=== PATIENT | female | born 1940 | race Caucasian/White ===

== ENCOUNTER 2016-08-28 09:47 | Outpatient (CLI) | payer MEDICARE, OTHER | END 2016-08-28 09:48 | disposition home or self-care (01) | DX: M81.0 Age-related osteoporosis without current pathological fracture (principal) ==

== ENCOUNTER 2016-09-30 10:14 | Outpatient (CLI) | payer MEDICARE, OTHER | END 2016-09-30 10:15 | disposition home or self-care (01) | DX: Z79.899 Other long term (current) drug therapy (principal); E78.5 Hyperlipidemia, unspecified; I49.9 Cardiac arrhythmia, unspecified ==

== ENCOUNTER 2017-06-24 10:25 | Outpatient (CLI) | payer MEDICARE, OTHER ==
[2017-06-24 19:14] LABS: BASOPHILS # (AUTO) 0.1 10^3/uL (0.0-0.1); BASOPHILS % (AUTO) 0.7 %; EOSINOPHILS # (AUTO) 0.4 10^3/uL (0.0-0.7); EOSINOPHILS % (AUTO) 5.1 %; HGB - HEMOGLOBIN 13.9 g/dL (12.0-16.0); LYMPHOCYTES # (AUTO) 1.3 10^3/uL (1.5-3.5); LYMPHOCYTES % (AUTO) 17.3 %; MEAN CORPUSCULAR HEMOGLOBIN 29.4 pg (27.0-31.0); MEAN CORPUSCULAR HGB CONC 33.1 g/dL (32.0-36.0); MEAN CORPUSCULAR VOLUME 88.9 fL (81.0-99.0); MEAN PLATELET VOLUME 7.8 fL (7.9-10.8); MONOCYTES # (AUTO) 0.4 10^3/uL (0.0-1.0); MONOCYTES % (AUTO) 4.6 %; NEUTROPHILS # (AUTO) 5.5 10^3/uL (1.5-6.6); NEUTROPHILS % (AUTO) 72.3 %; PLT - PLATELET COUNT 253 10^3/uL (130-450); RED BLOOD COUNT 4.74 10^6/uL (4.20-5.40); RED CELL DISTRIBUTION WIDTH 13.2 % (12.0-15.0); WHITE BLOOD COUNT 7.7 x10^3/uL (4.8-10.8)
[2017-06-24 19:41] LABS: ALBUMIN 4.2 g/dL (3.2-5.5); ALBUMIN/GLOBULIN RATIO 1.4 (1.0-2.2); ALKALINE PHOSPHATASE 114 IU/L (42-121); ALT ALANINE AMINOTRANSFERASE 23 IU/L (10-60); AST ASPARTATE AMINOTRANSFERASE 29 IU/L (10-42); BILIRUBIN,TOTAL 1.8 mg/dL (0.2-1.0); BUN - BLOOD UREA NITROGEN 14 mg/dL (6-20); CALCIUM 9.3 mg/dL (8.5-10.3); CARBON DIOXIDE - CO2 24 mmol/L (21-32); CHLORIDE 102 mmol/L (101-111); CHOL/HDL RATIO 2.8 (<4.4); CHOLESTEROL 190 mg/dL; CREATININE 0.6 mg/dL (0.4-1.0); GFR - MDRD 97 (>89); GLUCOSE 92 mg/dL (70-100); HDL CHOLESTEROL 68 mg/dL; LDL CHOLESTEROL,CALCULATED 111 mg/dL; LDL/HDL RATIO 1.6 (<4.4); MAGNESIUM 2.2 mg/dL (1.7-2.8); SODIUM 134 mmol/L (135-145); TOTAL PROTEIN 7.2 g/dL (6.7-8.2); VLDL CHOLESTEROL 11 mg/dL
== END 2017-06-24 10:26 | disposition home or self-care (01) ==
LOC: LAB.WCP 10:25
PROVIDERS: ATTEND Internal Medicine Cardiovascular Disease
DX: E78.5 Hyperlipidemia, unspecified (principal); I47.1 Supraventricular tachycardia; R00.2 Palpitations; I49.3 Ventricular premature depolarization
CPT/HCPCS: 36415; 80053; 80061; 83735; 84443; 85025

== ENCOUNTER 2018-04-01 14:10 | Outpatient (CLI) | payer MEDICARE, OTHER ==
[2018-04-01 14:46] LABS: BASOPHILS % (AUTO) 0.2 %; EOSINOPHILS # (AUTO) 0.2 10^3/uL (0.0-0.7); EOSINOPHILS % (AUTO) 1.5 %; LYMPHOCYTES # (AUTO) 1.5 10^3/uL (1.5-3.5); LYMPHOCYTES % (AUTO) 14.4 %; MEAN CORPUSCULAR HEMOGLOBIN 30.3 pg (27.0-31.0); MEAN CORPUSCULAR HGB CONC 34.7 g/dL (32.0-36.0); MEAN CORPUSCULAR VOLUME 87.3 fL (81.0-99.0); MEAN PLATELET VOLUME 7.1 fL (7.9-10.8); MONOCYTES # (AUTO) 0.6 10^3/uL (0.0-1.0); MONOCYTES % (AUTO) 6.1 %; NEUTROPHILS % (AUTO) 77.8 %; PLT - PLATELET COUNT 263 10^3/uL (130-450); RED BLOOD COUNT 4.61 10^6/uL (4.20-5.40); RED CELL DISTRIBUTION WIDTH 12.5 % (12.0-15.0); WHITE BLOOD COUNT 10.2 x10^3/uL (4.8-10.8)
[2018-04-01 15:44] LABS: ALBUMIN 4.1 g/dL (3.2-5.5); ALBUMIN/GLOBULIN RATIO 1.3 (1.0-2.2); BILIRUBIN,TOTAL 1.8 mg/dL (0.2-1.0); CALCIUM 9.5 mg/dL (8.5-10.3); CREATININE 0.5 mg/dL (0.4-1.0); TOTAL PROTEIN 7.2 g/dL (6.7-8.2)
== END 2018-04-01 14:11 | disposition home or self-care (01) ==
LOC: LAB 14:10
PROVIDERS: ATTEND Nurse Practitioner
DX: R07.81 Pleurodynia (principal); R10.11 Right upper quadrant pain
CPT/HCPCS: 36415; 80053; 85025

== ENCOUNTER 2018-04-03 09:40 | Outpatient (CLI) | payer MEDICARE, OTHER ==
--- NOTE | 2018-04-03 11:08 | Ultrasound Report ---
Reason: ABDOMINAL PAIN, RUQ, RIB PAIN, RIGHT SIDED Procedure Date: 04/03/2018 Accession Number: [id number] / [id number] Procedure: US - Abdomen Limited CPT Code: FULL RESULT: EXAM: ABDOMEN ULTRASOUND LIMITED, RUQ EXAM DATE: 04/03/2018 10:29 AM. CLINICAL HISTORY: ABDOMINAL PAIN, RUQ, RIB PAIN, RIGHT SIDED. COMPARISON: RIBS W/PA CHEST RT 03/31/2018 11:56 AM ABD/PEL 12/19/2008 1:23 PM. TECHNIQUE: Real-time scanning was performed with static images obtained. FINDINGS: Liver: Normal in size and echotexture. 12.6 cm. No focal lesions are identified. Main portal vein flow: Hepatopetal. Gallbladder: Normal. No stones, wall thickening, or sonographic Navarrete's sign. Biliary System: CBD measures 4 mm. No intrahepatic or extrahepatic ductal dilatation. Other: Right kidney unremarkable. IMPRESSION: Normal. No cholelithiasis or cholecystitis. RADIA
== END 2018-04-03 09:41 | disposition home or self-care (01) ==
LOC: DI 09:40
PROVIDERS: ATTEND Nurse Practitioner
DX: R10.11 Right upper quadrant pain (principal); R07.81 Pleurodynia
CPT/HCPCS: 76705

== ENCOUNTER 2018-04-14 21:12 | Outpatient (CLI) | payer MEDICARE, OTHER | END 2018-04-14 21:13 | disposition critical access hospital (66) | LOC: EMS 21:12 | PROVIDERS: ATTEND Surgery | DX: R55 Syncope and collapse (principal); R11.2 Nausea with vomiting, unspecified; R06.00 Dyspnea, unspecified | CPT/HCPCS: A0425; A0429 ==

== ENCOUNTER 2018-04-14 21:33 | Emergency (ER) | payer MEDICARE, OTHER ==
--- NOTE | 2018-04-14 22:03 | ED Physician Documentation ---
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 family noted she turned very pale. she had brief nausea, emesis x 1. she was helped to ground, no loss of consciousness. after several minutes, she returned to baseline and is asymptomatic on ED arrival Review of Systems Constitutional: reports: Reviewed and negative Cardiac: reports: Reviewed and negative Respiratory: reports: Reviewed and negative GI: reports: Nausea, Vomiting. denies: Abdominal Pain : denies: Dysuria, Frequency Neurologic: reports: Generalized weakness (resolved), Syncope. 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 - Present Medications Home Medications: Ambulatory Orders Medication Instructions Recorded Confirmed Albuterol Sulfate [Proair Hfa 04/14/18 Inhaler] Aspirin [Aspirin EC] 81 mg PO 04/14/18 Cholecalciferol (Vitamin D3) 1,000 unit PO 04/14/18 [Vitamin D3] FLUoxetine [PROzac] 20 mg PO DAILY 04/14/18 Fluticasone [Flonase] 1 sprays GAEL DAILY 04/14/18 Fluticasone/Salmeterol [Advair 04/14/18 250-50 Diskus] Glucosamine HCl/Chondroitin Liz 1 each PO 04/14/18 [Endur-Flex Sr Tablet] Simvastatin [Zocor] 20 mg PO 04/14/18 Zinc 50 mg PO 04/14/18 - Allergies Allergies/Adverse Reactions: Allergies Allergy/AdvReac Type Severity Reaction Status Date / Time Sulfa (Sulfonamide Allergy Unknown Verified 04/14/18 21:42 Antibiotics) - Social History Does the pt smoke?: No Smoking Status: Never smoker Does the pt drink ETOH?: No Does the pt have substance abuse?: No - POLST Patient has POLST: No PD ED PE NORMAL - Vitals Vital signs reviewed: Yes - General General: Alert and oriented X 3, No acute distress, Well developed/nourished - HEENT HEENT: Atraumatic, PERRL, EOMI, Moist mucous membranes - Neck Neck: Supple, no meningeal sign - Cardiac Cardiac: RRR, No murmur, No gallop, No rub - Respiratory Respiratory: No respiratory distress, Clear bilaterally - Abdomen Abdomen: Normal bowel sounds, Soft, Non tender - Derm Derm: Normal color, Warm and dry - Extremities Extremities: No edema - Neuro Neuro: Alert and oriented X 3, 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, No motor deficit, No sensory deficit, Normal speech Eye Opening: Spontaneous Motor: Obeys Commands Verbal: Oriented GCS Score: 15 Results - Vitals Vitals: Vital Signs - 24 hr 04/14/18 04/14/18 04/14/18 21:36 22:49 23:26 Temperature 36.3 C L Heart Rate 95 85 94 Respiratory 20 16 19 Rate Blood Pressure 107/73 126/83 H 141/93 H O2 Saturation 97 97 97 Oxygen O2 Source Room air - EKG (time done) No standard instances Rate: Rate (enter#) (86) Rhythm: NSR [place]: Normal Intervals: Normal [place] QRS: Normal Ischemia: Normal ST segments - Labs Labs: Laboratory Tests 04/14/18 04/14/18 04/14/18 22:35 22:35 22:35 WBC 9.1 RBC 4.29 Hgb 12.8 Hct 37.6 MCV 87.6 MCH 29.9 MCHC 34.1 RDW 12.4 Plt Count 254 MPV 6.9 L Neut # (Auto) 7.0 H Lymph # (Auto) 1.3 L [place] # (Auto) 0.6 Eos # (Auto) 0.3 Baso # (Auto) 0.0 Absolute Nucleated RBC 0.00 Nucleated RBC % 0.0 Sodium 135 Potassium 4.0 Chloride 103 Carbon Dioxide 24 Anion Gap 8.0 BUN 19 Creatinine 0.6 Estimated GFR (MDRD) 97 Glucose 116 H Calcium 8.6 Troponin I < 0.04 PD MEDICAL DECISION MAKING - ED course Complexity details: reviewed results, re-evaluated patient, considered differential, d/w patient, d/w family Departure - Departure Disposition: 01 Home, Self Care Clinical Impression: Near syncope Condition: Good Instructions: ED Near Syncope Unkn Follow-Up: [facility] [Provider Group] [facility] [Provider Group] Discharge Date/Time: 04/14/18 23:32
[2018-04-14] MEDS ORDERED: SODIUM CHLORIDE 0.9% 500 ML IV STA (22:19)
[2018-04-14 22:46] LABS: BASOPHILS % (AUTO) 0.4 %; EOSINOPHILS # (AUTO) 0.3 10^3/uL (0.0-0.7); EOSINOPHILS % (AUTO) 2.8 %; HGB - HEMOGLOBIN 12.8 g/dL (12.0-16.0); LYMPHOCYTES # (AUTO) 1.3 10^3/uL (1.5-3.5); MEAN CORPUSCULAR HEMOGLOBIN 29.9 pg (27.0-31.0); MEAN CORPUSCULAR HGB CONC 34.1 g/dL (32.0-36.0); MEAN CORPUSCULAR VOLUME 87.6 fL (81.0-99.0); MEAN PLATELET VOLUME 6.9 fL (7.9-10.8); MONOCYTES # (AUTO) 0.6 10^3/uL (0.0-1.0); NEUTROPHILS % (AUTO) 76.8 %; PLT - PLATELET COUNT 254 10^3/uL (130-450); RED BLOOD COUNT 4.29 10^6/uL (4.20-5.40); RED CELL DISTRIBUTION WIDTH 12.4 % (12.0-15.0); WHITE BLOOD COUNT 9.1 x10^3/uL (4.8-10.8)
[2018-04-14 22:56] LABS: CALCIUM 8.6 mg/dL (8.5-10.3); CREATININE 0.6 mg/dL (0.4-1.0)
[2018-04-14 23:27] VITALS: BP 141/93
== END 2018-04-14 23:32 | disposition home or self-care (01) ==
LOC: EDUNIT# → ED 21:33
DX: R55 Syncope and collapse (principal); Z79.82 Long term (current) use of aspirin
CPT/HCPCS: 36415; 80048; 84484; 85025; 93005; 96360; 99283; 99284

== ENCOUNTER 2018-06-08 08:00 | Outpatient (CLI) | payer MEDICARE, OTHER ==
[2018-06-08 13:02] LABS: BASOPHILS % (AUTO) 0.3 %; EOSINOPHILS # (AUTO) 0.3 10^3/uL (0.0-0.7); EOSINOPHILS % (AUTO) 4.9 %; HGB - HEMOGLOBIN 14.1 g/dL (12.0-16.0); LYMPHOCYTES # (AUTO) 1.1 10^3/uL (1.5-3.5); MEAN CORPUSCULAR HEMOGLOBIN 29.9 pg (27.0-31.0); MEAN CORPUSCULAR HGB CONC 34.3 g/dL (32.0-36.0); MEAN CORPUSCULAR VOLUME 87.3 fL (81.0-99.0); MEAN PLATELET VOLUME 7.7 fL (7.9-10.8); MONOCYTES # (AUTO) 0.4 10^3/uL (0.0-1.0); NEUTROPHILS # (AUTO) 4.1 10^3/uL (1.5-6.6); NEUTROPHILS % (AUTO) 69.8 %; PLT - PLATELET COUNT 253 10^3/uL (130-450); RED CELL DISTRIBUTION WIDTH 13.1 % (12.0-15.0); WHITE BLOOD COUNT 5.9 x10^3/uL (4.8-10.8)
[2018-06-08 13:10] LABS: ALBUMIN/GLOBULIN RATIO 1.3 (1.0-2.2); ALKALINE PHOSPHATASE 101 IU/L (42-121); ALT ALANINE AMINOTRANSFERASE 33 IU/L (10-60); AST ASPARTATE AMINOTRANSFERASE 37 IU/L (10-42); BILIRUBIN,TOTAL 1.9 mg/dL (0.2-1.0); BUN - BLOOD UREA NITROGEN 12 mg/dL (6-20); CHOLESTEROL 184 mg/dL; CREATININE 0.6 mg/dL (0.4-1.0); GFR - MDRD 97 (>89); HDL CHOLESTEROL 62 mg/dL; LDL CHOLESTEROL,CALCULATED 103 mg/dL; LDL/HDL RATIO 1.7 (<4.4); THYROID STIMULATING HORMONE 0.87 uIU/mL (0.34-5.60); VLDL CHOLESTEROL 19 mg/dL
[2018-06-08 14:29] LABS: CALCIUM 9.3 mg/dL (8.5-10.3); CARBON DIOXIDE - CO2 27 mmol/L (21-32); CHLORIDE 98 mmol/L (101-111); GLUCOSE 90 mg/dL (70-100); SODIUM 132 mmol/L (135-145)
== END 2018-06-08 23:59 | disposition home or self-care (01) ==
LOC: LAB.WCP 08:00
PROVIDERS: ATTEND Physician Assistant Medical
DX: E78.5 Hyperlipidemia, unspecified (principal); M81.0 Age-related osteoporosis without current pathological fracture; R53.83 Other fatigue
CPT/HCPCS: 36415; 80053; 80061; 82306; 82607; 83721; 84443; 85025

== ENCOUNTER 2018-06-18 12:15 | Emergency (ER) | payer MEDICARE, OTHER ==
--- NOTE | 2018-06-18 12:33 | ED Physician Documentation ---
PD HPI CHEST PAIN - Stated complaint Stated Complaint: SOA/HR ELEVATED - History obtained from History obtained from: Patient, Family - History of Present Illness Timing - onset: Today (This is a lady with paroxysmal atrial fibrillation who at 1130 this morning developed sudden onset palpitations and shakiness with shortness of breath but no chest pain. She has had similar episodes before but they were very fleeting, only seconds at a time.) Review of Systems Constitutional: denies: Fever, Chills Cardiac: reports: Palpitations. denies: Chest pain / pressure Respiratory: reports: Dyspnea. 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 - Present Medications Home Medications: Ambulatory Orders Medication Instructions Recorded Confirmed Albuterol Sulfate [Proair Hfa 04/14/18 Inhaler] Aspirin [Aspirin EC] 81 mg PO 04/14/18 Cholecalciferol (Vitamin D3) 1,000 unit PO 04/14/18 [Vitamin D3] FLUoxetine [PROzac] 20 mg PO DAILY 04/14/18 Fluticasone [Flonase] 1 sprays GAEL DAILY 04/14/18 Fluticasone/Salmeterol [Advair 04/14/18 250-50 Diskus] Glucosamine HCl/Chondroitin Liz 1 each PO 04/14/18 [Endur-Flex Sr Tablet] Simvastatin [Zocor] 20 mg PO 04/14/18 - Allergies Allergies/Adverse Reactions: Allergies Allergy/AdvReac Type Severity Reaction Status Date / Time Sulfa (Sulfonamide Allergy Unknown Verified 06/18/18 12:30 Antibiotics) - Social History Does the pt smoke?: No Smoking Status: Never smoker Does the pt drink ETOH?: No Does the pt have substance abuse?: No - POLST Patient has POLST: No PD ED PE NORMAL - Vitals Vital signs reviewed: Yes - General General: Alert and oriented X 3, No acute distress - Cardiac Cardiac: Other (Rapid regular rate, SVT on the monitor) - Respiratory Respiratory: No respiratory distress, Clear bilaterally - Abdomen Abdomen: Non tender - Neuro Neuro: Alert and oriented X 3, Normal speech Results - Vitals Vitals: Vital Signs - 24 hr 06/18/18 06/18/18 12:38 12:47 Temperature 36.7 C Heart Rate 188 H Respiratory 22 Rate Blood Pressure 110/86 H Blood Pressure 107/78 [Right] O2 Saturation 98 Oxygen O2 Source Room air - EKG (time done) 1220 Rate: Rate (enter#) (183) Rhythm: SVT (Narrow complex) Ischemia: ST depression (Especially anterior and lateral) Computer interpretation: Agree with computer 1238 Rate: Rate (enter#) (91) Rhythm: NSR [place]: Normal QRS: Low voltage Ischemia: Normal ST segments Computer interpretation: Agree with computer - Labs Labs: Laboratory Tests 06/18/18 06/18/18 12:30 12:30 WBC 9.3 RBC 5.06 Hgb 14.9 Hct 44.2 MCV 87.4 MCH 29.5 MCHC 33.8 RDW 13.2 Plt Count 255 MPV 7.1 L Neut # (Auto) 6.1 Lymph # (Auto) 2.2 [place] # (Auto) 0.6 Eos # (Auto) 0.3 Baso # (Auto) 0.0 Absolute Nucleated RBC 0.00 Nucleated RBC % 0.0 Sodium 135 Potassium 4.1 Chloride 104 Carbon Dioxide 22 Anion Gap 9.0 BUN 20 Creatinine 0.8 Estimated GFR (MDRD) 69 L Glucose 119 H Calcium 9.4 Magnesium 2.2 Total Bilirubin 1.5 H AST 38 ALT 35 Alkaline Phosphatase 120 Total Protein 6.9 Albumin 4.1 Globulin 2.8 Albumin/Globulin Ratio 1.5 Lipase 53 H PD MEDICAL DECISION MAKING - ED course ED course: She was attended to immediately on presentation, vagal maneuvers were successful in converting her. Departure - Departure Disposition: Home, Self Care Clinical Impression: Supraventricular tachycardia Condition: Good Record reviewed to determine appropriate education?: Yes Instructions: ED Tachycardia Pat PSVT Comments: Followup with Dr Davalos, call Wednesday for next available appointment. Take the copies of today's EKGs with you to that appointment. For recurrent symptoms, try the bearing down maneuver we showed you here, return if that does not fix you.
[2018-06-18 12:39] LABS: BASOPHILS % (AUTO) 0.4 %; EOSINOPHILS # (AUTO) 0.3 10^3/uL (0.0-0.7); EOSINOPHILS % (AUTO) 3.5 %; HGB - HEMOGLOBIN 14.9 g/dL (12.0-16.0); LYMPHOCYTES # (AUTO) 2.2 10^3/uL (1.5-3.5); LYMPHOCYTES % (AUTO) 23.2 %; MEAN CORPUSCULAR HEMOGLOBIN 29.5 pg (27.0-31.0); MEAN CORPUSCULAR HGB CONC 33.8 g/dL (32.0-36.0); MEAN CORPUSCULAR VOLUME 87.4 fL (81.0-99.0); MEAN PLATELET VOLUME 7.1 fL (7.9-10.8); MONOCYTES # (AUTO) 0.6 10^3/uL (0.0-1.0); MONOCYTES % (AUTO) 6.6 %; NEUTROPHILS # (AUTO) 6.1 10^3/uL (1.5-6.6); NEUTROPHILS % (AUTO) 66.3 %; PLT - PLATELET COUNT 255 10^3/uL (130-450); RED BLOOD COUNT 5.06 10^6/uL (4.20-5.40); RED CELL DISTRIBUTION WIDTH 13.2 % (12.0-15.0); WHITE BLOOD COUNT 9.3 x10^3/uL (4.8-10.8)
[2018-06-18 12:53] LABS: ALBUMIN 4.1 g/dL (3.2-5.5); ALBUMIN/GLOBULIN RATIO 1.5 (1.0-2.2); BILIRUBIN,TOTAL 1.5 mg/dL (0.2-1.0); CALCIUM 9.4 mg/dL (8.5-10.3); CREATININE 0.8 mg/dL (0.4-1.0); MAGNESIUM 2.2 mg/dL (1.7-2.8); TOTAL PROTEIN 6.9 g/dL (6.7-8.2)
[2018-06-18 13:05] VITALS: BP 102/71
== END 2018-06-18 13:07 | disposition home or self-care (01) ==
LOC: ED 12:15
DX: I47.1 Supraventricular tachycardia (principal); I48.0 Paroxysmal atrial fibrillation; Z79.82 Long term (current) use of aspirin; J45.909 Unspecified asthma, uncomplicated
CPT/HCPCS: 36415; 80053; 83690; 83735; 85025; 93005; 99283

== ENCOUNTER 2018-09-06 08:00 | Outpatient (CLI) | payer MEDICARE, OTHER ==
[2018-09-06 19:22] LABS: BUN - BLOOD UREA NITROGEN 14 mg/dL (6-20); CALCIUM 9.4 mg/dL (8.5-10.3); CARBON DIOXIDE - CO2 25 mmol/L (21-32); CHLORIDE 103 mmol/L (101-111); CREATININE 0.6 mg/dL (0.4-1.0); DIGOXIN 0.2 ng/mL; GFR - MDRD 97 (>89); GLUCOSE 86 mg/dL (70-100); MAGNESIUM 2.4 mg/dL (1.7-2.8); SODIUM 138 mmol/L (135-145)
== END 2018-09-06 23:59 | disposition home or self-care (01) ==
LOC: LAB.WCP 08:00
PROVIDERS: ATTEND Internal Medicine Cardiovascular Disease
DX: I47.1 Supraventricular tachycardia (principal); R00.2 Palpitations; I49.3 Ventricular premature depolarization
CPT/HCPCS: 36415; 80048; 80162; 83735

== ENCOUNTER 2018-12-02 09:44 | Outpatient (CLI) | payer MEDICARE, OTHER ==
--- NOTE | 2018-12-02 10:22 | Mammography Report ---
Reason: SCREENING MAMMO Procedure Date: 12/02/2018 Accession Number: [id number] / [id number] Procedure: SELMA - Screening Mammo Dig Bilat CPT Code: FULL RESULT: EXAM: Screening Mammo Dig Bilat DATE: 12/02/2018 10:15 AM CLINICAL HISTORY: Screening TECHNIQUE: (B) - Bilateral CC and MLO views were obtained. COMPARISON: 08/01/2015, 07/14/2014 PARENCHYMAL PATTERN: (A) - The breasts demonstrate scattered fibroglandular densities bilaterally. FINDINGS: There are no suspicious masses, calcifications, or areas of distortion. IMPRESSION: Negative examination. BI-RADS category 1. RECOMMENDATION: (ANNUAL) - Recommend routine annual screening mammography. BI-RADS CATEGORY: (1) - Negative. STANDARD QUALIFYING STATEMENTS: 1. This examination was not reviewed with the aid of Computer-Aided Detection (CAD). 2. A negative or benign imaging report should not preclude biopsy if clinically suspicious findings are present. 3. Dense breasts may obscure an underlying neoplasm. 4. This examination was reviewed without the aid of 3D breast imaging (tomosynthesis).
== END 2018-12-02 09:45 | disposition home or self-care (01) ==
LOC: DI 09:44
DX: Z12.31 Encounter for screening mammogram for malignant neoplasm of breast (principal)
CPT/HCPCS: 77067

== ENCOUNTER 2019-04-05 08:00 | Outpatient (CLI) | payer MEDICARE, OTHER ==
[2019-04-05 13:22] LABS: ALBUMIN 3.9 g/dL (3.2-5.5); ALBUMIN/GLOBULIN RATIO 1.2 (1.0-2.2); ALKALINE PHOSPHATASE 112 IU/L (42-121); ALT ALANINE AMINOTRANSFERASE 28 IU/L (10-60); AST ASPARTATE AMINOTRANSFERASE 38 IU/L (10-42); BILIRUBIN,TOTAL 1.5 mg/dL (0.2-1.0); BUN - BLOOD UREA NITROGEN 17 mg/dL (6-20); CALCIUM 9.4 mg/dL (8.5-10.3); CARBON DIOXIDE - CO2 27 mmol/L (21-32); CHLORIDE 103 mmol/L (101-111); CHOL/HDL RATIO 2.9 (<4.4); CHOLESTEROL 192 mg/dL; CREATININE 0.6 mg/dL (0.4-1.0); GFR - MDRD 96 (>89); GLUCOSE 92 mg/dL (70-100); HDL CHOLESTEROL 67 mg/dL; LDL CHOLESTEROL,CALCULATED 110 mg/dL; LDL/HDL RATIO 1.6 (<4.4); SODIUM 137 mmol/L (135-145); TOTAL PROTEIN 7.1 g/dL (6.7-8.2); VLDL CHOLESTEROL 15 mg/dL
== END 2019-04-05 23:59 | disposition home or self-care (01) ==
LOC: LAB.WCP 08:00
PROVIDERS: ATTEND Physician Assistant Medical
DX: E78.5 Hyperlipidemia, unspecified (principal)
CPT/HCPCS: 36415; 80053; 80061; 83721

== ENCOUNTER 2020-03-10 11:48 | Outpatient (CLI) | payer MEDICARE, OTHER | END 2020-03-10 11:49 | disposition critical access hospital (66) | LOC: EMS 11:48 | PROVIDERS: ATTEND Emergency Medicine | DX: M54.9 Dorsalgia, unspecified (principal); R07.81 Pleurodynia | CPT/HCPCS: A0425; A0429 ==

== ENCOUNTER 2020-03-10 12:29 | Emergency (ER) | payer MEDICARE, OTHER ==
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
[2020-03-10 12:58] LABS: BASOPHILS % (AUTO) 0.4 %; EOSINOPHILS # (AUTO) 0.2 10^3/uL (0.0-0.7); EOSINOPHILS % (AUTO) 2.6 %; HGB - HEMOGLOBIN 14.3 g/dL (12.0-16.0); LYMPHOCYTES # (AUTO) 1.5 10^3/uL (1.5-3.5); LYMPHOCYTES % (AUTO) 16.7 %; MEAN CORPUSCULAR HEMOGLOBIN 29.2 pg (27.0-31.0); MEAN CORPUSCULAR HGB CONC 33.6 g/dL (32.0-36.0); MEAN CORPUSCULAR VOLUME 87.1 fL (81.0-99.0); MEAN PLATELET VOLUME 8.9 fL (7.9-10.8); MONOCYTES # (AUTO) 0.4 10^3/uL (0.0-1.0); MONOCYTES % (AUTO) 4.7 %; NEUTROPHILS # (AUTO) 6.9 10^3/uL (1.5-6.6); NEUTROPHILS % (AUTO) 74.7 %; PLT - PLATELET COUNT 259 10^3/uL (130-450); RED BLOOD COUNT 4.89 10^6/uL (4.20-5.40); RED CELL DISTRIBUTION WIDTH 12.6 % (12.0-15.0); WHITE BLOOD COUNT 9.2 x10^3/uL (4.8-10.8)
[2020-03-10 13:01] LABS: ALBUMIN 4.1 g/dL (3.2-5.5); ALBUMIN/GLOBULIN RATIO 1.6 (1.0-2.2); CALCIUM 9.8 mg/dL (8.5-10.3); CREATININE 0.6 mg/dL (0.4-1.0); TOTAL PROTEIN 6.7 g/dL (6.7-8.2)
[2020-03-10 13:02] LABS: INR 1.3 (0.8-1.2); PT - PROTHROMBIN TIME 14.4 secs (9.9-12.6)
[2020-03-10 13:09] LABS: PARTIAL THROMBOPLASTIN TIME 32.7 secs (24.9-33.3)
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
[2020-03-10] MEDS ORDERED: IOVERSOL 320 100 ML VIAL IVP ONE ×2 (13:23→14:30)
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
--- NOTE | 2020-03-10 13:29 | CT Report ---
PROCEDURE: Abdomen/Pelvis W INDICATIONS: Abdominal trauma, blunt CONTRAST: IV CONTRAST: Optiray 320 ml: 100 PO CONTRAST: *NO PO CONTRAST TECHNIQUE: After the administration of nonionic IV contrast, 5 mm thick sections acquired from the diaphragms to the symphysis. 5 mm thick coronal and sagittal reformats were acquired. For radiation dose reducti on, the following was used: automated exposure control, adjustment of mA and/or kV according to rodolfo ent size. COMPARISON: Correlation is made with the accompanying CT examinations dated 03/10/2020 FINDINGS: Image quality: Excellent. ABDOMEN: Lung bases: Lung bases demonstrate mild dependent atelectasis. Heart size is normal. A small hiatal hernia is incidentally noted. Solid organs: Liver and spleen are normal in size and enhancement. Gallbladder wall does not appear thickened. Biliary system is non dilated. Pancreas enhances normally. No adrenal nodules. Kidneys demonstrate normal size and enhancement. A water density cyst is seen within the posterior s uperior left kidney that measures 1.5 cm. Bilateral mild to moderate hydronephrosis is seen, without a cause of hydronephrosis seen. Peritoneum and bowel: Bowel loops demonstrate normal wall thickness and caliber. No free fluid or a ir. A moderate amount of stool is seen within the colon. Nodes and vessels: No retroperitoneal or mesenteric adenopathy by size criteria. Aorta and inferior vena cava are normal in size. The SMA is patent. Normal flow is seen within the portal vein. Miscellaneous: No ventral hernias. PELVIS: Genitourinary: Bladder wall thickness is normal. This patient is status post hysterectomy. No adnex al masses can be seen. Miscellaneous: No inguinal hernias or adenopathy. Bones: No suspicious bony lesions. No acute appearing vertebral body compression fractures. There i s a remote T1 anterior wedge deformity. Mild levoconvex scoliotic curvature is seen. Osteopenia and moderate to prominent degenerative changes are seen throughout. IMPRESSION: No significant posttraumatic abnormality is identified. There is a moderate amount of stool seen within the colon. Please correlate with clinical constipatio n. Incidental note is made of: Small hiatal hernia Simple appearing right renal cyst Hysterectomy Remote L1 compression deformity Levoconvex scoliotic curvature Reviewed by: Jw Diggs MD on 03/10/2020 12:28 PM DANIEL Approved by: Jw Diggs MD on 03/10/2020 12:28 PM DANIEL Station ID: [id number]
[2020-03-10] MEDS ORDERED: BACITRACIN ZINC OINT 1 PACKET TOP STA (14:16)
[2020-03-10] MEDS ORDERED: ACETAMINOPHEN 325 MG TABLET PO STA (14:24)
[2020-03-10 15:10] VITALS: BP 143/106
== END 2020-03-10 15:30 | disposition home or self-care (01) ==
LOC: EDUNIT# → ED 12:29
DX: S80.212A Abrasion, left knee, initial encounter (principal); S50.312A Abrasion of left elbow, initial encounter; S81.012A Laceration without foreign body, left knee, initial encounter; V89.2XXA Person injured in unspecified motor-vehicle accident, traffic, initial encounter; Y93.89 Activity, other specified
CPT/HCPCS: 12001; 36415; 70450; 71260; 72125; 74177; 80053; 83690; 85025; 85610; 85730; 99282; 99284; A9270; Q9967; 86850; 86900; 86901

== ENCOUNTER 2020-03-29 07:00 | Outpatient (CLI) | payer MEDICARE, OTHER ==
--- NOTE | 2020-03-29 14:56 | Ultrasound Report ---
PROCEDURE: Head or Neck Soft Tissue INDICATIONS: THYROID NODULE TECHNIQUE: Real time scanning was performed of the neck region of interest, with image documentation . COMPARISON: Prior CT scan 03/10/2020 showing thyroid nodules reviewed.. FINDINGS: The thyroid is normal in size measuring 1.8 x 1.9 x 5.3 cm on the right and 1.3 x 2.1 x 4.2 cm on the left. The isthmus is 5 mm in thickness. Multiple bilateral thyroid nodules are present. At the mid right thyroid lobe posterolaterally there is a 9 x 9 x 24 mm nodule which is spongiform, h ypoechoic, smoothly marginated, with punctate calcifications. This yields a thyroid categorization sc ore of 5, moderately suspicious, with recommended follow-up by ultrasound in one, 3 and 5 years given its relatively small average dimensions. At the mid right thyroid lobe anteriorly there is a 5 x 14 x 14 mm nodule which is predominantly zeeshan d, hypoechoic, smooth in its margination, and with punctate calcifications. This yields a thyroid cat egorization score of 7, suspicious, with recommendation for fine-needle aspiration biopsy. At the inferior right thyroid lobe there is a 1.4 x 1.1 x 1.4 cm nodule that is predominantly cystic, hypoechoic, smoothly marginated and containing several punctate calcifications. This yields a catego rization score of 6, moderately suspicious, and given the relatively small size follow-up is recommen ded by ultrasound in 1, 2, 3 and 5 years. At the left superior thyroid lobe there is a 8 x 6 x 6 mm solid nodule that is hypoechoic and smoothl y marginated and which contains several punctate calcifications. This yields a categorization score o f 7, suspicious, with recommended annual follow-up by ultrasound. At the left mid thyroid lobe posteriorly there is a 7 x 8 x 9 mm nodule, predominantly cystic, hypoec hoic, smoothly marginated without calcifications. This yields a thyroid categorization score of 2, an d which is anticipated to be followed on subsequent thyroid ultrasound studies. The lower left thyroid lobe contains a 1.3 x 1.2 x 0.9 cm solid isoechoic nodule with smooth marginat ion and several punctate calcifications. This yields a thyroid categorization score of 7, and biopsy is recommended using fine-needle aspiration.. IMPRESSION: A biopsy is recommended for the mid right thyroid nodule anteriorly positioned and the left lower thy roid lobe nodule discussed above. Reviewed by: Antonio Woodson MD on 03/29/2020 2:55 PM PDT Approved by: Antonio Woodson MD on 03/29/2020 2:55 PM PDT Station ID: [id number]
== END 2020-03-29 23:59 | disposition home or self-care (01) ==
LOC: DI 07:00
PROVIDERS: ATTEND Physician Assistant Medical
DX: E04.1 Nontoxic single thyroid nodule (principal)
CPT/HCPCS: 76536

== ENCOUNTER 2020-03-29 11:08 | Outpatient (CLI) | payer MEDICARE, OTHER ==
[2020-03-29 12:11] LABS: ALBUMIN/GLOBULIN RATIO 1.3 (1.0-2.2); ALKALINE PHOSPHATASE 136 IU/L (42-121); ALT ALANINE AMINOTRANSFERASE 35 IU/L (10-60); AST ASPARTATE AMINOTRANSFERASE 31 IU/L (10-42); BILIRUBIN,TOTAL 1.6 mg/dL (0.2-1.0); BUN - BLOOD UREA NITROGEN 12 mg/dL (6-20); CALCIUM 9.2 mg/dL (8.5-10.3); CARBON DIOXIDE - CO2 25 mmol/L (21-32); CHLORIDE 96 mmol/L (101-111); CHOL/HDL RATIO 2.3 (<4.4); CHOLESTEROL 166 mg/dL; CREATININE 0.6 mg/dL (0.4-1.0); GLUCOSE 97 mg/dL (70-100); HDL CHOLESTEROL 73 mg/dL; LDL CHOLESTEROL,CALCULATED 85 mg/dL; LDL/HDL RATIO 1.2 (<4.4); SODIUM 133 mmol/L (135-145); TOTAL PROTEIN 7.1 g/dL (6.7-8.2); VLDL CHOLESTEROL 8 mg/dL
== END 2020-03-29 11:09 | disposition home or self-care (01) ==
LOC: LAB 11:08
PROVIDERS: ATTEND Physician Assistant Medical
DX: E78.5 Hyperlipidemia, unspecified (principal)
CPT/HCPCS: 36415; 80053; 80061; 83721

== ENCOUNTER 2020-04-15 12:15 | Outpatient (CLI) | payer MEDICARE, OTHER ==
[~2020-04-15 12:15] MED LIST: BUFFERED LIDOCAINE 10 ML SYRINGE ONE
[2020-04-15] MEDS ORDERED: BUFFERED LIDOCAINE 10 ML SYRINGE IU ONE (13:55)
--- NOTE | 2020-04-15 18:17 | Ultrasound Report ---
PROCEDURE: FNA Bx w/US Gnd 1st les INDICATIONS: THYROID NODULE TECHNIQUE: The indications, alternatives, benefits, risks, and complications of the procedure were explained to the patient. Written informed consent was obtained and placed in the chart. The area of interest wa s examined sonographically and a site was chosen for ultrasound guided percutaneous sampling. The sk in was prepared and draped in the usual fashion, and anesthetized with 1% lidocaine infiltrated from the skin down to the lesion. Multiple passes were then performed, with contents emptied into an appr [facility] pathology specimen container. A bandage was applied to the area of access at completion of t he study. COMPARISON: Thyroid ultrasound, 03/29/2020. FINDINGS: Location(s) of lesion(s) sampled: Mid right thyroid nodule. Maribel: 25 gauge hypodermic needles. Number of passes: 6 Medications: 1% lidocaine for local anaesthesia. Complications: None. IMPRESSION: 1. Successful ultrasound-guided fine needle aspiration biopsy of a moderately suspicious right mid th yroid nodule, with cytology results pending. 2. The 1.3 x 1.2 x 0.9 cm lower left thyroid lobe nodule described on the comparison ultrasound is to o low in location to be biopsied safely under ultrasound. Recommend ultrasound follow-up. A follow-up ultrasound may be obtained in 12 months. Reviewed by: Collette Bob MD on 04/15/2020 6:15 PM PDT Approved by: Collette Bob MD on 04/15/2020 6:15 PM PDT Station ID: [id number]
== END 2020-04-15 12:16 | disposition home or self-care (01) ==
LOC: DI 12:15
PROVIDERS: ATTEND Physician Assistant Medical
DX: E04.2 Nontoxic multinodular goiter (principal)
CPT/HCPCS: 10005

== ENCOUNTER 2020-05-15 14:17 | Outpatient (CLI) | payer MEDICARE, OTHER ==
--- NOTE | 2020-05-15 14:58 | DEXA Report ---
PROCEDURE: Dexa Spine and/or Hip INDICATIONS: POST MENOPAUSAL TECHNIQUE: Dual energy x-ray absorptiometry (DXA) was performed on a eigital System. Regions measur ed are the AP Spine, femoral neck, and if needed forearm. COMPARISON: DEXA 08/31/2016 FINDINGS: Lumbar Spine: Bone Mineral Density 0.900 g/cm/cm,T score -2.3, severe osteopenia Left Hip: Bone Mineral Density 0.636 g/cm/cm,T score -2.9, mild osteoporosis, stable. Left Femoral Neck: Bone Mineral Density 0.565 g/cm/cm, T score -3.4, moderate osteoporosis, minimally progressive. , Stable. (T score greater or equal to -1.0: NORMAL) (T score from -1.1 to -2.4: OSTEOPENIA) (T score less than or equal to -2.5 to: OSTEOPOROSIS) Impression: Persistent osteopenia and osteoporosis minimally progressive within the left femoral neck . Patients with diagnosis of osteoporosis or osteopenia should have regular bone mineral density assess ment. For those eligible for Medicare, routine testing is allowed once every 2 years. Testing frequ ency can be increased for patients who have rapidly progressing disease or for those who are receivin g medical therapy to restore bone mass. Reviewed by: Jennifer Wetzel MD on 05/15/2020 1:57 PM KYLE Approved by: Jennifer Wetzel MD on 05/15/2020 1:57 PM CA Station ID: [id number]
== END 2020-05-15 14:18 | disposition home or self-care (01) ==
LOC: DI 14:17
PROVIDERS: ATTEND Physician Assistant Medical
DX: M81.0 Age-related osteoporosis without current pathological fracture (principal); Z78.0 Asymptomatic menopausal state
CPT/HCPCS: 77080

== ENCOUNTER 2020-05-15 14:19 | Outpatient (CLI) | payer MEDICARE, OTHER ==
--- NOTE | 2020-05-17 13:17 | Mammography Report ---
BILATERAL DIGITAL SCREENING MAMMOGRAM 3D/2D: 05/15/2020 CLINICAL: Routine screening. Comparison is made to exams dated: 12/02/2018 mammogram, 08/01/2015 mammogram, 07/14/2014 mammogram, mammogram, 06/27/2011 mammogram, and 06/16/2010 mammogram - [facility]. The re are scattered fibroglandular elements in both breasts. No significant masses, calcifications, or other findings are seen in either breast. There has been no significant interval change. IMPRESSION: NEGATIVE There is no mammographic evidence of malignancy. A 1 year screening mammogram is recommended. This exam was interpreted at Station ID: [id number]. NOTE: For mammograms, a report in lay terms will be sent to the patient. Approximately 15% of breast malignancies will not be visualized mammographically. In the management of a palpable breast mass, a negative mammogram must not discourage biopsy of a clinically suspicious lesion. Electronically Signed By: Martin Trammell M.D., jr/[email or web address]:05/15/2020 15:32:55 ACR BI-RADS Category 1: Negative 3341F PARENCHYMAL PATTERN: (A) - The breast(s) demonstrate(s) scattered fibroglandular densities. BI-RADS CATEGORY: (1) - 1 RECOMMENDATION: (ANNUAL) - Recommend routine annual screening mammography. [id number] 1 year screening LATERALITY: (B)
== END 2020-05-15 14:20 | disposition home or self-care (01) ==
LOC: DI 14:19
DX: Z12.31 Encounter for screening mammogram for malignant neoplasm of breast (principal)
CPT/HCPCS: 77063; 77067

== ENCOUNTER 2020-05-31 15:13 | Outpatient (CLI) | payer MEDICARE, OTHER ==
--- NOTE | 2020-06-01 05:14 | XRAY Report ---
PROCEDURE: Ribs w/PA Chest LT INDICATIONS: LT RIB PAIN S/P FALL TECHNIQUE: 2 views of the left ribs were acquired, along with a single view chest. COMPARISON: CT examination dated 03/10/2020 plain film examination of the ribs dated 03/31/2018 FINDINGS: Surgical changes and devices: None. Bones and chest wall: Moderately displaced left posterolateral fourth rib fracture. Mildly displaced left posterolateral fifth rib fracture. No suspicious bony lesions. Overlying soft tissues appear un remarkable. Lungs and pleura: No pleural effusions or pneumothorax. Lungs appear clear. Mediastinum: Mediastinal contours appear normal. Heart size is normal. IMPRESSION: 1. Left rib fractures Reviewed by: Arnoldo Smyth MD on 05/31/2020 4:21 PM PST Approved by: Arnoldo Smyth MD on 05/31/2020 4:21 PM PST Station ID: [id number]
== END 2020-05-31 15:14 | disposition home or self-care (01) ==
LOC: DI.N 15:13
PROVIDERS: ATTEND Physician Assistant Medical
DX: S22.42XA Multiple fractures of ribs, left side, initial encounter for closed fracture (principal)

== ENCOUNTER 2020-09-24 08:00 | Outpatient (CLI) | payer MEDICARE, OTHER ==
[2020-09-24 17:54] LABS: BASOPHILS % (AUTO) 0.6 %; EOSINOPHILS # (AUTO) 0.4 10^3/uL (0.0-0.7); EOSINOPHILS % (AUTO) 5.3 %; HCT - HEMATOCRIT 43.8 % (37.0-47.0); HGB - HEMOGLOBIN 14.4 g/dL (12.0-16.0); LYMPHOCYTES # (AUTO) 1.2 10^3/uL (1.5-3.5); LYMPHOCYTES % (AUTO) 17.3 %; MEAN CORPUSCULAR HEMOGLOBIN 29.4 pg (27.0-31.0); MEAN CORPUSCULAR HGB CONC 32.9 g/dL (32.0-36.0); MEAN CORPUSCULAR VOLUME 89.4 fL (81.0-99.0); MONOCYTES # (AUTO) 0.5 10^3/uL (0.0-1.0); MONOCYTES % (AUTO) 6.9 %; NEUTROPHILS # (AUTO) 4.9 10^3/uL (1.5-6.6); NEUTROPHILS % (AUTO) 69.6 %; PLT - PLATELET COUNT 293 10^3/uL (130-450); RED CELL DISTRIBUTION WIDTH 13.3 % (12.0-15.0)
[2020-09-24 18:32] LABS: THYROID STIMULATING HORMONE 1.61 uIU/mL (0.34-5.60)
[2020-09-24 18:46] LABS: ALBUMIN 4.1 g/dL (3.2-5.5); ALBUMIN/GLOBULIN RATIO 1.5 (1.0-2.2); ALKALINE PHOSPHATASE 118 IU/L (42-121); ALT ALANINE AMINOTRANSFERASE 30 IU/L (10-60); AST ASPARTATE AMINOTRANSFERASE 34 IU/L (10-42); BILIRUBIN,TOTAL 2.3 mg/dL (0.2-1.0); BUN - BLOOD UREA NITROGEN 14 mg/dL (6-20); CALCIUM 9.7 mg/dL (8.5-10.3); CARBON DIOXIDE - CO2 25 mmol/L (21-32); CHLORIDE 99 mmol/L (101-111); CHOL/HDL RATIO 2.4 (<4.4); CHOLESTEROL 184 mg/dL; CREATININE 0.5 mg/dL (0.4-1.0); GFR - MDRD 119 (>89); GLUCOSE 98 mg/dL (70-100); HDL CHOLESTEROL 78 mg/dL; LDL CHOLESTEROL,CALCULATED 93 mg/dL; LDL/HDL RATIO 1.2 (<4.4); POTASSIUM 4.5 mmol/L (3.5-5.0); SODIUM 133 mmol/L (135-145); TOTAL PROTEIN 6.9 g/dL (6.7-8.2); TRIGLYCERIDES 66 mg/dL; VLDL CHOLESTEROL 13 mg/dL
== END 2020-09-24 23:59 | disposition home or self-care (01) ==
LOC: LAB.WCP 08:00
PROVIDERS: ATTEND Physician Assistant Medical
DX: E78.5 Hyperlipidemia, unspecified (principal); E04.1 Nontoxic single thyroid nodule; J20.9 Acute bronchitis, unspecified
CPT/HCPCS: 36415; 80053; 80061; 83721; 84443; 85025

== ENCOUNTER 2020-11-05 09:32 | Emergency (ER) | payer MEDICARE, OTHER ==
[2020-11-05] MEDS ORDERED: KETOROLAC 30 MG/ML VIAL IM STA (09:59)
--- NOTE | 2020-11-05 11:27 | CT Report ---
PROCEDURE: CHEST WO INDICATIONS: R lateral lower rib pain s/p fall TECHNIQUE: Noncontrast 5 mm thick sections acquired from the pulmonary apices to the posterior costophrenic angl es. 7 mm thick coronal and sagittal MIP reformats were then acquired. For radiation dose reduction, the following was used: automated exposure control, adjustment of mA and/or kV according to patient size. COMPARISON: CT chest 03/10/2020 FINDINGS: Image quality: Excellent. Lungs and pleura: There is mild linear atelectasis and scarring in the lungs. Within the posterior ri ght upper lobe, there is a peripheral subpleural subsolid partially groundglass nodular opacity measu ring up to 1.2 cm on series 4 image 96 which appears similar in size compared to the prior study. Wit hin the anterior left upper lobe, there is also a subsolid subpleural groundglass nodule on series 4 image 109 measuring up to 0.8 cm. This also appears similar to the prior study. In the left upper lob e, there is a small bilobed nodule measuring up to 0.5 cm on series 4 image 138. This appears new com pared to the prior study. No pleural effusions or pneumothorax. Central and peripheral airways are p atent and normal in caliber. Mediastinum: Heart size is borderline enlarged. There is mild coronary arterial vascular calcificat ion. No pericardial effusion. No mediastinal adenopathy by size criteria. Thoracic aorta and centra l pulmonary arteries are normal in size. Esophagus is normal in caliber. No hiatal hernia. Bones and chest wall: No suspicious bony lesions. No acute displaced rib fractures. There are old he aled fractures of the left third and fourth ribs anterolaterally. No vertebral body compression fract ures. No axillary or supraclavicular adenopathy by size criteria. There is a hypoattenuating nodule within the right thyroid lobe measuring up to approximately 1.6 cm. This was partially visualized on the prior CT. Abdomen: Visualized upper abdominal solid organs and bowel loops appear normal in the absence of con trast. IMPRESSION: 1. No acute displaced rib fracture identified. 2. No definite acute traumatic abnormality within the thorax. 3. Bilateral pulmonary nodules including some solid subpleural nodules in the upper lobes as describe d. Follow-up is recommended in 6 months to demonstrate stability 4. Nonspecific right thyroid nodule redemonstrated. Further evaluation is recommended with thyroid ul trasound if clinically indicated. CLINICAL RECOMMENDATION STATEMENTS: Thyroid nodules In patients ?35 years with an incidental thyroid nodule detected on CT, MRI, or extrathyroidal ultras ound, the Committee recommends further evaluation with dedicated thyroid ultrasound if the nodule is ?1.5 cm and has no suspicious imaging features, and if the patient has normal life expectancy. (ACR, 2014) Subsolid nodules Solitary pure ground-glass nodule * nodule size <6mm * no CT follow-up required * nodule size ?6mm * follow up CT at 6-12 months, then every 2 years until 5 years Solitary part-solid nodule * nodule size <6mm * no CT follow-up required * nodule size ?6mm * follow-up CT at 3-6 months * if unchanged, and solid component remains <6mm, then annual follow-up for 5 years Multiple subsolid nodules * nodule size <6mm * follow-up CT at 3-6 months * consider further follow-up at 2 and 4 years if stable * nodule size ?6mm * follow-up CT at 3-6 months * subsequent management based on the most suspicious nodule(s) Reviewed by: Onur Santos MD on 11/05/2020 11:26 AM PDT Approved by: Onur Santos MD on 11/05/2020 11:26 AM PDT Station ID: [id number]
--- NOTE | 2020-11-05 11:52 | ED Physician Documentation ---
History of Present Illness - Stated complaint Stated Complaint: RIB PX - Chief complaint Chief Complaint: Trauma Ch/Bk - History obtained from History obtained from: Patient - Additonal information Additional information: 80yF not on AC presents s/p fall on wednesday with R lower rib pain progressively worsening over the past 2-3 days, gradual onset, radiating to the lateral aspect and back, worse with pressing on it. denies sob, cp, n/v cough. Review of Systems Cardiac: reports: Other (chest wall pain) Respiratory: denies: Dyspnea, Cough GI: denies: Abdominal Pain, Nausea PD PAST MEDICAL HISTORY - Past Medical History Past Medical History: Yes Cardiovascular: High cholesterol, Atrial fibrillation Respiratory: Asthma Neuro: None Endocrine/Autoimmune: None GI: None [employer]: None : None HEENT: None Psych: Depression Musculoskeletal: Osteoarthritis Derm: Rosacea - Past Surgical History Past Surgical History: Yes /[employer]: Hysterectomy Cardiovascular: Other - Present Medications Home Medications: Ambulatory Orders Medication Instructions Recorded Confirmed Albuterol Sulfate [Proair Hfa 1 - 2 puffs IH Q4HR PRN 04/14/18 11/05/20 Inhaler] Cholecalciferol (Vitamin D3) 1,000 unit PO DAILY 04/14/18 11/05/20 [Vitamin D3] FLUoxetine [PROzac] 50 mg PO DAILY 04/14/18 11/05/20 Fluticasone [Flonase] 1 sprays GAEL DAILY PRN 04/14/18 Fluticasone/Salmeterol [Advair 1 puffs IH BID 04/14/18 11/05/20 250-50 Diskus] Glucosamine HCl/Chondroitin Liz 1 each PO DAILY 04/14/18 11/05/20 [Endur-Flex Sr Tablet] Simvastatin [Zocor] 20 mg PO HS 04/14/18 11/05/20 - Allergies Allergies/Adverse Reactions: Allergies Allergy/AdvReac Type Severity Reaction Status Date / Time latex Allergy Unknown Verified 11/05/20 09:36 milk Allergy Unknown Verified 11/05/20 09:36 Sulfa (Sulfonamide Allergy Unknown Verified 11/05/20 09:36 Antibiotics) terfenadine [From Seldane] Allergy Unknown Verified 11/05/20 09:36 oatmeal Allergy Respiratory Uncoded 03/10/20 12:43 tannic acid Allergy Respiratory Uncoded 03/10/20 12:43 - Social History Does the pt smoke?: No Smoking Status: Never smoker Does the pt drink ETOH?: No Does the pt have substance abuse?: No - Immunizations Immunizations are current?: Yes - POLST Patient has POLST: No PD ED PE NORMAL - Vitals Vital signs reviewed: Yes - General General: Alert and oriented X 3, No acute distress, Well developed/nourished - HEENT HEENT: Atraumatic, PERRL, EOMI - Neck Neck: Supple, no meningeal sign - Cardiac Cardiac: RRR, Other (R lower lateral chest wall ttp) - Respiratory Respiratory: No respiratory distress, Clear bilaterally - Abdomen Abdomen: Non tender, Non distended Results - Vitals Vitals: Vital Signs - 24 hr 11/05/20 11/05/20 11/05/20 09:36 11:01 12:06 Temperature 36 C L 36.0 C L Heart Rate 65 70 79 Respiratory 20 18 17 Rate Blood Pressure 138/66 H 127/85 H 135/82 H O2 Saturation 98 99 96 Oxygen O2 Source Room air PD MEDICAL DECISION MAKING - ED course ED course: 80yF p/w rib pain s/p fall without apparent fracture on CT. patient feeling better s/p toradol. plan to dc home to f/u with pmd. return precautions given. Departure - Departure Disposition: 01 Home, Self Care Clinical Impression: Contusion of chest wall Condition: Good Instructions: ED Contusion Chest Wall Comments: You were seen in the emergency department for evaluation of possible rib fracture. Your CT is not showing any broken bones. You should rest and apply ice for 20 minutes every hour for pain. Take Tylenol as needed. Return to the emergency department if you develop any new or worsening symptoms or have other concerns. Follow-up with your primary doctor in regards to the incidental findings that we discussed. Discharge Date/Time: 11/05/20 12:14
[2020-11-05 12:07] VITALS: BP 135/82
== END 2020-11-05 12:14 | disposition home or self-care (01) ==
LOC: ED 09:32
DX: S20.211A Contusion of right front wall of thorax, initial encounter (principal); M54.9 Dorsalgia, unspecified; W01.0XXA Fall on same level from slipping, tripping and stumbling without subsequent striking against object, initial encounter; Y92.007 Garden or yard of unspecified non-institutional (private) residence as the place of occurrence of the external cause; R91.8 Other nonspecific abnormal finding of lung field; E04.1 Nontoxic single thyroid nodule
CPT/HCPCS: 96372; 99283; 99284

== ENCOUNTER 2020-11-16 10:59 | Outpatient (CLI) | payer MEDICARE, OTHER ==
--- NOTE | 2020-11-16 20:50 | XRAY Report ---
PROCEDURE: Ribs w/PA Chest RT INDICATIONS: RIGHT RIB PAIN TECHNIQUE: 2 views of the right ribs were acquired, along with a single view chest. COMPARISON: Correlation is made with chest CT, 10/26/2020 as well as left rib pain films 08/01/2019 FINDINGS: Clothing artifact can be seen, with buttons. Surgical changes and devices: None. Bones and chest wall: Subacute appearing, mildly displaced rib fractures can be seen involving the r ight lateral sixth through ninth ribs within the region of the soft tissue marker. No dislocations. No suspicious bony lesions. Age-appropriate degenerative changes are seen. Overlying soft tissues a ppear unremarkable. Lungs and pleura: No pleural effusions or pneumothorax. Lungs appear clear. Mediastinum: Mediastinal contours appear normal. Heart size is normal. IMPRESSION: Subacute appearing right lateral sixth through ninth rib fractures. These are better seen on the curr ent study than on the prior recent CT examination. No associated pneumothorax is seen. Reviewed by: Jw Diggs MD on 11/16/2020 7:48 PM DANIEL Approved by: Jw Diggs MD on 11/16/2020 7:48 PM DANIEL Station ID: [id number]
== END 2020-11-16 11:00 | disposition home or self-care (01) ==
LOC: DI.N 10:59
PROVIDERS: ATTEND Physician Assistant Medical
DX: S22.41XA Multiple fractures of ribs, right side, initial encounter for closed fracture (principal)

== ENCOUNTER 2021-01-31 14:30 | Outpatient (CLI) | payer MEDICARE, OTHER | END 2021-01-31 23:59 | disposition home or self-care (01) | LOC: LAB.WCP 14:30 | PROVIDERS: ATTEND Physician Assistant Medical | DX: J06.9 Acute upper respiratory infection, unspecified (principal); Z20.822 Contact with and (suspected) exposure to COVID-19 ==

== ENCOUNTER 2021-01-31 15:07 | Outpatient (CLI) | payer MEDICARE, OTHER ==
--- NOTE | 2021-01-31 17:34 | XRAY Report ---
PROCEDURE: Chest 2 View X-Ray INDICATIONS: REACTIVE AIRWAY DISEASE TECHNIQUE: 2 view(s) of the chest. COMPARISON: 11/16/2020 FINDINGS: Surgical changes and devices: None. Lungs: Scattered subsegmental scarring/atelectasis. No acute consolidation. Pleura: No pleural effusions or pneumothorax. Mediastinum: Mediastinal contours are normal. Heart size is normal. Bones and chest wall: No suspicious bony abnormalities. Soft tissues appear unremarkable. IMPRESSION: No acute disease. Scattered scarring/atelectasis. Reviewed by: Sam Jackson MD on 01/31/2021 5:33 PM PDT Approved by: Sam Jackson MD on 01/31/2021 5:33 PM PDT Station ID: [id number]
== END 2021-01-31 15:08 | disposition home or self-care (01) ==
LOC: DI 15:07
PROVIDERS: ATTEND Physician Assistant Medical
DX: J45.909 Unspecified asthma, uncomplicated (principal)

== ENCOUNTER 2021-03-11 09:23 | Outpatient (CLI) | payer MEDICARE, OTHER ==
--- NOTE | 2021-03-11 12:20 | CT Report ---
PROCEDURE: Sinuses INDICATIONS: CHRONIC PANSINUSITIS TECHNIQUE: Noncontrast 3.0 mm axial images acquired from the frontal sinuses to the mid-sella, with coronal and sagittal reformats. For radiation dose reduction, the following was used: automated exposure control , adjustment of mA and/or kV according to patient size. COMPARISON: None. FINDINGS: Maxillary Sinuses: Mild osseous wall thickening noted with surgical defects in the anterior infe rior maxillary bender, consistent with prior Rosa-Jhony procedure. Large bilateral nasal antral wind ows are present as well. There is mild mucosal thickening which obstructs left ostiomeatal unit. The right egress tract appears clear. No air-fluid levels. Sphenoid Sinuses: The sphenoethmoidal recesses are patent and unobstructed. The sphenoid sinuses are clear. Sphenoid pneumatization pattern is post-sellar, extending beyond the dorsum sella to the dors al cortex of the clivus. No [place] or sphenoethmoidal air cells present. The optic nerve is well cov ered. Frontal Sinuses: The frontal recesses are both patent. The frontal sinuses are clear. Ethmoid Sinuses: The ethmoid air cells are clear without significant mucosal thickening or air-fluid levels. The fovea ethmoidalis and cribriform plate are unremarkable. The lamina papyracea are both structurally intact. Lateral lamella are symmetric. Nasal Cavity and Septum: Nasal turbinates unremarkable without pneumatization. Cartilaginous and os seous components of the nasal septum intact and midline without perforation. Skull Base: The anterior cranial fossa and pituitary sella are unremarkable. No evidence of bony dehi scence. Both osseous orbits and contents are within normal limits. Incidental hyperostosis frontalis interna IMPRESSION: 1. 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 2. Minimal mucosal thickening obstructs the left ostiomeatal unit. No air-fluid levels. Reviewed by: Damaso Lacy MD on 03/11/2021 11:18 AM DANIEL Approved by: Damaso Lacy MD on 03/11/2021 11:18 AM DANIEL Station ID: [id number]
== END 2021-03-11 09:24 | disposition home or self-care (01) ==
LOC: DI 09:23
PROVIDERS: ATTEND Otolaryngology
DX: J32.4 Chronic pansinusitis (principal)

== ENCOUNTER 2021-05-21 08:00 | Outpatient (CLI) | payer MEDICARE, OTHER ==
[2021-05-21 18:33] LABS: BASOPHILS % (AUTO) 0.6 %; EOSINOPHILS # (AUTO) 0.2 10^3/uL (0.0-0.7); EOSINOPHILS % (AUTO) 2.7 %; HGB - HEMOGLOBIN 13.7 g/dL (12.0-16.0); LYMPHOCYTES # (AUTO) 1.1 10^3/uL (1.5-3.5); MEAN CORPUSCULAR HEMOGLOBIN 28.9 pg (27.0-31.0); MEAN CORPUSCULAR HGB CONC 32.6 g/dL (32.0-36.0); MEAN CORPUSCULAR VOLUME 88.6 fL (81.0-99.0); MEAN PLATELET VOLUME 9.2 fL (7.9-10.8); MONOCYTES # (AUTO) 0.5 10^3/uL (0.0-1.0); MONOCYTES % (AUTO) 7.4 %; NEUTROPHILS # (AUTO) 5.2 10^3/uL (1.5-6.6); PLT - PLATELET COUNT 294 10^3/uL (130-450); RED BLOOD COUNT 4.74 10^6/uL (4.20-5.40); RED CELL DISTRIBUTION WIDTH 13.3 % (12.0-15.0); WHITE BLOOD COUNT 7.1 x10^3/uL (4.8-10.8)
== END 2021-05-21 23:59 ==
LOC: LAB.WCP 08:00
PROVIDERS: ATTEND Pediatrics
DX: J45.40 Moderate persistent asthma, uncomplicated (principal)
CPT/HCPCS: 36415; 85025

== ENCOUNTER 2021-05-21 13:46 | Outpatient (CLI) | payer MEDICARE, OTHER ==
--- NOTE | 2021-05-22 13:29 | Mammography Report ---
BILATERAL DIGITAL SCREENING MAMMOGRAM 3D/2D: 05/21/2021 CLINICAL: Routine screening. Comparison is made to exams dated: 05/15/2020 mammogram, 12/02/2018 mammogram, and 08/01/2015 mammogra m - [facility]. There are scattered fibroglandular elements in both breasts. No significant masses, calcifications, or other findings are seen in either breast. There has been no significant interval change. IMPRESSION: NEGATIVE There is no mammographic evidence of malignancy. A 1 year screening mammogram is recommended. This exam was interpreted at Station ID: [id number]. NOTE: For mammograms, a report in lay terms will be sent to the patient. Approximately 15% of breast malignancies will not be visualized mammographically. In the management of a palpable breast mass, a negative mammogram must not discourage biopsy of a clinically suspicious lesion. Electronically Signed By: Timothy Chong M.D. [email or web address]:05/21/2021 14:57:31 ACR BI-RADS Category 1: Negative 3341F PARENCHYMAL PATTERN: (A) - The breast(s) demonstrate(s) scattered fibroglandular densities. BI-RADS CATEGORY: (1) - 1 RECOMMENDATION: (ANNUAL) - Recommend routine annual screening mammography. [id number] 1 year screening LATERALITY: (B)
== END 2021-05-21 13:47 | disposition home or self-care (01) ==
LOC: DI 13:46
DX: Z12.31 Encounter for screening mammogram for malignant neoplasm of breast (principal)

== ENCOUNTER 2022-03-27 17:01 | Outpatient (CLI) | payer MEDICARE, OTHER ==
--- NOTE | 2022-03-28 03:06 | XRAY Report ---
PROCEDURE: SI Joints INDICATIONS: LOW BACK PAIN TECHNIQUE: 3 views of the sacroiliac joints were acquired. COMPARISON: None. FINDINGS: Bones: No bony erosions or ankylosis. No suspicious bony lesions. No fractures. There is diffuse o steopenia. Soft tissues: Overlying bowel gas pattern is normal. No suspicious soft tissue densities. IMPRESSION: 1. No definite evidence of sacroiliitis. Reviewed by: Onur Santos MD on 03/28/2022 3:05 AM PDT Approved by: Onur Santos MD on 03/28/2022 3:05 AM PDT Station ID: [id number]
--- NOTE | 2022-03-28 03:13 | XRAY Report ---
PROCEDURE: Lumbar Spine 2 View INDICATIONS: LOW BACK PAIN TECHNIQUE: 3 views of the lumbar spine were acquired. COMPARISON: None. FINDINGS: Bones: 5 [id number] vertebrae are present. There is a mild leftward curvature of the lumbar spi ne centered at L4. Mild anterolisthesis demonstrated at L4-L5 measuring approximately 0.4 cm but eval uation is limited due to diffuse osteopenia. There is minimal multilevel retrolisthesis at T12-L1, L1 -2, L2-L3, and L3-L4. There is mild endplate scalloping within the inferior endplate of L1 of indeter minate acuity. There is mild multilevel degenerative disc disease throughout the lumbar spine. Modera te facet arthropathy demonstrated within the lower lumbar spine. Soft tissues: Overlying bowel gas pattern is normal. No suspicious soft tissue calcifications. IMPRESSION: 1. Multilevel degenerative changes throughout the lumbar spine including moderate facet arthropathy i nferiorly. 2. Mild anterolisthesis at L4-5 and multilevel minimal retrolisthesis. 3. Mild inferior plate scalloping of the L1 vertebral body of indeterminate acuity. Reviewed by: Onur Santos MD on 03/28/2022 3:12 AM PDT Approved by: Onur Santos MD on 03/28/2022 3:12 AM PDT Station ID: [id number]
== END 2022-03-27 23:59 | disposition home or self-care (01) ==
LOC: DI.N 17:01
PROVIDERS: ATTEND Physician Assistant
DX: M43.16 Spondylolisthesis, lumbar region (principal); M47.816 Spondylosis without myelopathy or radiculopathy, lumbar region

== ENCOUNTER 2022-04-14 10:32 | Outpatient (CLI) | payer MEDICARE, OTHER ==
--- NOTE | 2022-04-14 16:10 | XRAY Report ---
PROCEDURE: Chest 2 View X-Ray INDICATIONS: ASTHMA TECHNIQUE: 2 view(s) of the chest. COMPARISON: Chest radiographs 01/31/2021. CT chest 11/05/2020. FINDINGS: Surgical changes and devices: Curvilinear opacity projects over the right upper lung and upper media stinum. Lungs and pleura: Redemonstrated coarse interstitial markings bilaterally. Patchy consolidative retr ocardiac opacity is present, suspect within the left lower lobe. No pleural effusion or pneumothorax. Mediastinum: Mediastinal and hilar contours are similar to before. Cardiac silhouette is at the uppe r limit of normal in size. Bones and chest wall: No suspicious bony abnormalities. Soft tissues appear unremarkable. IMPRESSION: 1. Patchy left basilar opacity is present that could represent pneumonia and/or aspiration in the jihan ropriate clinical setting. 2. Redemonstrated coarse interstitial markings bilaterally, could be sequela of interstitial disease and/or senescent change. Pulmonary edema or viral/atypical infection can appear similarly. 3. Indeterminate curvilinear opacity projects over the right upper lung and upper mediastinum. This m ay be related to artifact from an object external to the patient however correlation for other etiolo gies such as a vascular catheter may be helpful. Clinical correlation is recommended, repeat exam cou ld be obtained as clinically indicated. Reviewed by: Timothy Rodriguez MD on 04/14/2022 4:09 PM PDT Approved by: Timothy Rodriguez MD on 04/14/2022 4:09 PM PDT Station ID: [id number]
== END 2022-04-14 10:33 | disposition home or self-care (01) ==
LOC: DI 10:32
PROVIDERS: ATTEND Physician Assistant Medical
DX: J45.40 Moderate persistent asthma, uncomplicated (principal)

== ENCOUNTER 2022-04-21 09:30 | Emergency (ER) | payer MEDICARE, OTHER ==
[2022-04-21] MEDS ORDERED: IPRATROPIUM/ALBUTEROL 3 ML NEB INH STA ×2 (09:40→11:01)
--- NOTE | 2022-04-21 09:44 | ED Physician Documentation ---
PD HPI DYSPNEA - Stated complaint Stated Complaint: SOA - Chief complaint Chief Complaint: Resp - History obtained from History obtained from: Patient - History of Present Illness Timing - onset: How many weeks ago (2) Timing - onset during: Rest, Light activity Timing - duration: Weeks (has had increased dyspnea over baseline for couple of weeks, with cough and sputum. Seen in office 5 days ago and had CXR showing pneumonia. Rx with steroids course and doxycycline. Has not noted improvement and feeling worse last night/today.) Timing - details: Gradual onset, Still present Inciting event(s): URI. No: Out of meds Improved by: Inhaler/neb (but not fully). No: Steroids Worsened by: Laying flat, Coughing Associated symptoms: Fever, Cough, Wheezing, Chest pain / discomfort. No: Palpitations, Bilateral edema Similar symptoms before: Diagnosis (COPD and prior pneumonia) Recently seen: Clinic Review of Systems Constitutional: reports: Fever, Myalgias Nose: reports: Congestion Throat: denies: Sore throat Cardiac: reports: Chest pain / pressure (with coughing). denies: Palpitations, Pedal edema, Calf pain Respiratory: reports: Dyspnea, Cough, Wheezing GI: denies: Abdominal Pain, Nausea, Vomiting, Diarrhea Skin: denies: Rash, Lesions Neurologic: denies: Altered mental status, Headache PD PAST MEDICAL HISTORY - Past Medical History Cardiovascular: High cholesterol, Atrial fibrillation Respiratory: Asthma, COPD Neuro: None Endocrine/Autoimmune: None GI: None [employer]: None : None HEENT: None Psych: Depression Musculoskeletal: Osteoarthritis Derm: Rosacea - Past Surgical History Past Surgical History: Yes /[employer]: Hysterectomy Cardiovascular: Other - Present Medications Home Medications: Ambulatory Orders Medication Instructions Recorded Confirmed Albuterol Sulfate [Proair Hfa 1 - 2 puffs IH Q4HR PRN 04/14/18 04/21/22 Inhaler] Cholecalciferol (Vitamin D3) 1,000 unit PO DAILY 04/14/18 04/21/22 [Vitamin D3] FLUoxetine [PROzac] 40 mg PO DAILY 04/14/18 04/21/22 Fluticasone [Flonase] 1 sprays GAEL DAILY PRN 04/14/18 04/21/22 Fluticasone/Salmeterol [Advair 1 puffs IH BID 04/14/18 04/21/22 250-50 Diskus] Glucosamine HCl/Chondroitin Liz 1 each PO DAILY 04/14/18 04/21/22 [Endur-Flex Sr Tablet] Amox/Clav 875/125 [Augmentin] 1 each PO Q12H #10 tablet 04/21/22 Atorvastatin [Lipitor] 10 mg PO HS 04/21/22 04/21/22 Benzonatate [Tessalon] 100 mg PO TID PRN #15 cap 04/21/22 Budesonide/Formoterol Fumarate 2 puffs INH DAILY 04/21/22 04/21/22 [Symbicort 160-4.5 Mcg Inhaler] Doxycycline Hyclate 100 mg PO BID 04/21/22 04/21/22 Ipratropium [Atrovent] 0.5 mg INH Q6H 15 Days #150 ml 04/21/22 Montelukast [Singulair] 10 mg PO DAILY 04/21/22 04/21/22 Tiotropium [place] [Spiriva 2 puffs INH DAILY 04/21/22 04/21/22 Respimat] dexAMETHasone [Decadron] 4 mg PO DAILY #7 tablet 04/21/22 - Allergies Allergies/Adverse Reactions: Allergies Allergy/AdvReac Type Severity Reaction Status Date / Time latex Allergy Unknown Verified 11/05/20 09:36 milk Allergy Unknown Verified 11/05/20 09:36 Sulfa (Sulfonamide Allergy Unknown Verified 11/05/20 09:36 Antibiotics) terfenadine [From [place]] Allergy Unknown Verified 11/05/20 09:36 oatmeal Allergy Respiratory Uncoded 03/10/20 12:43 tannic acid Allergy Respiratory Uncoded 03/10/20 12:43 - Social History Does the pt smoke?: No Smoking Status: Never smoker Does the pt drink ETOH?: No Does the pt have substance abuse?: No - Immunizations Immunizations are current?: Yes - POLST Patient has POLST: No PD ED PE NORMAL - Vitals Vital signs reviewed: Yes - General General: Alert and oriented X 3, No acute distress, Well developed/nourished - HEENT HEENT: Pharynx benign - Neck Neck: Supple, no meningeal sign, No adenopathy - Cardiac Cardiac: RRR, No murmur - Respiratory Respiratory: No: Clear bilaterally (wheezing diffusely. Some coarse sounds right base more than left. No fine crackles. ) - Abdomen Abdomen: Normal bowel sounds, Soft, Non tender - Derm Derm: Normal color, Warm and dry, No rash - Extremities Extremities: Normal ROM s pain, No edema, No calf tenderness / cord - Neuro Neuro: Alert and oriented X 3, No motor deficit, Normal speech Results - Vitals Vitals: Vital Signs - 24 hr 04/21/22 04/21/22 04/21/22 09:38 10:05 10:10 Temperature 37.5 C Heart Rate 98 88 89 Respiratory 30 H 20 16 Rate Blood Pressure 146/77 H 131/82 H O2 Saturation 92 100 If not protocol 88 : Oxygen Flow, liters/minute 04/21/22 04/21/22 04/21/22 10:40 11:00 11:11 Temperature Heart Rate 88 95 94 Respiratory 20 16 25 H Rate Blood Pressure 150/93 H 138/110 H O2 Saturation 96 97 If not protocol : Oxygen Flow, liters/minute 04/21/22 04/21/22 11:30 12:07 Temperature 36.8 C Heart Rate 94 98 Respiratory 20 20 Rate Blood Pressure 132/96 H 138/77 H O2 Saturation 93 98 If not protocol : Oxygen Flow, liters/minute Oxygen O2 Source Room air - EKG (time done) 09:41 Rate: Rate (enter#) (100) Rhythm: Sinus tachycardia [place]: Normal Intervals: Normal CA QRS: Normal Ischemia: Normal ST segments. No: ST elevation c/w ischemia, ST depression, T wave inversion - Labs Labs: Laboratory Tests 04/21/22 04/21/22 04/21/22 09:51 09:51 09:51 WBC 11.0 H RBC 4.69 Hgb 13.6 Hct 41.7 MCV 88.9 MCH 29.0 MCHC 32.6 RDW 12.7 Plt Count 312 MPV 8.7 Neut # (Auto) 8.6 H Lymph # (Auto) 0.9 L [place] # (Auto) 0.6 Eos # (Auto) 0.9 H Baso # (Auto) 0.1 Absolute Nucleated RBC 0.00 Nucleated RBC % 0.0 Sodium 132 L Potassium 3.6 Chloride 97 L Carbon Dioxide 25 Anion Gap 10.0 BUN 9 Creatinine 0.5 Estimated GFR (MDRD) 118 Glucose 100 Calcium 9.2 Magnesium 2.0 Total Bilirubin 1.7 H AST 26 ALT 23 Alkaline Phosphatase 132 H B-Natriuretic Peptide 17 Total Protein 7.2 Albumin 3.9 Globulin 3.3 Albumin/Globulin Ratio 1.2 Lipase 33 Nasal Adenovirus (PCR) Nasal B. parapertussis DNA (PCR) Nasal Coronavir 229E PCR Nasal Coronavir HKU1 PCR Nasal Coronavir NL63 PCR Nasal Coronavir OC43 PCR Nasal Enterovir/Rhinovir PCR Nasal Influenza B PCR Nasal Influenza A PCR Nasal Parainfluen 1 PCR Nasal Parainfluen 2 PCR Nasal Parainfluen 3 PCR Nasal Parainfluen 4 PCR Nasal RSV (PCR) Nasal B.pertussis DNA PCR Nasal C.pneumoniae (PCR) Gael Human Metapneumo PCR Nasal M.pneumoniae (PCR) Nasal SARS-CoV-2 (PCR) 04/21/22 10:13 WBC RBC Hgb Hct MCV MCH MCHC RDW Plt Count MPV Neut # (Auto) Lymph # (Auto) [place] # (Auto) Eos # (Auto) Baso # (Auto) Absolute Nucleated RBC Nucleated RBC % Sodium Potassium Chloride Carbon Dioxide Anion Gap BUN Creatinine Estimated GFR (MDRD) Glucose Calcium Magnesium Total Bilirubin AST ALT Alkaline Phosphatase B-Natriuretic Peptide Total Protein Albumin Globulin Albumin/Globulin Ratio Lipase Nasal Adenovirus (PCR) NOT DETECTED Nasal B. parapertussis DNA (PCR) NOT DETECTED Nasal Coronavir 229E PCR NOT DETECTED Nasal Coronavir HKU1 PCR NOT DETECTED Nasal Coronavir NL63 PCR NOT DETECTED Nasal Coronavir OC43 PCR NOT DETECTED Nasal Enterovir/Rhinovir PCR NOT DETECTED Nasal Influenza B PCR NOT DETECTED Nasal Influenza A PCR NOT DETECTED Nasal Parainfluen 1 PCR NOT DETECTED Nasal Parainfluen 2 PCR NOT DETECTED Nasal Parainfluen 3 PCR NOT DETECTED Nasal Parainfluen 4 PCR NOT DETECTED Nasal RSV (PCR) NOT DETECTED Nasal B.pertussis DNA PCR NOT DETECTED Nasal C.pneumoniae (PCR) NOT DETECTED Gael Human Metapneumo PCR NOT DETECTED Nasal M.pneumoniae (PCR) NOT DETECTED Nasal SARS-CoV-2 (PCR) NOT DETECTED - Rads (name of study) chest xray Radiology: Prelim report reviewed (improved infiltrate on left, increased one on right. ), See rad report PD MEDICAL DECISION MAKING - ED course Complexity details: reviewed old records, reviewed results (CXR is similar to recent. Has not improved with doxy/pred/MDI. can change/add Augmentin, redose steroids, add tessalon. Continue albuterol and atrovent. ), re-evaluated patient (improved with neb and tessalon. ), considered differential, d/w patient Departure - Departure Disposition: 01 Home, Self Care Clinical Impression: Pneumonia, COPD exacerbation, Dyspnea Condition: Stable Record reviewed to determine appropriate education?: Yes Instructions: ED Pneumonia Adult Prescriptions: Ipratropium [Atrovent] 0.5 mg INH Q6H 15 Days #150 ml Amox/Clav 875/125 [Augmentin] 1 each PO Q12H #10 tablet dexAMETHasone [Decadron] 4 mg PO DAILY #7 tablet Benzonatate [Tessalon] 100 mg PO TID PRN #15 cap PRN Reason: Cough Comments: Your chest x-ray looks similar or slightly better than the one from last week. Continue the doxycycline antibiotic you are prescribed. I would add Augmentin to it twice daily for 5 days. We can add ipratropium for your nebulizer to combine with your albuterol. Use them 4 times daily and then extra times if needed. I would restart a course of steroids and I prescribed dexamethasone daily for 7 more days. You can use benzonatate if needed for cough. Continue other usual medicines. Recheck if not improving well over the next few days. Return if worse. I transmitted prescriptions to the [facility] pharmacy. Discharge Date/Time: 04/21/22 12:11
[2022-04-21] MEDS ORDERED: BENZONATATE 100 MG CAPSULE PO STA (09:56)
[2022-04-21] MEDS ORDERED: DEXAMETHASONE 10 MG/ML VIAL IVP STA (09:56)
[2022-04-21 10:09] LABS: BASOPHILS # (AUTO) 0.1 10^3/uL (0.0-0.1); BASOPHILS % (AUTO) 0.5 %; EOSINOPHILS # (AUTO) 0.9 10^3/uL (0.0-0.7); EOSINOPHILS % (AUTO) 7.8 %; HCT - HEMATOCRIT 41.7 % (37.0-47.0); HGB - HEMOGLOBIN 13.6 g/dL (12.0-16.0); LYMPHOCYTES # (AUTO) 0.9 10^3/uL (1.5-3.5); LYMPHOCYTES % (AUTO) 7.8 %; MEAN CORPUSCULAR HGB CONC 32.6 g/dL (32.0-36.0); MEAN CORPUSCULAR VOLUME 88.9 fL (81.0-99.0); MEAN PLATELET VOLUME 8.7 fL (7.9-10.8); MONOCYTES # (AUTO) 0.6 10^3/uL (0.0-1.0); MONOCYTES % (AUTO) 5.1 %; NEUTROPHILS # (AUTO) 8.6 10^3/uL (1.5-6.6); NEUTROPHILS % (AUTO) 78.2 %; PLT - PLATELET COUNT 312 10^3/uL (130-450); RED BLOOD COUNT 4.69 10^6/uL (4.20-5.40); RED CELL DISTRIBUTION WIDTH 12.7 % (12.0-15.0)
[2022-04-21 10:18] LABS: ALBUMIN 3.9 g/dL (3.2-5.5); ALBUMIN/GLOBULIN RATIO 1.2 (1.0-2.2); BILIRUBIN,TOTAL 1.7 mg/dL (0.2-1.0); CALCIUM 9.2 mg/dL (8.5-10.3); CREATININE 0.5 mg/dL (0.4-1.0); POTASSIUM 3.6 mmol/L (3.5-5.0); TOTAL PROTEIN 7.2 g/dL (6.7-8.2)
--- NOTE | 2022-04-21 10:34 | XRAY Report ---
PROCEDURE: Chest 1 View X-Ray INDICATIONS: cough, dyspnea; recent pneumonia TECHNIQUE: One view of the chest was acquired. COMPARISON: Chest x-ray 04/14/2022 FINDINGS: Surgical changes and devices: None. Lungs and pleura: Previous left basilar opacity is less prominent. There is slight increased interst itial opacity within the right base as well as overall appearance of increased interstitial prominenc e. Mediastinum: Mediastinal contours appear normal. Heart size is enlarged. Bones and chest wall: No suspicious bony lesions. Overlying soft tissues appear unremarkable. IMPRESSION: Improved appearance of previous left basilar opacity. Slight increased opacity is noted within the ri ght base which could represent focal edema, developing airspace disease such as pneumonia/atelectasis . Reviewed by: Jennifer Wetzel MD on 04/21/2022 10:33 AM PDT Approved by: Jennifer Wetzel MD on 04/21/2022 10:33 AM PDT Station ID: [id number]
[2022-04-21] MEDS ORDERED: diphenhydrAMINE ELIXIR 25 MG/10 ML UDC PO STA (11:01)
[2022-04-21] MEDS ORDERED: AMOX/CLAV 875 MG/125 MG TABLET PO STA (11:03)
[2022-04-21 11:15] LABS: B. PARAPERTUSSIS- RESP PCR PAN NOT DETECTED; B. PERTUSSIS- RESP PCR PANEL NOT DETECTED; C. PNEUMONIAE- RESP PCR PANEL NOT DETECTED; CORONAVIRUS 229E-RESP PCR NOT DETECTED; CORONAVIRUS HKU1-RESP PCR NOT DETECTED; CORONAVIRUS NL63-RESP PCR NOT DETECTED; CORONAVIRUS OC43-RESP PCR NOT DETECTED; HUMAN METAPNEUMOVIRUS NOT DETECTED; INFLUENZA A- RESP PCR PANEL NOT DETECTED; INFLUENZA B - RESP PCR PANEL NOT DETECTED; PARAINFLUENZA VIRUS 1 NOT DETECTED; PARAINFLUENZA VIRUS 2 NOT DETECTED; PARAINFLUENZA VIRUS 3 NOT DETECTED; PARAINFLUENZA VIRUS 4 NOT DETECTED; RHINOVIRUS/ENTEROVIRUS NOT DETECTED; RSV- RESP PCR PANEL NOT DETECTED; SARS-CoV-2 -RESP PCR PANEL NOT DETECTED
[2022-04-21 11:16] LABS: M. PNEUMONIAE- RESP PCR PANEL NOT DETECTED
[2022-04-21 12:09] VITALS: BP 138/77
== END 2022-04-21 12:11 | disposition home or self-care (01) ==
LOC: ED 09:30
DX: J44.1 Chronic obstructive pulmonary disease with (acute) exacerbation (principal); J18.9 Pneumonia, unspecified organism; I48.91 Unspecified atrial fibrillation; Z20.822 Contact with and (suspected) exposure to COVID-19
CPT/HCPCS: 36415; 71045; 80053; 83690; 83735; 83880; 85025; 87633; 93005; 94640; 96374; 99283; 99284; A9270

== ENCOUNTER 2022-05-11 16:32 | Inpatient (IN) | payer MEDICARE, OTHER ==
--- OUTSIDE RECORDS SUMMARY | 2022-05-11 16:55 | EXTERNAL MEDICAL SUMMARY RPT | Continuity of Care Document ---
:1940 Author Organization [facility] Address [address] [place], [place] [id number] Phone Allergies No information. Encounters No information. Functional Status No information. Immunizations No information. Medications No information. Problems No information. Procedures No information. Results/Labs test date author facility value unit interpret ation Result panel 1 (unknown) (no (unknown) (unknown) (no value) (units (unk nown) date) unknown) (unknown) (no (unknown) (unknown) 1. Degenerative (units (unknown) date) changes noted unknown) throughout the patient's lumbar spine as (unknown) (no (unknown) (unknown) 04/29/22 (units (unkno wn) date) unknown) (unknown) (no (unknown) (unknown) [address] [place] [address] (units (unknown) date) unknown) (unknown) (no (unknown) (unknown) 2. Acute (units (unkno wn) date) compression unknown) fracture involving the superior endplate of L4 with marrow (unknown) (no (unknown) (unknown) [id number] (units (unkno wn) date) unknown) (unknown) (no (unknown) (unknown) 3. Old mild to (units (unknown) date) moderate wedge unknown) compression fracture L1. (unknown) (no (unknown) (unknown) Accession (units (unkn own) date) Number: unknown) [id number] (unknown) (no (unknown) (unknown) Age/Sex: 82 / F (units (unknown) date) Date of Service: unknown) (unknown) (no (unknown) (unknown) Alignment and (units ( unknown) date) Curvature: There unknown) is normal bony alignment. (unknown) (no (unknown) (unknown) An old mild to (units (unknown) date) moderate wedge unknown) compression fractures noted involving L1. (unknown) (no (unknown) (unknown) LISETTE Cole (units ( unknown) date) [id number] unknown) (unknown) (no (unknown) (unknown) Approved by: (units (u nknown) date) León Ball unknown) Corrina Zapata on 04/29/2022 at 14:39 (unknown) (no (unknown) (unknown) Bone Marrow: (units (u nknown) date) There is a mild unknown) to moderate acute compression fracture present (unknown) (no (unknown) (unknown) COMPARISON: (units (un known) date) None. unknown) (unknown) (no (unknown) (unknown) : 1940 (units (unknown) date) Acct:[id number] unknown) (unknown) (no (unknown) (unknown) Dictated by: (units (u nknown) date) León Ball unknown) Corrina Zapata on 04/29/2022 at 14:31 (unknown) (no (unknown) (unknown) FINDINGS: (units (unkn own) date) unknown) (unknown) (no (unknown) (unknown) IMPRESSION: (units (un known) date) unknown) (unknown) (no (unknown) (unknown) INDICATIONS: (units (u nknown) date) Wedge compression unknown) fracture of third lumbar vertebra, initial (unknown) (no (unknown) (unknown) Image quality: (units (unknown) date) Excellent. unknown) (unknown) (no (unknown) (unknown) [facility] (units (unknown) date) unknown) (unknown) (no (unknown) (unknown) L1-L2: There is (units (unknown) date) a small to unknown) moderate-sized broad-based disc protrusion present (unknown) (no (unknown) (unknown) L2-L3: There is (units (unknown) date) a small to unknown) moderate-sized broad-based disc protrusion present (unknown) (no (unknown) (unknown) L3-L4: There is (units (unknown) date) a mild diffuse unknown) disc bulge present causing moderate bilateral (unknown) (no (unknown) (unknown) L4-L5: There is (units (unknown) date) a mild diffuse unknown) disc bulge is present causing moderate (unknown) (no (unknown) (unknown) L5-S1: There is (units (unknown) date) a mild diffuse unknown) disc bulge is present causing mild right and (unknown) (no (unknown) (unknown) Loc: MRI (units (unkno wn) date) unknown) (unknown) (no (unknown) (unknown) Magnetic (units (unkno wn) date) Resonance Report unknown) (unknown) (no (unknown) (unknown) Marrow signal (units ( unknown) date) otherwise appears unknown) within normal limits. (unknown) (no (unknown) (unknown) Noncontrast (units (un known) date) sagittal T1 spin unknown) echo and T2 fast echo, sagittal STIR, and T2 fast (unknown) (no (unknown) (unknown) Ordering (units (unkno wn) date) Provider: unknown) Vernon Flores MD (unknown) (no (unknown) (unknown) PROCEDURE: MR (units ( unknown) date) LUMBAR SPINE WO unknown) CON (unknown) (no (unknown) (unknown) Paraspinous Soft (units (unknown) date) Tissues: No unknown) paravertebral masses. (unknown) (no (unknown) (unknown) Patient: (units (unkno wn) date) Isis Combs unknown) MR#: [id number] (unknown) (no (unknown) (unknown) Procedure: MR (units ( unknown) date) lumbar spine wo unknown) con (unknown) (no (unknown) (unknown) Signed (units (unkno wn) date) unknown) (unknown) (no (unknown) (unknown) Spinal Cord: (units (u nknown) date) Conus medullaris unknown) terminates at the L1 level. Visualized cord (unknown) (no (unknown) (unknown) T12-L1: There is (units (unknown) date) a small unknown) broad-based disc protrusion present causing moderate (unknown) (no (unknown) (unknown) TECHNIQUE: (units (unk nown) date) unknown) (unknown) (no (unknown) (unknown) a level by level (units (unknown) date) basis from T12-L1 unknown) through L5-S1. (unknown) (no (unknown) (unknown) approximately (units ( unknown) date) loss of 25% unknown) vertebral body height at the superior endplate. (unknown) (no (unknown) (unknown) bilateral neural (units (unknown) date) foraminal unknown) stenosis. No significant central canal stenosis is (unknown) (no (unknown) (unknown) bilateral neural (units (unknown) date) unknown) (unknown) (no (unknown) (unknown) canal (units (unkno wn) date) unknown) (unknown) (no (unknown) (unknown) causing (units (unkno wn) date) unknown) (unknown) (no (unknown) (unknown) demonstrates (units (u nknown) date) unknown) (unknown) (no (unknown) (unknown) described above (units (unknown) date) on unknown) (unknown) (no (unknown) (unknown) edema in (units (unkno wn) date) unknown) (unknown) (no (unknown) (unknown) foraminal (units (unkn own) date) stenosis and mild unknown) central canal stenosis. (unknown) (no (unknown) (unknown) foraminal (units (unkn own) date) stenosis and unknown) moderate central canal stenosis. (unknown) (no (unknown) (unknown) height and (units (unk nown) date) unknown) (unknown) (no (unknown) (unknown) involving (units (unkn own) date) unknown) (unknown) (no (unknown) (unknown) marrow edema (units (u nknown) date) consistent with unknown) the acute compression fracture. (unknown) (no (unknown) (unknown) may be (units (unkno wn) date) performed. unknown) (unknown) (no (unknown) (unknown) moderate to (units (un known) date) unknown) (unknown) (no (unknown) (unknown) neural (units (unkno wn) date) unknown) (unknown) (no (unknown) (unknown) normal signal (units ( unknown) date) and size. unknown) (unknown) (no (unknown) (unknown) seen. (units (unkno wn) date) unknown) (unknown) (no (unknown) (unknown) severe bilateral (units (unknown) date) neural foraminal unknown) stenosis and [id number] central canal (unknown) (no (unknown) (unknown) severe (units (unkno wn) date) left-sided neural unknown) foraminal stenosis. No central canal stenosis. (unknown) (no (unknown) (unknown) some moderate (units ( unknown) date) bilateral neural unknown) foraminal stenosis and [id number] central (unknown) (no (unknown) (unknown) spin echo (units (unkn own) date) unknown) (unknown) (no (unknown) (unknown) stenosis. (units (unkn own) date) unknown) (unknown) (no (unknown) (unknown) the superior (units (u nknown) date) endplate of L4 unknown) with loss of approximately 25% of vertebral body (unknown) (no (unknown) (unknown) through the (units (un known) date) lumbar spine. In unknown) cases with scoliosis, additional coronal T2 fast (unknown) (no (unknown) (unknown) to severe (units (unkn own) date) unknown) Social History No information. Vital Signs No information.
--- NOTE | 2022-05-11 17:30 | XRAY Report ---
PROCEDURE: Chest 2 View X-Ray INDICATIONS: cough TECHNIQUE: 2 views of the chest were acquired. COMPARISON: FINDINGS: Surgical changes and devices: None. Lungs and pleura: No pleural effusions or pneumothorax. Lungs are clear. Increased interstitial ma rkings bilaterally which appear chronic. Mediastinum: Mediastinal contours are normal. Heart size is normal. The aorta is tortuous. Bones and chest wall: No suspicious bony abnormalities. Soft tissues appear unremarkable. IMPRESSION: No significant interval change. There are prominent interstitial markings which appear ch ronic. Reviewed by: Sam Thornton on 05/11/2022 5:28 PM [facility] Approved by: Sam Thornton on 05/11/2022 5:28 PM [facility] Station ID: [id number]
[2022-05-11] MEDS ORDERED: IPRATROPIUM/ALBUTEROL 3 ML NEB INH STA ×3 (18:55→23:27)
[2022-05-11 19:08] LABS: BASOPHILS % (AUTO) 0.3 %; EOSINOPHILS % (AUTO) 3.1 %; LYMPHOCYTES % (AUTO) 2.6 %; MEAN CORPUSCULAR HEMOGLOBIN 29.3 pg (27.0-31.0); MEAN CORPUSCULAR HGB CONC 34.2 g/dL (32.0-36.0); MEAN CORPUSCULAR VOLUME 85.8 fL (81.0-99.0); MEAN PLATELET VOLUME 8.5 fL (7.9-10.8); MONOCYTES % (AUTO) 3.1 %; NEUTROPHILS % (AUTO) 90.2 %; PLT - PLATELET COUNT 316 10^3/uL (130-450); RED BLOOD COUNT 4.43 10^6/uL (4.20-5.40); RED CELL DISTRIBUTION WIDTH 12.4 % (12.0-15.0); WHITE BLOOD COUNT 20.2 x10^3/uL (4.8-10.8)
[2022-05-11 19:09] LABS: ABNORMAL LYMPHS % (MANUAL) 0 %; BAND NEUTROPHILS % (MANUAL) 0 %
[2022-05-11 19:20] LABS: ALBUMIN 3.2 g/dL (3.2-5.5); ALBUMIN/GLOBULIN RATIO 0.9 (1.0-2.2); BILIRUBIN,TOTAL 1.3 mg/dL (0.2-1.0); CALCIUM 8.8 mg/dL (8.5-10.3); CREATININE 0.5 mg/dL (0.4-1.0); POTASSIUM 3.4 mmol/L (3.5-5.0); TOTAL PROTEIN 6.9 g/dL (6.7-8.2)
[2022-05-11 19:32] LABS: DIFFERENTIAL COMMENT MANUAL DIFFERENTIAL; EOSINOPHILS # (MANUAL) 0.8 10^3/uL (0-0.7); LYMPHOCYTES # (MANUAL) 0.8 10^3/uL (1.5-3.5); LYMPHOCYTES % (MANUAL) 4 %; MONOCYTES # (MANUAL) 0.6 10^3/uL (0.0-1.0); PLATELET ESTIMATE, MANUAL NORMAL (130-450,000) (NORMAL); PLATELET MORPHOLOGY NORMAL APPEARANCE (NORMAL); RBC MORPHOLOGY (MULTIPLE) NORMAL APPEARANCE (NORMAL); WBC MORPHOLOGY (MULTIPLE) 1+ TOXIC GRANULATION (NORMAL)
[2022-05-11] MEDS ORDERED: predniSONE 20 MG TABLET PO STA (20:19)
[2022-05-11] MEDS ORDERED: ALBUTEROL NEB 2.5 MG/3 ML INH STA (20:47)
[2022-05-11] MEDS ORDERED: SODIUM CHLORIDE 0.9% 1,000 ML IV STA (20:49)
[2022-05-11] MEDS ORDERED: BENZONATATE 100 MG CAPSULE PO STA (20:49)
[2022-05-11 21:57] LABS: B. PARAPERTUSSIS- RESP PCR PAN NOT DETECTED; B. PERTUSSIS- RESP PCR PANEL NOT DETECTED; C. PNEUMONIAE- RESP PCR PANEL NOT DETECTED; CORONAVIRUS 229E-RESP PCR NOT DETECTED; CORONAVIRUS HKU1-RESP PCR NOT DETECTED; CORONAVIRUS NL63-RESP PCR NOT DETECTED; CORONAVIRUS OC43-RESP PCR NOT DETECTED; HUMAN METAPNEUMOVIRUS NOT DETECTED; INFLUENZA A- RESP PCR PANEL NOT DETECTED; INFLUENZA B - RESP PCR PANEL NOT DETECTED; M. PNEUMONIAE- RESP PCR PANEL NOT DETECTED; PARAINFLUENZA VIRUS 1 NOT DETECTED; PARAINFLUENZA VIRUS 2 NOT DETECTED; PARAINFLUENZA VIRUS 3 NOT DETECTED; PARAINFLUENZA VIRUS 4 NOT DETECTED; RHINOVIRUS/ENTEROVIRUS NOT DETECTED; RSV- RESP PCR PANEL NOT DETECTED; SARS-CoV-2 -RESP PCR PANEL NOT DETECTED
[2022-05-11] MEDS ORDERED: cefTRIAXone 1 GM VIAL IVP STA (22:20)
--- NOTE | 2022-05-11 22:34 | ED Physician Documentation ---
History of Present Illness - Stated complaint Stated Complaint: SOA,SPITTING UP - Chief complaint Chief Complaint: Resp - History obtained from History obtained from: Patient, Family - History of Present Illness Timing: How many days ago (3-4) Pain level max: 0 Pain level now: 0 - Additonal information Additional information: Patient is an 82-year-old female who is brought in by a friend gio for continued difficulty breathing. She has a history of COPD and has been having increasing difficulty breathing over the past 3 to 4 days. She has had cough, congestion. Recent diagnosis of pneumonia. She is not currently on antibiotics or steroids. She does not use home oxygen. She has been using her inhaler and nebulizer without relief. Review of Systems Ten Systems: 10 systems reviewed and negative Constitutional: denies: Fever, Chills Nose: reports: Rhinorrhea / runny nose, Congestion Cardiac: denies: Chest pain / pressure Respiratory: reports: Dyspnea, Cough, Wheezing GI: denies: Abdominal Pain, Nausea, Vomiting, Diarrhea Musculoskeletal: denies: Neck pain, Back pain Neurologic: denies: Headache PD PAST MEDICAL HISTORY - Past Medical History Past Medical History: Yes Cardiovascular: High cholesterol, Atrial fibrillation Respiratory: Asthma, COPD Neuro: None Endocrine/Autoimmune: None GI: None GEOPHYSICS SCIENTIST: None : None HEENT: None Psych: Depression Musculoskeletal: Osteoarthritis Derm: Rosacea - Past Surgical History Past Surgical History: Yes /GEOPHYSICS SCIENTIST: Hysterectomy Cardiovascular: Other - Present Medications Home Medications: Ambulatory Orders Medication Instructions Recorded Confirmed Albuterol Sulfate [Proair Hfa 1 - 2 puffs IH Q4HR PRN 04/14/18 04/21/22 Inhaler] Cholecalciferol (Vitamin D3) 1,000 unit PO DAILY 04/14/18 04/21/22 [Vitamin D3] FLUoxetine [PROzac] 40 mg PO DAILY 04/14/18 04/21/22 Fluticasone [Flonase] 1 sprays GAEL DAILY PRN 04/14/18 04/21/22 Fluticasone/Salmeterol [Advair 1 puffs IH BID 04/14/18 04/21/22 250-50 Diskus] Glucosamine HCl/Chondroitin Liz 1 each PO DAILY 04/14/18 04/21/22 [Endur-Flex Sr Tablet] Amox/Clav 875/125 [Augmentin] 1 each PO Q12H #10 tablet 04/21/22 Atorvastatin [Lipitor] 10 mg PO HS 04/21/22 04/21/22 Benzonatate [Tessalon] 100 mg PO TID PRN #15 cap 04/21/22 Budesonide/Formoterol Fumarate 2 puffs INH DAILY 04/21/22 04/21/22 [Symbicort 160-4.5 Mcg Inhaler] Doxycycline Hyclate 100 mg PO BID 04/21/22 04/21/22 Ipratropium [Atrovent] 0.5 mg INH Q6H 15 Days #150 ml 04/21/22 Montelukast [Singulair] 10 mg PO DAILY 04/21/22 04/21/22 Tiotropium [place] [Spiriva 2 puffs INH DAILY 04/21/22 04/21/22 Respimat] dexAMETHasone [Decadron] 4 mg PO DAILY #7 tablet 04/21/22 - Allergies Allergies/Adverse Reactions: Allergies Allergy/AdvReac Type Severity Reaction Status Date / Time latex Allergy Unknown Verified 11/05/20 09:36 milk Allergy Unknown Verified 11/05/20 09:36 Sulfa (Sulfonamide Allergy Unknown Verified 11/05/20 09:36 Antibiotics) terfenadine [From Seldane] Allergy Unknown Verified 11/05/20 09:36 oatmeal Allergy Respiratory Uncoded 03/10/20 12:43 tannic acid Allergy Respiratory Uncoded 03/10/20 12:43 - Social History Does the pt smoke?: No Smoking Status: Never smoker Does the pt drink ETOH?: No Does the pt have substance abuse?: No - Immunizations Immunizations are current?: Yes - POLST Patient has POLST: No PD ED PE NORMAL - Vitals Vital signs reviewed: Yes - General General: Alert and oriented X 3, Well developed/nourished, Other (Mild respiratory distress) - HEENT HEENT: PERRL, Moist mucous membranes - Neck Neck: Supple, no meningeal sign - Cardiac Cardiac: Other (Tachycardic) - Respiratory Respiratory: Other (Diffuse wheezing bilaterally, Mild respiratory distress) - Abdomen Abdomen: Soft, Non tender, Non distended - Derm Derm: Warm and dry - Extremities Extremities: No edema, No calf tenderness / cord - Neuro Neuro: Alert and oriented X 3 - Psych Psych: Normal mood, Normal affect Results - Vitals Vitals: Vital Signs - 24 hr 05/11/22 05/11/22 05/11/22 16:43 18:40 18:45 Temperature 36.8 C Heart Rate 108 H 107 H Respiratory 18 28 H Rate Blood Pressure 126/70 144/97 H O2 Saturation 99 88 L 93 If not protocol 2 : Oxygen Flow, liters/minute 05/11/22 05/11/22 05/11/22 19:30 19:40 20:00 Temperature Heart Rate 94 94 100 Respiratory 20 20 20 Rate Blood Pressure 145/89 H O2 Saturation 94 If not protocol 2 : Oxygen Flow, liters/minute 05/11/22 05/11/22 05/11/22 20:55 21:38 22:05 Temperature Heart Rate 107 H 117 H Respiratory 24 22 Rate Blood Pressure 105/76 O2 Saturation 89 L If not protocol 2 : Oxygen Flow, liters/minute 05/11/22 05/11/22 05/11/22 22:06 22:15 22:29 Temperature Heart Rate 115 H 108 H 121 H Respiratory 18 19 24 Rate Blood Pressure O2 Saturation 92 93 86 L If not protocol 2 : Oxygen Flow, liters/minute 05/11/22 05/11/22 05/11/22 22:31 22:32 23:03 Temperature Heart Rate 116 H Respiratory Rate Blood Pressure O2 Saturation 93 92 If not protocol 2 2 2 : Oxygen Flow, liters/minute Oxygen O2 Source Nasal cannula Oxygen Flow Rate 2 - Labs Labs: Laboratory Tests 05/11/22 05/11/22 05/11/22 19:01 19:01 20:56 WBC 20.2 H RBC 4.43 Hgb 13.0 Hct 38.0 MCV 85.8 MCH 29.3 MCHC 34.2 RDW 12.4 Plt Count 316 MPV 8.5 Neut # (Auto) Not Reportable Lymph # (Auto) Not Reportable [place] # (Auto) Not Reportable Eos # (Auto) Not Reportable Baso # (Auto) Not Reportable Absolute Nucleated RBC Not Reportable Total Counted 100 Band Neuts % (Manual) 0 Abnorm Lymph % (Manual) 0 Nucleated RBC % Not Reportable Neutrophils # (Manual) 18.0 H Lymphocytes # (Manual) 0.8 L Monocytes # (Manual) 0.6 Eosinophils # (Manual) 0.8 H Basophils # (Manual) 0.0 Differential Comment MANUAL DIFFERENTIAL WBC Morphology 1+ TOXIC GRANULATION Platelet Estimate NORMAL (130-450,000) Platelet Morphology NORMAL APPEARANCE RBC Morph Micro Appear NORMAL APPEARANCE Sodium 129 L Potassium 3.4 L Chloride 95 L Carbon Dioxide 22 Anion Gap 12.0 BUN 11 Creatinine 0.5 Estimated GFR (MDRD) 118 Glucose 139 H Lactic Acid Calcium 8.8 Total Bilirubin 1.3 H AST 35 ALT 25 Alkaline Phosphatase 139 H Total Protein 6.9 Albumin 3.2 Globulin 3.7 Albumin/Globulin Ratio 0.9 L Nasal Adenovirus (PCR) NOT DETECTED Nasal B. parapertussis DNA (PCR) NOT DETECTED Nasal Coronavir 229E PCR NOT DETECTED Nasal Coronavir HKU1 PCR NOT DETECTED Nasal Coronavir NL63 PCR NOT DETECTED Nasal Coronavir OC43 PCR NOT DETECTED Nasal Enterovir/Rhinovir PCR NOT DETECTED Nasal Influenza B PCR NOT DETECTED Nasal Influenza A PCR NOT DETECTED Nasal Parainfluen 1 PCR NOT DETECTED Nasal Parainfluen 2 PCR NOT DETECTED Nasal Parainfluen 3 PCR NOT DETECTED Nasal Parainfluen 4 PCR NOT DETECTED Nasal RSV (PCR) NOT DETECTED Nasal B.pertussis DNA PCR NOT DETECTED Nasal C.pneumoniae (PCR) NOT DETECTED Gael Human Metapneumo PCR NOT DETECTED Nasal M.pneumoniae (PCR) NOT DETECTED Nasal SARS-CoV-2 (PCR) NOT DETECTED 05/11/22 21:33 WBC RBC Hgb Hct MCV MCH MCHC RDW Plt Count MPV Neut # (Auto) Lymph # (Auto) [place] # (Auto) Eos # (Auto) Baso # (Auto) Absolute Nucleated RBC Total Counted Band Neuts % (Manual) Abnorm Lymph % (Manual) Nucleated RBC % Neutrophils # (Manual) Lymphocytes # (Manual) Monocytes # (Manual) Eosinophils # (Manual) Basophils # (Manual) Differential Comment WBC Morphology Platelet Estimate Platelet Morphology RBC Morph Micro Appear Sodium Potassium Chloride Carbon Dioxide Anion Gap BUN Creatinine Estimated GFR (MDRD) Glucose Lactic Acid 1.0 Calcium Total Bilirubin AST ALT Alkaline Phosphatase Total Protein Albumin Globulin Albumin/Globulin Ratio Nasal Adenovirus (PCR) Nasal B. parapertussis DNA (PCR) Nasal Coronavir 229E PCR Nasal Coronavir HKU1 PCR Nasal Coronavir NL63 PCR Nasal Coronavir OC43 PCR Nasal Enterovir/Rhinovir PCR Nasal Influenza B PCR Nasal Influenza A PCR Nasal Parainfluen 1 PCR Nasal Parainfluen 2 PCR Nasal Parainfluen 3 PCR Nasal Parainfluen 4 PCR Nasal RSV (PCR) Nasal B.pertussis DNA PCR Nasal C.pneumoniae (PCR) Gael Human Metapneumo PCR Nasal M.pneumoniae (PCR) Nasal SARS-CoV-2 (PCR) - Rads (name of study) Chest x-ray Radiology: Final report received, EMP read contemporaneously, See rad report PD MEDICAL DECISION MAKING - ED course Complexity details: reviewed results, re-evaluated patient, considered differential, d/w patient, d/w family, d/w network pricing consultant ED course: Patient is an 82-year-old female who presents to the emergency department with a COPD exacerbation. She was given steroids, multiple breathing treatments. She still remains hypoxic and wheezing. On room air the patient drops quickly to 85 to 86%. We will admit the patient for further care for COPD exacerbation. No pneumonia on chest x-ray. Respiratory viral panel is negative. We will continue steroids. She was given Rocephin for the COPD exacerbation as well. She does have a leukocytosis of 20. Discussed the case with the hospitalist who accepts. This document was made in part using voice recognition software. While efforts are made to proofread this document, sound alike and grammatical errors may occur. Departure - Departure Disposition: [facility] DC/Xfer Clinical Impression: Hypoxia, Tachycardia, COPD exacerbation Leukocytosis Qualifiers: Leukocytosis type: unspecified Qualified Code(s): D72.829 - Elevated white blood cell count, unspecified Condition: Stable
[2022-05-11] MEDS ORDERED: HYDROcod/ACETAM 5/325 MG TABLET PO PRN (23:24)
[2022-05-11] MEDS ORDERED: HYDROmorphone 0.5 MG/0.5 ML SYRINGE IVP PRN (23:24)
[2022-05-11] MEDS ORDERED: ONDANSETRON 4 MG/2 ML VIAL IVP PRN (23:24)
[2022-05-11] MEDS ORDERED: ZOLPIDEM 5 MG TABLET PO PRN (23:24)
[2022-05-11] MEDS ORDERED: SODIUM CHLORIDE FLUSH 0.9% 10 ML SYRINGE IVP PRN (23:24)
[2022-05-11] MEDS ORDERED: AZITHROMYCIN INJ 500 MG in SODIUM CHLORIDE 0.9% 250 ML IV STA (23:28)
--- NOTE | 2022-05-11 23:32 | HISTORY & PHYSICAL EXAMINATION ---
Chief Complaint - Chief Complaint Chief Complaint: SOB an cough History of Present Illness - Admitted From Admitted From:: Home - History Obtained From Records Reviewed: Yes History obtained from: Patient and ER team Exam Limitations: Telemedicine - History of Present Illness HPI Comment/Other: 82 yr elderly woman comes to er with SOB and difficulty breathing, she has hx of second hand exposure leading to [employer]OME[employer] HOUSEK[employer], has not seen a lung doctore, currently on appropriate meds, being admitted with acute on chronic COPD exacerbation Patient denies any fevers, no chills, no other active complaints Patieint is otherwise healthy, lives along, drives a car and has quite a few friends SHe was given multiple nebs in ER but still reuqires O2 and still is requiring supplemenatl Ox and due to this reason will admit for observation History - Past Medical History Cardiovascular: reports: High cholesterol, Atrial fibrillation Respiratory: reports: Asthma, COPD Neuro: reports: None Endocrine/Autoimmune: reports: None GI: reports: None BUSINESS SOLUTIONS CONSULTANT: reports: None : reports: None HEENT: reports: None Psych: reports: Depression Musculoskeletal: reports: Osteoarthritis Derm: reports: Rosacea MRSA Hx?: No - Past Surgical History /BUSINESS SOLUTIONS CONSULTANT: reports: Hysterectomy Cardiovascular: reports: Other - POLST Patient has POLST: No Meds/Allgy - Home Medications Home Medications: Ambulatory Orders Medication Instructions Recorded Confirmed Albuterol Sulfate [Proair Hfa 1 - 2 puffs IH Q4HR PRN 04/14/18 04/21/22 Inhaler] Cholecalciferol (Vitamin D3) 1,000 unit PO DAILY 04/14/18 04/21/22 [Vitamin D3] FLUoxetine [PROzac] 40 mg PO DAILY 04/14/18 04/21/22 Fluticasone [Flonase] 1 sprays GAEL DAILY PRN 04/14/18 04/21/22 Fluticasone/Salmeterol [Advair 1 puffs IH BID 04/14/18 04/21/22 250-50 Diskus] Glucosamine HCl/Chondroitin Liz 1 each PO DAILY 04/14/18 04/21/22 [Endur-Flex Sr Tablet] Amox/Clav 875/125 [Augmentin] 1 each PO Q12H #10 tablet 04/21/22 Atorvastatin [Lipitor] 10 mg PO HS 04/21/22 04/21/22 Benzonatate [Tessalon] 100 mg PO TID PRN #15 cap 04/21/22 Budesonide/Formoterol Fumarate 2 puffs INH DAILY 04/21/22 04/21/22 [Symbicort 160-4.5 Mcg Inhaler] Doxycycline Hyclate 100 mg PO BID 04/21/22 04/21/22 Ipratropium [Atrovent] 0.5 mg INH Q6H 15 Days #150 ml 04/21/22 Montelukast [Singulair] 10 mg PO DAILY 04/21/22 04/21/22 Tiotropium [place] [Spiriva 2 puffs INH DAILY 04/21/22 04/21/22 Respimat] dexAMETHasone [Decadron] 4 mg PO DAILY #7 tablet 04/21/22 - Allergies Allergies/Adverse Reactions: Allergies Allergy/AdvReac Type Severity Reaction Status Date / Time latex Allergy Unknown Verified 11/05/20 09:36 milk Allergy Unknown Verified 11/05/20 09:36 Sulfa (Sulfonamide Allergy Unknown Verified 11/05/20 09:36 Antibiotics) terfenadine [From Seldane] Allergy Unknown Verified 11/05/20 09:36 oatmeal Allergy Respiratory Uncoded 03/10/20 12:43 tannic acid Allergy Respiratory Uncoded 03/10/20 12:43 Review of Systems - Respiratory Respiratory: reports: Cough, Wheezing, SOB at rest Prior Level of Functionality: Independent Exam - Vital Signs Vital Signs: Vital Signs x48h Temp Pulse Resp BP Pulse Ox O2 Flow Rate 05/11/22 23:03 2 05/11/22 22:32 92 2 05/11/22 22:31 116 H 93 2 05/11/22 22:29 121 H 24 86 L 05/11/22 22:15 108 H 19 93 2 05/11/22 22:06 115 H 18 92 05/11/22 22:05 89 L 05/11/22 21:38 117 H 22 105/76 2 05/11/22 20:55 107 H 24 05/11/22 20:00 100 20 145/89 H 94 05/11/22 19:40 94 20 2 05/11/22 19:30 94 20 05/11/22 18:45 107 H 28 H 144/97 H 93 2 05/11/22 18:40 88 L 05/11/22 16:43 36.8 C 108 H 18 126/70 99 Sepsis Event Note (H) - Evaluation Current Stage of Sepsis: Ruled out Conclusion/Plan - Problem List (1) COPD exacerbation Conclusion/Plan: Gomez, pULMONARY CONSULT, CONTINUE CURRENT BLOOD THINNERS, WILL NEED PULMONARY FUNCTION TEST OUTPATIENT pULMONARY CONSUT (2) Hypoxia Conclusion/Plan: Supplemental Oxygen to maintian sat > 91 % (3) Leukocytosis Conclusion/Plan: lIKELY REACTIVE FROM STEROIDS CONTINUE TO MONITOR EMPRIC ABX STARTED Qualifiers: Leukocytosis type: unspecified Qualified Code(s): D72.829 - Elevated white blood cell count, unspecified (4) Hyponatremia Conclusion/Plan: lIKELY FROM HYPVOLUMEIA CONTINUEIl TO BE HYDRATED AND CONTINUE TO MONITOR CLOSELY REPEAT LABS IN AM I FOCNTINUES TO BE HIGH MAY CONSIDER ASSISTANCE FROM RENAL TEAM - Lab Results Fish Bones: 05/11/22 19:01 05/11/22 19:01 - Diagnostic Imaging Results Diagnostic Imaging Results: positive: Prelim report reviewed, Final report reviewed, Discussed with radiologist - EKG Results EKG Interpreted Independently: No
[2022-05-12] MEDS: guaiFENesin 600 MG TABLET PO SCH ×3 (00:59→21:18)
[2022-05-12] MEDS: SODIUM CHLORIDE 0.9% 1,000 ML IV SCH ×3 (00:59→22:32)
[2022-05-12] MEDS: SODIUM CHLORIDE FLUSH 0.9% 10 ML SYRINGE IVP SCH ×3 (00:59→16:25)
[2022-05-12] MEDS: ATORVASTATIN 10 MG TABLET PO SCH ×2 (00:59→21:20)
[2022-05-12] MEDS: ACETAMINOPHEN 325 MG TABLET PO PRN ×2 (01:07→16:49)
[2022-05-12 07:58] LABS: BASOPHILS % (AUTO) 0.2 %; HCT - HEMATOCRIT 36.2 % (37.0-47.0); HGB - HEMOGLOBIN 12.3 g/dL (12.0-16.0); LYMPHOCYTES # (AUTO) 0.7 10^3/uL (1.5-3.5); LYMPHOCYTES % (AUTO) 5.4 %; MEAN CORPUSCULAR HEMOGLOBIN 29.2 pg (27.0-31.0); MEAN PLATELET VOLUME 8.6 fL (7.9-10.8); MONOCYTES # (AUTO) 0.2 10^3/uL (0.0-1.0); MONOCYTES % (AUTO) 1.9 %; NEUTROPHILS # (AUTO) 11.6 10^3/uL (1.5-6.6); NEUTROPHILS % (AUTO) 91.7 %; PLT - PLATELET COUNT 294 10^3/uL (130-450); RED BLOOD COUNT 4.21 10^6/uL (4.20-5.40); RED CELL DISTRIBUTION WIDTH 12.4 % (12.0-15.0); WHITE BLOOD COUNT 12.6 x10^3/uL (4.8-10.8)
[2022-05-12 07:59] LABS: CALCIUM 8.7 mg/dL (8.5-10.3); CREATININE 0.5 mg/dL (0.4-1.0); POTASSIUM 3.8 mmol/L (3.5-5.0)
[2022-05-12] MEDS: FLUoxetine 10 MG CAPSULE PO SCH (08:47)
[2022-05-12] MEDS: MONTELUKAST 10 MG TABLET PO SCH (08:47)
[2022-05-12] MEDS: AZITHROMYCIN INJ 500 MG in SODIUM CHLORIDE 0.9% 250 ML IV SCH (11:13)
--- NOTE | 2022-05-12 11:46 | PROVIDER PROGRESS NOTE ---
Subjective - Prog Note Date Prog Note Date: 05/12/22 Prog Note Time: 11:46 - Subjective Subjective: I was able to review her outpatient medical record with [facility]. She developed a chronic cough for years that was associated with chronic sinus conge stion and postnasal drip. The cough increase in severity and frequency by late 2007. She has never smoked. Never had silica or asbestosis exposure. No TB. 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 A July 2008 spirometry showed an FEV1 of 2.01 (99%), FVC of 2.5 (94%), and an FEV1/FVC of 78%. Chest x-ray had diffuse pulmonary infiltrates. She was referred to Dr. Sandoval, pulmonology at [facility]. He assessed her as upper airways cough and sinusitis and treated her with nasal steroids, other medical issues came to the forefront with dizziness, palpitations and there is no further pulmonology note that I can find in the outpatient records. She has been told she has asthma. She was then referred to [facility] pulmonology in January 2018. FVC was 2.86. FEV1 2.45. FEV1 FVC 0.86. Flow volume loop was normal, normal spirometry. She was wheezing. She was started on Breo. Albuterol. And told to get yearly flu shots. She was seen by allergy and immunology May 2021 with a history of distal asthma and eczema. She was diagnosed as having persistent asthma and was continued on Advair, Singulair, as needed albuterol. With all these evaluations there is no comment on what interstitial pulmonary fibrosis. She was seen in clinic April 14 and a chest x-ray showed pneumonia. Treatment was steroids and doxycycline. She did not get better so she went to the ER and she was seen in the emergency room April 21 with 2 weeks of cough and shortness of breath and worsening asthma. She was given Augmentin and Atrovent and Decadron antibiotics with that ER visit. Since that time she really has not improved. Phlegm started increasing in amount as well as changing in color. And she developed a yeast infection in her mouth. She was seen again in clinic May 01. The clinic felt that she had reactive airways disease and she was referred to an hospice superintendent. Antibiotics were completed, she was feeling better but she still had a deep, productive cough. Symbicort was added, Spiriva was added, and Atrovent was continued. Spiriva in combination with Atrovent is usually contraindicated because of its anticholinergic effects. She was to follow-up in 1 week with her usual primary care provider MAVIS Hooks. She called the clinic May 06 because she was not getting any better. They were able to speak to her May 09 and she was now describing chills and yellow phlegm. They referred her to the ED. However she did not come to the emergency room until May 11. In the emergency room temperature was 36.8. Heart rate went away. Blood pressure 126/70. Respirations 18. 99% on room air. During her stay in the ED though, she dropped her room her sats to 88% on room air. Respiratory rate was 28. She received albuterol, Tessalon, DuoNeb twice, prednisone p.o. without much response. Chest x-ray does not have any significant interval change but it does not say what dates were reviewed. She has prominent interstitial markings which appear chronic. April 14 x-ray had a patchy left basilar opacity. Coarse interstitial markin gs. A curvilinear object was probably an external catheter or tube of some type. In April 21 chest x-ray had improved appearance of the previous left basilar opacity but slightly increased opacity noted within the right base. Chest x-ray in the emergency room last night had no significant interval change. In addition the patient has received azithromycin, Rocephin and Singulair. She continues to get nebs. This morning she was seen where she was still very tired, asleep. Really was mumbling when I try to speak to her son no clear history. Past medical history: 1. Osteoarthritis of the hands. Feet with bunions. 2. Early satiety and weight lost resulted in CT abdomen November 2006 and May 2007. She had lymphadenopathy and free fluid in the pelvis, uterus was absent, arthritis seen in the lumbar spine. 6 mm hemangioma in the right hepatic lobe. Indeterminate low-attenuation lesion in the left hepatic lobe. 1.6 x 1.6 lobulated low-tension lesion in the spleen. Small left renal cyst. Appetite came back. No further follow-up. 3. Conductive hearing loss 4. Abdominal pain work-up 2006 with the EGD, hepatobiliary study. Mild to moderate gastritis distal part of the stomach. Had low ejection fraction for the gallbladder at 21.3% (normal is 35%) with gallbladder dyskinesia. 5. Cellophane maculopathy 6. Followed by [facility], Dr. Iam Narayan. Chronic palpitations, history of atrial tachycardia in the past, PVCs, episode of SVT May 2018 status post AV chula modification ablation September 2018. Able to come off digoxin 2018. Stress echo August 2018 negative for inducible ischemia. Ejection fraction 60 to 65%. 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 All of this leads to a slightly ataxic gait. 7. Hyperlipidemia with total cholesterol 185, triglycerides 66, HDL 78, LDL 93. 8. Chronically elevated total bilirubin 9. Chronic hyponatremia 10. Dandy-Walker cyst 11. Cataract extractions 12. Hysterectomy This morning she is very fatigued. Sleeping. Does not awaken to my voice. Current Medications - Current Medications Current Medications: Active Medications Acetaminophen (Acetaminophen 325 Mg Tablet) 650 mg PO Q4HR PRN PRN Reason: Pain 1 to 4, or Fever Last Admin: 05/12/22 01:07 Dose: 650 mg Hydrocodone Bitart/Acetaminophen (Hydrocod/Acetam 5/325 Mg Tablet) 1 tab PO Q4HR PRN PRN Reason: Pain 5 to 7 Atorvastatin Calcium (Atorvastatin 10 Mg Tablet) 10 mg PO HS [facility] Last Admin: 05/12/22 00:59 Dose: 10 mg Fluoxetine HCl (Fluoxetine 10 Mg Capsule) 40 mg PO DAILY [facility] Last Admin: 05/12/22 08:47 Dose: 40 mg Guaifenesin (Guaifenesin 600 Mg Tablet) 1,200 mg PO BID [facility] Last Admin: 05/12/22 08:47 Dose: 1,200 mg Hydromorphone HCl (Hydromorphone 0.5 Mg/0.5 Ml Syringe) 0.5 mg IVP Q2H PRN PRN Reason: Pain 8 to 10 Sodium Chloride (Normal Saline 0.9%) 1,000 mls @ 100 mls/hr IV .Q10H [facility] Last Infusion: 05/12/22 11:12 Dose: 0 mls/hr Azithromycin 500 mg/ Sodium (Chloride) 250 mls @ 250 mls/hr IV DAILY [facility] Stop: 05/14/22 09:59 Last Admin: 05/12/22 11:13 Dose: 250 mls/hr Montelukast Sodium (Montelukast 10 Mg Tablet) 10 mg PO DAILY [facility] Last Admin: 05/12/22 08:47 Dose: 10 mg Ondansetron HCl (Ondansetron 4 Mg/2 Ml Vial) 4 mg IVP Q6HR PRN PRN Reason: Nausea / Vomiting Sodium Chloride (Sodium Chloride Flush 0.9% 10 Ml Syringe) 10 ml IVP PRN PRN PRN Reason: NEEDED PER PROVIDER ORDERS Sodium Chloride (Sodium Chloride Flush 0.9% 10 Ml Syringe) 10 ml IVP 0100,0900,1700 [facility] Last Admin: 05/12/22 08:47 Dose: Not Given Zolpidem Tartrate (Zolpidem 5 Mg Tablet) 5 mg PO QPM PRN PRN Reason: Insomnia Albuterol Sulfate [Proair Hfa Inhaler] 1 - 2 puffs IH Q4HR PRN 04/14/18 Cholecalciferol (Vitamin D3) [Vitamin D3] 1,000 unit PO DAILY 04/14/18 FLUoxetine [PROzac] 40 mg PO DAILY 04/14/18 Fluticasone [Flonase] 1 sprays GAEL DAILY PRN 04/14/18 Glucosamine HCl/Chondroitin Liz [Endur-Flex Sr Tablet] 1 each PO DAILY 04/14/18 Atorvastatin [Lipitor] 10 mg PO HS 04/21/22 Budesonide/Formoterol Fumarate [Symbicort 160-4.5 Mcg Inhaler] 2 puffs INH BID 04/21/22 Montelukast [Singulair] 10 mg PO QPM 04/21/22 Tiotropium [place] [Spiriva Respimat] 2 puffs INH DAILY 04/21/22 Ascorbic Acid [Vitamin C] 500 mg PO DAILY 05/12/22 Biotin 1 tab PO DAILY 05/12/22 Calcium Carbonate [Tums (Calcium Carbonate 500mg)] 500 mg PO DAILY 05/12/22 Cyanocobalamin [Vitamin B-12] 1 tab PO DAILY 05/12/22 Echinacea Purpurea Aerial Ext [Echinacea] 1 cap PO DAILY PRN 05/12/22 Ginkgo Biloba [place] Extract [Ginkgo Biloba] 1 cap PO DAILY 05/12/22 Ipratropium/Albuterol [Duoneb] 3 ml INH Q6H PRN 05/12/22 Loratadine [All Day Allergy Relief] 10 mg PO DAILY 05/12/22 Magnesium Oxide 1 tab PO DAILY 05/12/22 Melatonin/Pyridoxine [Melatonin 5 mg Tablet] 1 tab PO QPM PRN 05/12/22 Metronidazole 1% Gel [Metrogel] 1 applic TOP DAILY 05/12/22 Turmeric 1 cap PO DAILY 05/12/22 Ubidecarenone [Co Q-10] 1 cap PO DAILY 05/12/22 Vitamin B Complex 1 tab PO DAILY 05/12/22 Zinc Sulfate 220 mg PO DAILY 05/12/22 Objective - Vital Signs/Intake & Output Reviewed Vital Signs: Yes Vital Signs: Vital Signs x48h Temp Pulse Pulse Resp BP Pulse Ox O2 Flow Rate 05/12/22 11:34 36.6 C 91 18 130/71 91 L 2 05/12/22 09:00 94 1 05/12/22 08:00 36.6 C 96 18 132/81 H 91 L 2 05/12/22 07:34 2 05/12/22 07:32 98 20 2 05/12/22 05:36 2 Intake & Output: Intake & Output 05/09/22 05/10/22 05/11/22 05/12/22 23:59 23:59 23:59 23:59 Intake Total 2240 Balance 2240 - Objective General Appearance: positive: No acute distress, Other (Short statured frail elderly female, in her sleep she has audible wheezing even without a stethosco pe. But no use of accessory muscles.) Eyes Bilateral: positive: PERRL, EOMI ENT: positive: No signs of dehydration Neck: positive: No JVD Respiratory: positive: Wheezes, Rhonchi, Other (When I wake her up, nasal tone of voice) Cardiovascular: positive: Regular rate & rhythm, Systolic murmur Abdomen: positive: Non-tender, No organomegaly, Nml bowel sounds, No distention Skin: positive: Warm, Dry Extremities: positive: Full ROM, No pedal edema Neurologic/Psychiatric: positive: CN's nml (2-12), Motor nml, Disoriented to time - Lab Results Fish Bones: 05/12/22 07:45 05/12/22 07:45 Other Labs: Lab Results x24hrs 05/12/22 05/12/22 05/11/22 Range/Units 07:45 07:45 21:33 WBC 12.6 H (4.8-10.8) x10^3/uL RBC 4.21 (4.20-5.40) 10^6/uL Hgb 12.3 (12.0-16.0) g/dL Hct 36.2 L (37.0-47.0) % MCV 86.0 (81.0-99.0) fL MCH 29.2 (27.0-31.0) pg MCHC 34.0 (32.0-36.0) g/dL RDW 12.4 (12.0-15.0) % Plt Count 294 (130-450) 10^3/uL MPV 8.6 (7.9-10.8) fL Neut # (Auto) 11.6 H Lymph # (Auto) 0.7 L [place] # (Auto) 0.2 Eos # (Auto) 0.0 Baso # (Auto) 0.0 Absolute Nucleated RBC 0.00 Total Counted Band Neuts % (Manual) (0 - 10) % Abnorm Lymph % (Manual) % Nucleated RBC % 0.0 Neutrophils # (Manual) (1.5-6.6) 10^3/uL Lymphocytes # (Manual) (1.5-3.5) 10^3/uL Monocytes # (Manual) (0.0-1.0) 10^3/uL Eosinophils # (Manual) (0-0.7) 10^3/uL Basophils # (Manual) (0-0.1) 10^3/uL Differential Comment WBC Morphology (NORMAL) Platelet Estimate (NORMAL) Platelet Morphology (NORMAL) RBC Morph Micro Appear (NORMAL) Sodium 131 L (135-145) mmol/L Potassium 3.8 (3.5-5.0) mmol/L Chloride 100 L (101-111) mmol/L Carbon Dioxide 21 (21-32) mmol/L Anion Gap 10.0 (6-13) BUN 9 (6-20) mg/dL Creatinine 0.5 (0.4-1.0) mg/dL Estimated GFR (MDRD) 118 (>89) Glucose 138 H (70-100) mg/dL Lactic Acid 1.0 (0.5-2.2) mmol/L Calcium 8.7 (8.5-10.3) mg/dL Total Bilirubin (0.2-1.0) mg/dL AST (10-42) IU/L ALT (10-60) IU/L Alkaline Phosphatase (42-121) IU/L Total Protein (6.7-8.2) g/dL Albumin (3.2-5.5) g/dL Globulin (2.1-4.2) g/dL Albumin/Globulin Ratio (1.0-2.2) Nasal Adenovirus (PCR) Nasal B. parapertussis DNA (PCR) Nasal Coronavir 229E PCR Nasal Coronavir HKU1 PCR Nasal Coronavir NL63 PCR Nasal Coronavir OC43 PCR Nasal Enterovir/Rhinovir PCR Nasal Influenza B PCR Nasal Influenza A PCR Nasal Parainfluen 1 PCR Nasal Parainfluen 2 PCR Nasal Parainfluen 3 PCR Nasal Parainfluen 4 PCR Nasal RSV (PCR) Nasal B.pertussis DNA PCR Nasal C.pneumoniae (PCR) Gael Human Metapneumo PCR Nasal M.pneumoniae (PCR) Nasal SARS-CoV-2 (PCR) 05/11/22 05/11/22 05/11/22 Range/Units 20:56 19:01 19:01 WBC 20.2 H (4.8-10.8) x10^3/uL RBC 4.43 (4.20-5.40) 10^6/uL Hgb 13.0 (12.0-16.0) g/dL Hct 38.0 (37.0-47.0) % MCV 85.8 (81.0-99.0) fL MCH 29.3 (27.0-31.0) pg MCHC 34.2 (32.0-36.0) g/dL RDW 12.4 (12.0-15.0) % Plt Count 316 (130-450) 10^3/uL MPV 8.5 (7.9-10.8) fL Neut # (Auto) Not Reportable Lymph # (Auto) Not Reportable [place] # (Auto) Not Reportable Eos # (Auto) Not Reportable Baso # (Auto) Not Reportable Absolute Nucleated RBC Not Reportable Total Counted 100 Band Neuts % (Manual) 0 (0 - 10) % Abnorm Lymph % (Manual) 0 % Nucleated RBC % Not Reportable Neutrophils # (Manual) 18.0 H (1.5-6.6) 10^3/uL Lymphocytes # (Manual) 0.8 L (1.5-3.5) 10^3/uL Monocytes # (Manual) 0.6 (0.0-1.0) 10^3/uL Eosinophils # (Manual) 0.8 H (0-0.7) 10^3/uL Basophils # (Manual) 0.0 (0-0.1) 10^3/uL Differential Comment MANUAL DIFFERENTIAL WBC Morphology 1+ TOXIC GRANULATION (NORMAL) Platelet Estimate NORMAL (130-450,000) (NORMAL) Platelet Morphology NORMAL APPEARANCE (NORMAL) RBC Morph Micro Appear NORMAL APPEARANCE (NORMAL) Sodium 129 L (135-145) mmol/L Potassium 3.4 L (3.5-5.0) mmol/L Chloride 95 L (101-111) mmol/L Carbon Dioxide 22 (21-32) mmol/L Anion Gap 12.0 (6-13) BUN 11 (6-20) mg/dL Creatinine 0.5 (0.4-1.0) mg/dL Estimated GFR (MDRD) 118 (>89) Glucose 139 H (70-100) mg/dL Lactic Acid (0.5-2.2) mmol/L Calcium 8.8 (8.5-10.3) mg/dL Total Bilirubin 1.3 H (0.2-1.0) mg/dL AST 35 (10-42) IU/L ALT 25 (10-60) IU/L Alkaline Phosphatase 139 H (42-121) IU/L Total Protein 6.9 (6.7-8.2) g/dL Albumin 3.2 (3.2-5.5) g/dL Globulin 3.7 (2.1-4.2) g/dL Albumin/Globulin Ratio 0.9 L (1.0-2.2) Nasal Adenovirus (PCR) NOT DETECTED Nasal B. parapertussis DNA (PCR) NOT DETECTED Nasal Coronavir 229E PCR NOT DETECTED Nasal Coronavir HKU1 PCR NOT DETECTED Nasal Coronavir NL63 PCR NOT DETECTED Nasal Coronavir OC43 PCR NOT DETECTED Nasal Enterovir/Rhinovir PCR NOT DETECTED Nasal Influenza B PCR NOT DETECTED Nasal Influenza A PCR NOT DETECTED Nasal Parainfluen 1 PCR NOT DETECTED Nasal Parainfluen 2 PCR NOT DETECTED Nasal Parainfluen 3 PCR NOT DETECTED Nasal Parainfluen 4 PCR NOT DETECTED Nasal RSV (PCR) NOT DETECTED Nasal B.pertussis DNA PCR NOT DETECTED Nasal C.pneumoniae (PCR) NOT DETECTED Gael Human Metapneumo PCR NOT DETECTED Nasal M.pneumoniae (PCR) NOT DETECTED Nasal SARS-CoV-2 (PCR) NOT DETECTED ABX Reporting Has patient been on IV antibiotics over the past 48 hours?: Yes Sepsis Event Note (H) - Evaluation Current Stage of Sepsis: Ruled out Assessment/Plan - Problem List (1) COPD exacerbation Impression: Although she has been seen by pulmonology and has had spirometry in the past, her diagnosis is always been that of allergic related asthma. No one has commented on the interstitial changes on chest x-ray nor is there a DLCO noted in the chart. Today's exam shows continued wheezing in spite of interventions. She may be slow to respond. This current episode seems to have been going on since mid Mar noé to now. Plan: Continue Singulair,. The admitting provider did not order nebulizers for her t his morning and I will order DuoNeb 4 times daily with RT. Inhaled budesonide. Albuterol as needed. At home she does take formoterol, Spiriva and budesonide. During her hospitalization I will hold off on the Spiriva because of the DuoNeb. The etiology of this current exacerbation is not quite clear to me. She has been treated several times antibiotics, she does not have any RSV or rhinovirus, it is not clear if her asthma is allergy mediated or not. She is being seen by allergy immunology but they are noncommittal evaluation. I will most likely do a spiral CT to look at her interstitial changes. (2) Hypoxia Conclusion/Plan: Supplemental Oxygen to silastian sat > 91 % She has been consistently on 2 L. Occasionally goes down to 1 L but at 2 L she is 94% saturated. That will be continued until she is normal saturation on room air (3) Leukocytosis Conclusion/Plan: White cell count was elevated April 21. She was 11,000. With yesterday's ER intervention she went to 20. Today she is come down to 12.6. She is felt to have probable demargination with steroids given in the ED and at home. Not ne cessarily associated with bacterial infection. Nevertheless she is on empiric antibiotics.She did receive 1 dose of Rocephin in the emergency room. As well as azithromycin. Since she does not clearly have pneumonia on chest x-ray, I will continue azithromycin since the literature does suggest that azithromycin or doxycycline will reduce severity of COPD exacerbation even though there is no bacterial indication. She will get a total of 3 days. Qualifiers: Leukocytosis type: unspecified Qualified Code(s): D72.829 - Elevated white blood cell count, unspecified (4) Hyponatremia Conclusion/Plan: Attributed to hypovolemia. With hydration in the ED and on MedSurg overnight sodium was gone from 1 29-1 31. We will continue IV fluids. The telem hospitalist says that he would recommend discussion with the renal team. However this is a critical access hospital. We do not have specialty services here. Creatinine is steady at 0.5. This is her baseline.
--- NOTE | 2022-05-12 12:11 | PHARMACY PROGRESS NOTE ---
- Best Possible Medication History Admit Date and Time: 05/11/22 9864 Processed by: Pharmacy Medication History completed: Yes Patient Interview: Completed Secondary Source(s): Insurance records As the person ultimately responsible for medication therapy, providers are able to order a medication from an existing home medication list in [facility] via the "Reconcile Routine" prior to Confirmation of that medication by operations support specialist. Such practice is discouraged except when the physician, in their clinical judgment, deems that a medical need exists for a medication without regard to previous use.
[2022-05-12] MEDS: IPRATROPIUM/ALBUTEROL 3 ML NEB INH SCH ×2 (15:25→19:50)
--- NOTE | 2022-05-12 18:14 | CT Report ---
PROCEDURE: CHEST WO INDICATIONS: interstitial pulmonary fibrosis TECHNIQUE: Noncontrast 1mm axial images were acquired from the pulmonary apices to the posterior costophrenic an gles. Axial 5 mm soft tissue kernel reconstructions were performed as well as 8 mm axial MIP and cor onal and sagittal 5 mm reformations. For radiation dose reduction, the following was used: automate d exposure control, adjustment of mA and/or kV according to patient size. COMPARISON: 2 views of the chest dated 05/11/2022. CT of the chest dated 11/05/2020 FINDINGS: Image quality: Short artifact somewhat limits evaluation. Lungs and pleura: Multifocal patchy pulmonary opacities are present bilaterally most confluent within the upper and mid lungs. A 6 mm pulmonary nodule is present at the lateral left lung base (series 4/ image 251). Bronchiectatic airways are present in the dependent lung bases bilaterally. Mediastinum: Heart size is normal. No pericardial effusion. No mediastinal adenopathy by size crit eria. Thoracic aorta and central pulmonary arteries are normal in size. Esophagus is normal in ovidio kelle. No hiatal hernia. Bones and chest wall: No suspicious bony lesions. No vertebral body compression fractures. No axil boby or supraclavicular adenopathy by size criteria. The thyroid is normal in size and there are no incidental findings. Abdomen: Visualized upper abdominal solid organs and bowel loops appear normal in the absence of con trast. IMPRESSION: 1. Breathing motion artifact limits evaluation of the study. 2. Multifocal patchy pulmonary opacities predominantly within the upper and mid lungs suspicious for multifocal pneumonia. If clinically appropriate, Covid 19 could cause this appearance. Short interval follow-up is recommended to exclude underlying pulmonary neoplasm. Reviewed by: Casie Ludwig MD on 05/12/2022 6:12 PM PST Approved by: Casie Ludwig MD on 05/12/2022 6:12 PM PST Station ID: [id number]
[2022-05-12] MEDS ORDERED: IBUPROFEN 400 MG TABLET PO PRN (18:53)
[2022-05-12] MEDS: FORMOTEROL FUMARATE NEB 20 MCG/2 ML INH SCH (19:50)
[2022-05-12] MEDS: BUDESONIDE 0.5 MG/2 ML NEB INH SCH (19:50)
[2022-05-12] MEDS: methylPREDNISolone SUCCINATE 40 MG/ML VIAL IVP SCH (21:21)
[2022-05-13] MEDS: SODIUM CHLORIDE FLUSH 0.9% 10 ML SYRINGE IVP SCH ×4 (00:37→23:34)
[2022-05-13] MEDS: methylPREDNISolone SUCCINATE 40 MG/ML VIAL IVP SCH (05:39)
[2022-05-13 05:51] LABS: BASOPHILS % (AUTO) 0.2 %; EOSINOPHILS % (AUTO) 0.1 %; HCT - HEMATOCRIT 35.7 % (37.0-47.0); HGB - HEMOGLOBIN 12.2 g/dL (12.0-16.0); LYMPHOCYTES # (AUTO) 0.4 10^3/uL (1.5-3.5); LYMPHOCYTES % (AUTO) 3.5 %; MEAN CORPUSCULAR HEMOGLOBIN 29.3 pg (27.0-31.0); MEAN CORPUSCULAR HGB CONC 34.2 g/dL (32.0-36.0); MEAN CORPUSCULAR VOLUME 85.8 fL (81.0-99.0); MEAN PLATELET VOLUME 8.8 fL (7.9-10.8); MONOCYTES # (AUTO) 0.1 10^3/uL (0.0-1.0); MONOCYTES % (AUTO) 1.1 %; NEUTROPHILS # (AUTO) 11.3 10^3/uL (1.5-6.6); NEUTROPHILS % (AUTO) 94.3 %; PLT - PLATELET COUNT 323 10^3/uL (130-450); RED BLOOD COUNT 4.16 10^6/uL (4.20-5.40); RED CELL DISTRIBUTION WIDTH 12.5 % (12.0-15.0)
[2022-05-13 06:00] LABS: CALCIUM 8.3 mg/dL (8.5-10.3); CREATININE 0.4 mg/dL (0.4-1.0); POTASSIUM 3.5 mmol/L (3.5-5.0)
[2022-05-13] MEDS: MONTELUKAST 10 MG TABLET PO SCH (08:16)
[2022-05-13] MEDS: MAGNESIUM OXIDE 400 MG TABLET PO SCH (08:16)
[2022-05-13] MEDS: FLUoxetine 10 MG CAPSULE PO SCH (08:16)
[2022-05-13] MEDS: guaiFENesin 600 MG TABLET PO SCH ×2 (08:16→20:33)
[2022-05-13] MEDS: CYANOCOBALAMIN 500 MCG TABLET PO SCH (08:16)
[2022-05-13] MEDS: ASCORBIC ACID 500 MG TABLET PO SCH (08:16)
[2022-05-13] MEDS: CALCIUM CARBONATE CHEW 500 MG TABLET PO SCH (08:16)
[2022-05-13] MEDS: LORATADINE 10 MG TABLET PO SCH (08:16)
[2022-05-13] MEDS: AZITHROMYCIN INJ 500 MG in SODIUM CHLORIDE 0.9% 250 ML IV SCH (08:17)
[2022-05-13] MEDS: SODIUM CHLORIDE 0.9% 1,000 ML IV SCH (08:19)
[2022-05-13] MEDS: BUDESONIDE 0.5 MG/2 ML NEB INH SCH ×2 (10:07→19:31)
[2022-05-13] MEDS: FORMOTEROL FUMARATE NEB 20 MCG/2 ML INH SCH ×2 (10:07→19:31)
[2022-05-13] MEDS: IPRATROPIUM/ALBUTEROL 3 ML NEB INH SCH ×4 (10:07→19:31)
[2022-05-13] MEDS ORDERED: AZITHROMYCIN 250 MG TABLET PO ONE (12:18)
--- NOTE | 2022-05-13 12:42 | PROVIDER PROGRESS NOTE ---
Subjective - Prog Note Date Prog Note Date: 05/13/22 Prog Note Time: 12:40 - Subjective Pt reports feeling: Improved Subjective: Nursing reports that this patient has become much more talkative, alert between yesterday afternoon and today. This morning she is sitting upright in bed, expressing surprise that she felt as badly as she did but she feels better today. Does not have a lot of insight. She does describe her coughing and her wheezing and how long she has had it. She said this is the worst it has ever been. She says that getting up to walk to the bathroom from this hospital bed is a job in and of itself. She cannot believe how short of breath and how much she wheezes by the time she gets back in bed. In speaking to nursing she is on 1 L nasal cannula and is saturating at 92 to 93%. By the time she gets up to the bathroom gets back in bed she is satting 86% without 1 L nasal cannula. Wheezing is severe until 2 to 3 minutes past by and then she gets back to baseline. She says that she is still producing yellow phlegm. But much less. Starting to have some appetite. She wanted to know what the CAT scan showed and I explained to her what bronchiectasis is in layman's terms. I don't know if that is her diagnosis but that her lungs seem to be changing in that direction. Current Medications - Current Medications Current Medications: Active Medications Acetaminophen (Acetaminophen 325 Mg Tablet) 650 mg PO Q4HR PRN PRN Reason: Pain 1 to 4, or Fever Last Admin: 05/12/22 16:49 Dose: 650 mg Hydrocodone Bitart/Acetaminophen (Hydrocod/Acetam 5/325 Mg Tablet) 1 tab PO Q4HR PRN PRN Reason: Pain 5 to 7 Albuterol/Ipratropium (Ipratropium/Albuterol 3 Ml Neb) 3 ml INH RTQID [facility] Last Admin: 05/13/22 10:07 Dose: 3 ml Ascorbic Acid (Ascorbic Acid 500 Mg Tablet) 500 mg PO DAILY [facility] Last Admin: 05/13/22 08:16 Dose: 500 mg Atorvastatin Calcium (Atorvastatin 10 Mg Tablet) 10 mg PO HS [facility] Last Admin: 05/12/22 21:20 Dose: 10 mg Budesonide (Budesonide 0.5 Mg/2 Ml Neb) 0.5 mg INH RTBID [facility] Last Admin: 05/13/22 10:07 Dose: 0.5 mg Calcium Carbonate/Glycine (Calcium Carbonate Chew 500 Mg Tablet) 500 mg PO DAILY [facility] Last Admin: 05/13/22 08:16 Dose: 500 mg Cyanocobalamin (Cyanocobalamin 500 Mcg Tablet) 500 mcg PO DAILY [facility] Last Admin: 05/13/22 08:16 Dose: 500 mcg Fluoxetine HCl (Fluoxetine 10 Mg Capsule) 40 mg PO DAILY [facility] Last Admin: 05/13/22 08:16 Dose: 40 mg Formoterol Fumarate (Formoterol Fumarate Neb 20 Mcg/2 Ml) 20 mcg INH RTBID [facility] Last Admin: 05/13/22 10:07 Dose: 20 mcg Guaifenesin (Guaifenesin 600 Mg Tablet) 1,200 mg PO BID [facility] Last Admin: 05/13/22 08:16 Dose: 1,200 mg Hydromorphone HCl (Hydromorphone 0.5 Mg/0.5 Ml Syringe) 0.5 mg IVP Q2H PRN PRN Reason: Pain 8 to 10 Sodium Chloride (Normal Saline 0.9%) 1,000 mls @ 100 mls/hr IV .Q10H [facility] Stop: 05/13/22 15:44 Last Admin: 05/13/22 08:19 Dose: 100 mls/hr Ibuprofen (Ibuprofen 400 Mg Tablet) 400 mg PO Q6HR PRN PRN Reason: PAIN Loratadine (Loratadine 10 Mg Tablet) 10 mg PO DAILY [facility] Last Admin: 05/13/22 08:16 Dose: 10 mg Magnesium Oxide (Magnesium Oxide 400 Mg Tablet) 400 mg PO DAILY [facility] Last Admin: 05/13/22 08:16 Dose: 400 mg Methylprednisolone (Methylprednisolone 4 Mg Tablet) 12 mg PO DAILYWM [facility] Stop: 05/13/22 13:01 Methylprednisolone (Methylprednisolone 4 Mg Tablet) 8 mg PO DAILYWM [facility] Methylprednisolone (Methylprednisolone 4 Mg Tablet) 4 mg PO DAILYWM [facility] Montelukast Sodium (Montelukast 10 Mg Tablet) 10 mg PO DAILY [facility] Last Admin: 05/13/22 08:16 Dose: 10 mg Ondansetron HCl (Ondansetron 4 Mg/2 Ml Vial) 4 mg IVP Q6HR PRN PRN Reason: Nausea / Vomiting Sodium Chloride (Sodium Chloride Flush 0.9% 10 Ml Syringe) 10 ml IVP PRN PRN PRN Reason: NEEDED PER PROVIDER ORDERS Sodium Chloride (Sodium Chloride Flush 0.9% 10 Ml Syringe) 10 ml IVP 010 0,0900,1700 [facility] Last Admin: 05/13/22 08:17 Dose: Not Given Zolpidem Tartrate (Zolpidem 5 Mg Tablet) 5 mg PO QPM PRN PRN Reason: Insomnia Albuterol Sulfate [Proair Hfa Inhaler] 1 - 2 puffs IH Q4HR PRN 04/14/18 Cholecalciferol (Vitamin D3) [Vitamin D3] 1,000 unit PO DAILY 04/14/18 FLUoxetine [PROzac] 40 mg PO DAILY 04/14/18 Fluticasone [Flonase] 1 sprays GAEL DAILY PRN 04/14/18 Glucosamine HCl/Chondroitin Liz [Endur-Flex Sr Tablet] 1 each PO DAILY 04/14/18 Atorvastatin [Lipitor] 10 mg PO HS 04/21/22 Budesonide/Formoterol Fumarate [Symbicort 160-4.5 Mcg Inhaler] 2 puffs INH BID 04/21/22 Montelukast [Singulair] 10 mg PO QPM 04/21/22 Tiotropium [place] [Spiriva Respimat] 2 puffs INH DAILY 04/21/22 Ascorbic Acid [Vitamin C] 500 mg PO DAILY 05/12/22 Biotin 1 tab PO DAILY 05/12/22 Calcium Carbonate [Tums (Calcium Carbonate 500mg)] 500 mg PO DAILY 05/12/22 Cyanocobalamin [Vitamin B-12] 1 tab PO DAILY 05/12/22 Echinacea Purpurea Aerial Ext [Echinacea] 1 cap PO DAILY PRN 05/12/22 Ginkgo Biloba [place] Extract [Ginkgo Biloba] 1 cap PO DAILY 05/12/22 Ipratropium/Albuterol [Duoneb] 3 ml INH Q6H PRN 05/12/22 Loratadine [All Day Allergy Relief] 10 mg PO DAILY 05/12/22 Magnesium Oxide 1 tab PO DAILY 05/12/22 Melatonin/Pyridoxine [Melatonin 5 mg Tablet] 1 tab PO QPM PRN 05/12/22 Metronidazole 1% Gel [Metrogel] 1 applic TOP DAILY 05/12/22 Turmeric 1 cap PO DAILY 05/12/22 Ubidecarenone [Co Q-10] 1 cap PO DAILY 05/12/22 Vitamin B Complex 1 tab PO DAILY 05/12/22 Zinc Sulfate 220 mg PO DAILY 05/12/22 Objective - Vital Signs/Intake & Output Reviewed Vital Signs: Yes Vital Signs: Vital Signs x48h Temp Pulse Pulse Resp BP Pulse Ox O2 Flow Rate 05/13/22 12:02 36.7 C 102 H 20 140/85 H 92 1 05/13/22 10:10 92 16 1 05/13/22 08:40 36.6 C 92 20 141/90 H 91 L 1 05/13/22 05:00 36.8 C 90 20 131/79 H 93 1 Intake & Output: Intake & Output 05/10/22 05/11/22 05/12/22 05/13/22 23:59 23:59 23:59 23:59 Intake Total 4330.000 1348.333 Output Total 180 1050 Balance 4150.000 298.333 - Objective General Appearance: positive: Alert, Other (5 to 2 inch elderly female, alert, appropriate conversation, no use of accessory muscles with conversation but does get tachypneic and uses accessory muscles when I get her out of bed to sit in a chair) Eyes Bilateral: positive: PERRL, EOMI ENT: positive: No signs of dehydration Neck: positive: No JVD. negative: Stiff neck Respiratory: positive: Wheezes (Faint on left chest. But when I get her up to sit in the chair, wheezing becomes more pronounced, bilateral lungs.), Rhonchi Cardiovascular: positive: Regular rate & rhythm, Systolic murmur Abdomen: positive: Non-tender, No organomegaly, Nml bowel sounds, No distention Skin: positive: Warm, Dry. negative: Pallor Extremities: positive: Full ROM, No pedal edema Neurologic/Psychiatric: positive: Oriented x3, CN's nml (2-12), Motor nml - Lab Results Fish Bones: 05/13/22 05:05 05/13/22 05:05 Other Labs: Lab Results x24hrs 05/13/22 05/13/22 Range/Units 05:05 05:05 WBC 12.0 H (4.8-10.8) x10^3/uL RBC 4.16 L (4.20-5.40) 10^6/uL Hgb 12.2 (12.0-16.0) g/dL Hct 35.7 L (37.0-47.0) % MCV 85.8 (81.0-99.0) fL MCH 29.3 (27.0-31.0) pg MCHC 34.2 (32.0-36.0) g/dL RDW 12.5 (12.0-15.0) % Plt Count 323 (130-450) 10^3/uL MPV 8.8 (7.9-10.8) fL Neut # (Auto) 11.3 H (1.5-6.6) 10^3/uL Lymph # (Auto) 0.4 L (1.5-3.5) 10^3/uL [place] # (Auto) 0.1 (0.0-1.0) 10^3/uL Eos # (Auto) 0.0 (0.0-0.7) 10^3/uL Baso # (Auto) 0.0 (0.0-0.1) 10^3/uL Absolute Nucleated RBC 0.00 x10^3/uL Nucleated RBC % 0.0 /100WBC Sodium 128 L (135-145) mmol/L Potassium 3.5 (3.5-5.0) mmol/L Chloride 97 L (101-111) mmol/L Carbon Dioxide 21 (21-32) mmol/L Anion Gap 10.0 (6-13) BUN 8 (6-20) mg/dL Creatinine 0.4 (0.4-1.0) mg/dL Estimated GFR (MDRD) 153 (>89) Glucose 159 H (70-100) mg/dL Calcium 8.3 L (8.5-10.3) mg/dL ABX Reporting Has patient been on IV antibiotics over the past 48 hours?: Yes Sepsis Event Note (H) - Evaluation Current Stage of Sepsis: Ruled out Assessment/Plan - Problem List (1) COPD exacerbation Impression: Although she has been seen by pulmonology and has had spirometry in the past, her diagnosis is always been that of allergic related asthma. No one has commented on the interstitial changes on chest x-ray nor is there a DLCO noted in the chart. Today's exam shows improved wheezing at rest. But she desaturates and becomes tachypneic with exertion of getting out of bed to the bathroom. Still not at baseline. Chest x-ray Showing Interstitial Changes When I Reviewed Those Old Films. CT Was Done Looking for Interstitial Pulmonary Fibrosis. She Had Multifocal Patchy Pulmonary Opacities Predominantly within the Upper and Midlung Suspicious for Multifocal Pneumonia. She had a 6 mm pulmonary nodule at the left lateral base. Bronchiectatic airways present in the dependent lungs bilaterally. I spoke to the radiologist to discuss this case. He says that he sees some bronchiectasis changes in the upper lobes. The changes are not severe. It is mainly the mu ltifocal groundglass opacities that he seen. He is not seeing severe changes of interstitial fibrosis. I continued Singulair for hx of allergies. The admitting provider did not order nebulizers for her so those were resumed 05/12 with DuoNeb 4 times daily with RT. Inhaled budesonide. Albuterol as needed. At home she does take formoterol, Spiriva and budesonide. During her hospitalization I will hold off on the Spiriva because of the DuoNeb. The etiology of this current exacerbation is not viral according to our PCR and may in fact be exacerbation of mild bronchectasis with a bacteria. She has been treated several times antibiotics in the outpatient setting, and I now have her on azithromycin, nebs and solumedrol. I am noting that she failed doxycycline the last week of March, and 10 days of Augmentin in the beginning of April.She really does not have any reason to be having Pseudomonas. She lives on her own, does not live in a residential facility. She has not been hos pitalized up until this hospitalization. Plan: stop solumedrol IV and change to medrol tapering for the next few days. Continue DuoNeb, budesonide, and albuterol as needed She has been on 3 days of azithromycin and 500 mg stopped after 3 days. She is doing better and I don't feel I need to expand to gram neg coverage, so I will continue po 250 mg for 2 more days and reassess Encourage her to get out of bed and I've asked to nurse to emphasize that. Check sputum culture (2) Hypoxia Conclusion/Plan: Supplemental Oxygen to maintian sat > 91 % She was consistently on 2 L. She is improving in that she is on 1 liter today. Will continue to supplement until able to be on room air. (3) Leukocytosis improving Conclusion/Plan: White cell count was elevated April 21. She was 11,000. With ER evaluation 05/10 she went up to 20. Today she is come down to 12.0 She is felt to have probable demargination with steroids given in the ED and at home. Not necessarily associated with bacterial infection. Nevertheless she is on empiric antibiotics and she is responding to them. CT shows pneumonia. She did receive 1 dose of Rocephin in the emergency room. As well as azithromycin. I am continuing azithro po for now. Qualifiers: Leukocytosis type: unspecified Qualified Code(s): D72.829 - Elevated white blood cell count, unspecified (4) Hyponatremia Conclusion/Plan: Attributed to hypovolemia. With hydration in the ED and on MedSurg overnight sodium was gone from 129-131 then back down to 128 today. She will complete 4 L of normal saline at 3:30 today. The telemed hospitalist says that he would recommend discussion with the renal team. However this is a critical access hospital. We do not have specialty services here. Creatinine is steady at 0.5. This is her baseline. Now that she is more awake, taking more p.o., I will not be resuming IV fluids. Reassess tomorrow morning.
[2022-05-13] MEDS ORDERED: methylPREDNISolone 4 MG TABLET PO SCH (13:00)
[2022-05-13] MEDS: ATORVASTATIN 10 MG TABLET PO SCH (20:33)
[2022-05-13] MEDS: ACETAMINOPHEN 325 MG TABLET PO PRN (23:33)
[2022-05-14 05:37] LABS: BASOPHILS % (AUTO) 0.1 %; EOSINOPHILS % (AUTO) 0.1 %; HCT - HEMATOCRIT 33.8 % (37.0-47.0); HGB - HEMOGLOBIN 11.6 g/dL (12.0-16.0); LYMPHOCYTES # (AUTO) 1.7 10^3/uL (1.5-3.5); LYMPHOCYTES % (AUTO) 11.2 %; MEAN CORPUSCULAR HEMOGLOBIN 29.2 pg (27.0-31.0); MEAN CORPUSCULAR HGB CONC 34.3 g/dL (32.0-36.0); MEAN CORPUSCULAR VOLUME 85.1 fL (81.0-99.0); MEAN PLATELET VOLUME 8.9 fL (7.9-10.8); MONOCYTES # (AUTO) 0.8 10^3/uL (0.0-1.0); MONOCYTES % (AUTO) 5.6 %; NEUTROPHILS # (AUTO) 12.3 10^3/uL (1.5-6.6); NEUTROPHILS % (AUTO) 82.4 %; PLT - PLATELET COUNT 325 10^3/uL (130-450); RED BLOOD COUNT 3.97 10^6/uL (4.20-5.40); RED CELL DISTRIBUTION WIDTH 12.2 % (12.0-15.0); WHITE BLOOD COUNT 14.9 x10^3/uL (4.8-10.8)
[2022-05-14 05:44] LABS: CALCIUM 8.6 mg/dL (8.5-10.3); CREATININE 0.5 mg/dL (0.4-1.0); POTASSIUM 3.2 mmol/L (3.5-5.0)
[2022-05-14] MEDS: FORMOTEROL FUMARATE NEB 20 MCG/2 ML INH SCH ×2 (07:47→19:11)
[2022-05-14] MEDS: IPRATROPIUM/ALBUTEROL 3 ML NEB INH SCH ×4 (07:47→19:11)
[2022-05-14] MEDS: BUDESONIDE 0.5 MG/2 ML NEB INH SCH ×2 (07:47→19:11)
[2022-05-14] MEDS ORDERED: methylPREDNISolone 4 MG TABLET PO SCH (08:00)
[2022-05-14] MEDS: ASCORBIC ACID 500 MG TABLET PO SCH (09:28)
[2022-05-14] MEDS: AZITHROMYCIN 250 MG TABLET PO SCH (09:28)
[2022-05-14] MEDS: CALCIUM CARBONATE CHEW 500 MG TABLET PO SCH (09:29)
[2022-05-14] MEDS: FLUoxetine 10 MG CAPSULE PO SCH (09:30)
[2022-05-14] MEDS: guaiFENesin 600 MG TABLET PO SCH ×2 (09:30→21:47)
[2022-05-14] MEDS: CYANOCOBALAMIN 500 MCG TABLET PO SCH (09:31)
[2022-05-14] MEDS: MAGNESIUM OXIDE 400 MG TABLET PO SCH (09:31)
[2022-05-14] MEDS: LORATADINE 10 MG TABLET PO SCH (09:31)
[2022-05-14] MEDS: POTASSIUM CHLORIDE 20 MEQ TABLET PO SCH ×2 (10:11→17:10)
[2022-05-14] MEDS: SODIUM CHLORIDE FLUSH 0.9% 10 ML SYRINGE IVP SCH ×2 (10:11→17:11)
[2022-05-14] MEDS: MONTELUKAST 10 MG TABLET PO SCH (10:11)
--- NOTE | 2022-05-14 11:40 | PROVIDER PROGRESS NOTE ---
Progress Note May 14, 2022 11:35 AM Patient was seen this morning and she is in good spirits. Sitting up. Hoping that she can go home. When she is at rest she does well. No tachypnea no increased respiratory effort. I observed her sitting up, going from supine to sitting and was already starting to get tachypneic. Then she got up to go to the bathroom and get back in bed and wheezing was severe, tachypnea was moderate at 24, and it took her 10 minutes to get comfortable again. I had a 1 hour conversation with her daughter yesterday evening. Updated her on her mom's course. Shared with her my concerns about this unresolved pneumonia that is been going on for a month with failure of multiple antibiotics. The fact that she has had lifelong cough, and no true sequential pulmonary follow- up. She is been seen once with pulmonary in the past, allergy and immunology once recently. Daughter plans on eventually having her mom with 24/7 care in her home. She would like to let mom age and place. Otherwise there is no fever. Blood pressure is normal. At rest she is 95% on room air. She denies chest pain, cough is nonproductive. No abdominal pain. Active Medications Acetaminophen (Acetaminophen 325 Mg Tablet) 650 mg PO Q4HR PRN PRN Reason: Pain 1 to 4, or Fever Last Admin: 05/13/22 23:33 Dose: 650 mg Hydrocodone Bitart/Acetaminophen (Hydrocod/Acetam 5/325 Mg Tablet) 1 tab PO Q4HR PRN PRN Reason: Pain 5 to 7 Albuterol/Ipratropium (Ipratropium/Albuterol 3 Ml Neb) 3 ml INH RTQID [facility] Last Admin: 05/14/22 10:54 Dose: 3 ml Ascorbic Acid (Ascorbic Acid 500 Mg Tablet) 500 mg PO DAILY [facility] Last Admin: 05/14/22 09:28 Dose: 500 mg Atorvastatin Calcium (Atorvastatin 10 Mg Tablet) 10 mg PO HS [facility] Last Admin: 05/13/22 20:33 Dose: 10 mg Azithromycin (Azithromycin 250 Mg Tablet) 250 mg PO DAILY [facility] Stop: 05/15/22 09:01 Last Admin: 05/14/22 09:28 Dose: 250 mg Budesonide (Budesonide 0.5 Mg/2 Ml Neb) 0.5 mg INH RTBID [facility] Last Admin: 05/14/22 07:47 Dose: 0.5 mg Calcium Carbonate/Glycine (Calcium Carbonate Chew 500 Mg Tablet) 500 mg PO DAILY [facility] Last Admin: 05/14/22 09:29 Dose: 500 mg Cyanocobalamin (Cyanocobalamin 500 Mcg Tablet) 500 mcg PO DAILY [facility] Last Admin: 05/14/22 09:31 Dose: 500 mcg Fluoxetine HCl (Fluoxetine 10 Mg Capsule) 40 mg PO DAILY [facility] Last Admin: 05/14/22 09:30 Dose: 40 mg Formoterol Fumarate (Formoterol Fumarate Neb 20 Mcg/2 Ml) 20 mcg INH RTBID [facility] Last Admin: 05/14/22 07:47 Dose: 20 mcg Guaifenesin (Guaifenesin 600 Mg Tablet) 1,200 mg PO BID [facility] Last Admin: 05/14/22 09:30 Dose: 1,200 mg Hydromorphone HCl (Hydromorphone 0.5 Mg/0.5 Ml Syringe) 0.5 mg IVP Q2H PRN PRN Reason: Pain 8 to 10 Ibuprofen (Ibuprofen 400 Mg Tablet) 400 mg PO Q6HR PRN PRN Reason: PAIN Loratadine (Loratadine 10 Mg Tablet) 10 mg PO DAILY [facility] Last Admin: 05/14/22 09:31 Dose: 10 mg Magnesium Oxide (Magnesium Oxide 400 Mg Tablet) 400 mg PO DAILY [facility] Last Admin: 05/14/22 09:31 Dose: 400 mg Methylprednisolone (Methylprednisolone 4 Mg Tablet) 8 mg PO DAILYWM [facility] Last Admin: 05/14/22 10:23 Dose: 8 mg Methylprednisolone (Methylprednisolone 4 Mg Tablet) 4 mg PO DAILYWM [facility] Montelukast Sodium (Montelukast 10 Mg Tablet) 10 mg PO DAILY [facility] Last Admin: 05/14/22 10:11 Dose: 10 mg Ondansetron HCl (Ondansetron 4 Mg/2 Ml Vial) 4 mg IVP Q6HR PRN PRN Reason: Nausea / Vomiting Potassium Chloride (Potassium Chloride 20 Meq Tablet) 20 meq PO BIDWM [facility] Last Admin: 05/14/22 10:11 Dose: 20 meq Sodium Chloride (Sodium Chloride Flush 0.9% 10 Ml Syringe) 10 ml IVP PRN PRN PRN Reason: NEEDED PER PROVIDER ORDERS Sodium Chloride (Sodium Chloride Flush 0.9% 10 Ml Syringe) 10 ml IVP 0100,0900,1700 [facility] Last Admin: 05/14/22 10:11 Dose: 10 ml Zolpidem Tartrate (Zolpidem 5 Mg Tablet) 5 mg PO QPM PRN PRN Reason: Insomnia Albuterol Sulfate [Proair Hfa Inhaler] 1 - 2 puffs IH Q4HR PRN 04/14/18 Cholecalciferol (Vitamin D3) [Vitamin D3] 1,000 unit PO DAILY 04/14/18 FLUoxetine [PROzac] 40 mg PO DAILY 04/14/18 Fluticasone [Flonase] 1 sprays GAEL DAILY PRN 04/14/18 Glucosamine HCl/Chondroitin Liz [Endur-Flex Sr Tablet] 1 each PO DAILY 04/14/18 Atorvastatin [Lipitor] 10 mg PO HS 04/21/22 Budesonide/Formoterol Fumarate [Symbicort 160-4.5 Mcg Inhaler] 2 puffs INH BID 04/21/22 Montelukast [Singulair] 10 mg PO QPM 04/21/22 Tiotropium [place] [Spiriva Respimat] 2 puffs INH DAILY 04/21/22 Ascorbic Acid [Vitamin C] 500 mg PO DAILY 05/12/22 Biotin 1 tab PO DAILY 05/12/22 Calcium Carbonate [Tums (Calcium Carbonate 500mg)] 500 mg PO DAILY 05/12/22 Cyanocobalamin [Vitamin B-12] 1 tab PO DAILY 05/12/22 Echinacea Purpurea Aerial Ext [Echinacea] 1 cap PO DAILY PRN 05/12/22 Ginkgo Biloba [place] Extract [Ginkgo Biloba] 1 cap PO DAILY 05/12/22 Ipratropium/Albuterol [Duoneb] 3 ml INH Q6H PRN 05/12/22 Loratadine [All Day Allergy Relief] 10 mg PO DAILY 05/12/22 Magnesium Oxide 1 tab PO DAILY 05/12/22 Melatonin/Pyridoxine [Melatonin 5 mg Tablet] 1 tab PO QPM PRN 05/12/22 Metronidazole 1% Gel [Metrogel] 1 applic TOP DAILY 05/12/22 Turmeric 1 cap PO DAILY 05/12/22 Ubidecarenone [Co Q-10] 1 cap PO DAILY 05/12/22 Vitamin B Complex 1 tab PO DAILY 05/12/22 Zinc Sulfate 220 mg PO DAILY 05/12/22 exam: Temperature is 36.3. Heart rate 78. Respirations 17. 95% on room air. She has been at rest for 30 minutes. Neck is supple Lungs had severe wheezing after exertion, and now have faint scattered end expiratory whistling. At rest. Occasional rhonchi. Comfortable at rest. Regular rate and rhythm Abdomen is soft, nontender. She is eating 25 to 50% of her food. She had a bowel movement yesterday and a bowel movement today. Extremities have no edema Labs today with mild hyponatremia of 131. Improved from yesterday's 128. Potassium is 3.2. BUN and creatinine normal and random glucose 133. White cell count continues to be elevated at 14.9. She was admitted to 20.2 and then came down to 12. Today she is a little bit higher. Preliminary respiratory culture done and she has many white cells, few gram- positive cocci, culture in progress. Assessment/plan (1) COPD exacerbation With multifocal pneumonia, possible bronchiectasis Impression: This [place] lady has had long-term problems with her lungs for decades of a chronic daily cough. She has been treated with various antibiotics, antiallergy medications, inhalers. 1 pulmonary visit that I can see and 1 allergy immunology visit that I can see. Current episode has been an exacerbation of carli patterson over a month. Has failed multiple different antibiotics in the outpatient setting since March. Here I have resumed her home medicines but I have resumed them in inhalable form. So she is on Perforomist, budesonide, DuoNeb. I have held the Spiriva because of the DuoNeb. I would recommend that she not get Spiriva and DuoNeb in the outpatient setting. She is also on Singulair. Solu-Medrol IV has been changed to Medrol tapering starting May 13. While she has improved from admission, and is much better at rest, she still has significant wheezing with exertion. Plan: Continue current nebulizers, azithromycin p.o., and review sputum culture when it becomes available. I will also ask respiratory nursing to document if she desats with exertion since physical exam worsens with exertion. She is not nearly at baseline where she is described as an active individual still able to take care of her self. With what I am seeing today she is not able to do that. (2) Hypoxia Conclusion/Plan: She is down to room air today. Max use was 2 L. We will have respiratory therapy document if she is desating. She is certainly wheezing with exertion. I plan on keeping her 1 more day to allow wheezing to stabilize more. She lives alone, has good support with friends and neighbors and daughter lives in [place]. Daughter is currently making plans to get mom more care. (3) Leukocytosis Conclusion/Plan: White cell count was elevated April 21. She was 11,000. With ER evaluation 05/10 she went up to 20. By May 13 she came down to 12,000. Today she came back up again. Most likely demargination from the Medrol I gave her. Clinically she is not having a fever, she is not worse. She is on empiric antibiotic therapy for this multifocal pneumonia. She received 1 dose of Rocephin in the emergency room, 3 doses of IV azithromycin and now on 250 of azithromycin. No change in management at this time Leukocytosis type: unspecified Qualified Code(s): D72.829 - Elevated white blood cell count, unspecified (4) Hyponatremia Conclusion/Plan: Attributed to hypovolemia. With hydration in the ED and on MedSurg overnight sodium was gone from 129-131 then back down to 128 05/13. . She will complete 4 L of normal saline at 3:30 05/13. The telemed hospitalist says that he would recommend discussion with the renal team. However this is a critical access hospital. We do not have specialty services here. Creatinine is steady at 0.5. This is her baseline. Now that she is more awake, taking more p.o., I will not be resuming IV fluids. Reassess tomorrow morning.I did not resume IV fluids. Sodium is improved. I will supplement her hypokalemia orally
[2022-05-14] MEDS: ATORVASTATIN 10 MG TABLET PO SCH (21:46)
[2022-05-15] MEDS: SODIUM CHLORIDE FLUSH 0.9% 10 ML SYRINGE IVP SCH ×2 (01:09→08:21)
[2022-05-15 05:30] LABS: BASOPHILS % (AUTO) 0.2 %; EOSINOPHILS # (AUTO) 0.3 10^3/uL (0.0-0.7); EOSINOPHILS % (AUTO) 2.2 %; HCT - HEMATOCRIT 37.6 % (37.0-47.0); LYMPHOCYTES # (AUTO) 1.9 10^3/uL (1.5-3.5); LYMPHOCYTES % (AUTO) 16.5 %; MEAN CORPUSCULAR HEMOGLOBIN 29.5 pg (27.0-31.0); MEAN CORPUSCULAR HGB CONC 34.6 g/dL (32.0-36.0); MEAN CORPUSCULAR VOLUME 85.5 fL (81.0-99.0); MEAN PLATELET VOLUME 8.7 fL (7.9-10.8); MONOCYTES # (AUTO) 0.9 10^3/uL (0.0-1.0); MONOCYTES % (AUTO) 7.8 %; NEUTROPHILS # (AUTO) 8.2 10^3/uL (1.5-6.6); NEUTROPHILS % (AUTO) 72.2 %; PLT - PLATELET COUNT 360 10^3/uL (130-450); RED CELL DISTRIBUTION WIDTH 12.5 % (12.0-15.0); WHITE BLOOD COUNT 11.4 x10^3/uL (4.8-10.8)
[2022-05-15 05:41] LABS: CALCIUM 8.7 mg/dL (8.5-10.3); CREATININE 0.5 mg/dL (0.4-1.0); POTASSIUM 3.4 mmol/L (3.5-5.0)
[2022-05-15] MEDS: FORMOTEROL FUMARATE NEB 20 MCG/2 ML INH SCH (06:18)
[2022-05-15] MEDS: BUDESONIDE 0.5 MG/2 ML NEB INH SCH (06:18)
[2022-05-15] MEDS: IPRATROPIUM/ALBUTEROL 3 ML NEB INH SCH ×3 (06:18→15:15)
[2022-05-15] MEDS ORDERED: methylPREDNISolone 4 MG TABLET PO SCH (08:00)
[2022-05-15] MEDS: POTASSIUM CHLORIDE 20 MEQ TABLET PO SCH (08:20)
[2022-05-15] MEDS: FLUoxetine 10 MG CAPSULE PO SCH (08:20)
[2022-05-15] MEDS: guaiFENesin 600 MG TABLET PO SCH (08:20)
[2022-05-15] MEDS: AZITHROMYCIN 250 MG TABLET PO SCH (08:21)
[2022-05-15] MEDS: CALCIUM CARBONATE CHEW 500 MG TABLET PO SCH (08:21)
[2022-05-15] MEDS: LORATADINE 10 MG TABLET PO SCH (08:21)
[2022-05-15] MEDS: MAGNESIUM OXIDE 400 MG TABLET PO SCH (08:21)
[2022-05-15] MEDS: ASCORBIC ACID 500 MG TABLET PO SCH (08:21)
[2022-05-15] MEDS: MONTELUKAST 10 MG TABLET PO SCH (08:21)
[2022-05-15] MEDS: CYANOCOBALAMIN 500 MCG TABLET PO SCH (08:21)
[2022-05-15] MEDS: ACETAMINOPHEN 325 MG TABLET PO PRN (10:18)
--- NOTE | 2022-05-15 11:06 | Discharge Plan ---
Discharge Plan Problem Reviewed?: Yes Disposition: Home, Self Care Condition: Stable Diet: Regular Activity Restrictions: Activity as Tolerated Shower Restrictions: No Driving Restrictions: Yes (no driving) Health Concerns: You have a history of a chronic cough with chronic sinus congestion and postnasal drip. You had this your life but it had gotten very severe to the point that you were finally seen by your doctors in late 2007 for it. Your chest x-ray has been abnormal since that time and has changes of scarring or thickening of the bronchial lines. You were referred to Pulmonology (a lung specialist) at [facility], Dr. Sandoval. You continued to have cough, sinusitis, and have been seen by ear nose and throat as well. You then saw a different Pulmonology again in January 2018 at the [facility]. And your body persisted in having wheezing and coughing. This year the coughing and wheezing got to the point that you needed to be seen in clinic on April 14. A chest x-ray showed pneumonia and you were given steroids and doxycycline. You did not get better from that and you were seen in the emergency room April 21. You were given Augmentin, Atrovent and Decadron for that. You did not get better and you were seen in clinic May 01. They referred you to an social work professor with an ENT clinic because they felt this may be allergies and not infection. You had completed antibiotics at home, and you had started to feel better but you still had a deep, productive cough. On May 06 you sere seen in clinic again because you were getting worse again. You were sent home with more medication. On May 09 you called your clinic and you told them you were having chills. They asked you to go to the emergency room, but you did not come to the emergency room until May 11. What we found was pneumonia in multiple patches on both sides of your lung. But you did not have COVID and your respiratory panel was negative for influenza or RSV. We treated you as most likely viral pneumonia, but just to make sure we were not missing anything, we gave you antibiotics. You still have cough, and wheezing, but have improved tremendously. You have not needed any oxygen since May 13. Plan of Treatment: 1. Please see your primary care provider in follow-up. She will need to refer you to a director of grants again. I would like you to be evaluated for bronchiectasis, and I would also like them to do something called a diffusion capacity with pulmonary function studies. 2. Because of your difficulty breathing, I have changed your inhalers from a handheld inhaler to nebulized inhaler. As such your Symbicort has been changed to the same medicine but inhaled form with her nebulizer. Your DuoNeb will continue. Please do not take Spiriva on top of DuoNeb. It will give you too much ipratropium if you take both DuoNeb and Spiriva. 3. You are worried about living at home alone. You are considering moving into a correction facility temporarily until you get your strength back. Here you are able to get up and walk to the bathroom, feed yourself, dress herself. If you do want to go to a fdc for respite care, your primary care provider, Maisha Hooks, will have to write those orders. It will be self- pay. 4. The long-term plan as you age in place 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 I think that is an excellent start. Care Goals: Right now your goal is centered around not being so short of breath. It frightened you to live alone and be so tired and short of breath. Please consider going to an exercise program with people who have emphysema and asthma. It is called cardiopulmonary rehab and I think you would do well there. Assessment: Patient is alert, oriented, able to make her own decisions. Follow-Up Care: [facility] - Pulmonary No Smoking: If you smoke, Please STOP! Call for help. Follow-up with: Estelle Hooks PA-C [Provider Admit Priv/Credential] -
--- NOTE | 2022-05-15 11:37 | DISCHARGE SUMMARY ---
"Discharge Summary Admit Date: 05/11/22 Discharge Date: 05/15/22 Discharging Provider: Cony Zelaya MD Primary Care Provider: MAVIS Rae Code Status: Attempt Resuscitation Condition at Discharge: Fair Discharge Disposition: 01 Home, Self Care - DIAGNOSES Discharge Diagnoses with Status of Each Condition: 1. COPD exacerbation 2. Hypoxia 3. Multifocal pneumonia 4. Possible bronchiectasis 5. Leukocytosis 6. 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, has not seen a lung doctore, currently on appropriate meds, being admitted with acute on chronic COPD exacerbation Patient denies any fevers, no chills, no other active complaints Patieint is otherwise healthy, lives along, drives a car and has quite a few friends SHe was given multiple nebs in ER but still reuqires O2 and still is requiring supplemenatl Ox and due to this reason will admit for observation - Past Medical History Cardiovascular: reports: High cholesterol, Atrial fibrillation Respiratory: reports: Asthma, COPD Neuro: reports: None Endocrine/Autoimmune: reports: None GI: reports: None PREPARATION ROOM WORKER: reports: None : reports: None HEENT: reports: None Psych: reports: Depression Musculoskeletal: reports: Osteoarthritis Derm: reports: Rosacea MRSA Hx?: No - Past Surgical History /PREPARATION ROOM WORKER: reports: Hysterectomy Cardiovascular: reports: Other - CONSULTS | PROCEDURES Procedures: 1. Chest x-ray does not show pleural effusions or pneumothorax. Increased interstitial markings bilaterally which appear chronic. No significant interval changes from previous chest x-rays 2. Chest CT has multifocal patchy pulmonary opacities predominantly within the upper and midlung suspicious for multifocal pneumonia. She has a 6 mm pulmonary nodule present at the lateral left lung base. Bronchiectatic airways present in the dependent lungs bilaterally. Heart size normal. 3. Respiratory culture with normal chema - HOSPITAL COURSE Hospital Course: I was able to review her outpatient medical record with [facility]. She developed a chronic cough for years that was associated with chronic sinus congestion and postnasal drip. The cough increase in severity and frequency by late 2007. She has never smoked. Never had silica or asbestosis exposure. No TB. 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 July 2008 spirometry showed an FEV1 of 2.01 (99%), FVC of 2.5 (94%), and an FEV1/FVC of 78%. Chest x-ray had diffuse pulmonary infiltrates. She was referred to Dr. Sanodval, pulmonology at [facility]. He assessed her as upper airways cough and sinusitis and treated her with nasal steroids, other medical issues came to the forefront with dizziness, palpitations and there is no further pulmonology note that I can find in the outpatient records. Told she has asthma. [facility] Pulmonology in January 2018. FVC was 2.86. FEV1 2.45. FEV1 FVC 0.86. Flow volume loop was normal, normal spirometry. She was wheezing. She was started on Breo. Albuterol. And told to get yearly flu shots. Allergy and immunology May 2021 with a history of distal asthma and eczema. She was diagnosed as having persistent asthma and was continued on Advair, Singulair, as needed albuterol. With all these evaluations there is no comment on interstitial pulmonary fibrosis seen on Chest Xray. She was seen in clinic April 14 and a chest x-ray showed pneumonia. Treatment was steroids and doxycycline. Emergency room April 21 with 2 weeks of cough and shortness of breath and worsening asthma>>Augmentin and Atrovent and Decadron antibiotics with that ER visit. Since that time she really has not improved. Phlegm started increasing in amount as well as changing in color. And she developed a yeast infection in her mouth. Clinic May 01. The clinic felt that she had reactive airways disease and she was referred to an adult basic education instructor. Antibiotics were completed, she was feeling better but she still had a deep, productive cough. Symbicort was added, Spiriva was added, and Atrovent was continued. Note that Spiriva in combination with Atrovent is usually contraindicated because of its anticholinergic effects. She was to follow-up in 1 week with her usual primary care provider MAVIS Hooks. May 06 she was seen in clinic because she was not getting any better. They were able to speak to her May 09 and she was now describing chills and yellow phlegm. They referred her to the ED. However she did not come to the emergency room until May 11. April 14 x-ray had a patchy left basilar opacity. Coarse interstitial markings. A curvilinear object was probably an external catheter or tube of some type. In April 21 chest x-ray had improved appearance of the previous left basilar opacity but slightly increased opacity noted within the right base. Chest x-ray in the emergency room last night had no significant interval change. In addition the patient has received azithromycin, Rocephin and Singulair. She continues to get nebs. Past medical history: 1. Osteoarthritis of the hands. Feet with bunions. 2. Early satiety and weight lost resulted in CT abdomen November 2006 and May 2007. She had lymphadenopathy and free fluid in the pelvis, uterus was absent, arthritis seen in the lumbar spine. 6 mm hemangioma in the right hepatic lobe. Indeterminate low-attenuation lesion in the left hepatic lobe. 1.6 x 1.6 lobulated low-tension lesion in the spleen. Small left renal cyst. Appetite c malinda back. No further follow-up. 3. Conductive hearing loss 4. Abdominal pain work-up 2006 with the EGD, hepatobiliary study. Mild to moderate gastritis distal part of the stomach. Had low ejection fraction for the gallbladder at 21.3% (normal is 35%) with gallbladder dyskinesia. 5. Cellophane maculopathy 6. Followed by [facility], Dr. Iam Narayan. Chronic palpitations, history of atrial tachycardia in the past, PVCs, episode of SVT May 2018 status post AV chula modification ablation September 2018. Able to come off digoxin 2018. Stress echo August 2018 negative for inducible ischemia. Ejection fraction 60 to 65%. 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 All of this leads to a slightly ataxic gait. 7. Hyperlipidemia with total cholesterol 185, triglycerides 66, HDL 78, LDL 93. 8. Chronically elevated total bilirubin 9. Chronic hyponatremia 10. Dandy-Walker cyst 11. Cataract extractions 12. Hysterectomy The day after admission she was very fatigued, mumbling, very lethargic. She is gradually improved to the point that by discharge she is awake, alert, reading her book. Watching TV. Interactive. She is still wheezing at baseline and at rest. But she no longer needs oxygen. She does get easily decompensated with getting up to walk to the bathroom and will begin wheezing, become tachypneic for up to 5 minutes and require rest. However oxygen desat test shows no hypoxia with this. She was treated empirically with antibiotics, continued on steroids. Nebulizers were changed to inhaled long-acting bronchodilators and inhaled steroids. Spiriva was not continued since she is on DuoNeb. I have changed everything over to nebulized solution and no handheld inhalers. Sputum culture showed normal chema. CT scan is as above. I would recommend that she be seen in 2 weeks by primary care provider. Please refer her to pulmonology, repeat pulmonary function studies and DLCO. She has a 6 mm nodule and she may need follow-up radiology for that. At discharge she is an alert, lively elderly female. Temperature is 36.6. Heart rate is 97. Blood pressure 133/82. Respirations 20. 93% on room air. She is a slightly nasal tone of voice, but is comfortable in bed and does not lose her breath with having a normal conversation. It is only when she tries to go from sitting to supine and then walks a few feet that she starts to wheeze we will without a stethoscope. At rest she still has bilateral faint scattered wheezing. Regular rate and rhythm. A benign abdomen. No edema. Greater than 30 minutes was spent coordinating discharge. - ALLERGIES Allergies/Adverse Reactions: Allergies Allergy/AdvReac Type Severity Reaction Status Date / Time latex Allergy Unknown Verified 11/05/20 09:36 milk Allergy Unknown Verified 11/05/20 09:36 oats Allergy Respiratory Verified 05/12/22 11:00 Sulfa (Sulfonamide Allergy Unknown Verified 11/05/20 09:36 Antibiotics) terfenadine [From Seldane] Allergy Unknown Verified 11/05/20 09:36 tannic acid Allergy Respiratory Uncoded 03/10/20 12:43 - MEDICATIONS Home Medications: Ambulatory Orders Medication Instructions Recorded Confirmed Albuterol Sulfate [Proair Hfa 1 - 2 puffs IH Q4HR PRN 04/14/18 05/12/22 Inhaler] Cholecalciferol (Vitamin D3) 1,000 unit PO DAILY 04/14/18 05/12/22 [Vitamin D3] FLUoxetine [PROzac] 40 mg PO DAILY 04/14/18 05/12/22 Fluticasone [Flonase] 1 sprays GAEL DAILY PRN 04/14/18 05/12/22 Glucosamine HCl/Chondroitin Liz 1 each PO DAILY 04/14/18 05/12/22 [Endur-Flex Sr Tablet] Atorvastatin [Lipitor] 10 mg PO HS 11/01/22 11/22/22 Montelukast [Singulair] 10 mg PO QPM 04/21/22 05/12/22 Ascorbic Acid [Vitamin C] 500 mg PO DAILY 05/12/22 05/12/22 Biotin 1 tab PO DAILY 05/12/22 05/12/22 Calcium Carbonate [Tums (Calcium 500 mg PO DAILY 05/12/22 05/12/22 Carbonate 500mg)] Cyanocobalamin [Vitamin B-12] 1 tab PO DAILY 05/12/22 05/12/22 Echinacea Purpurea Aerial Ext 1 cap PO DAILY PRN 05/12/22 05/12/22 [Echinacea] Ginkgo Biloba [place] Extract [Ginkgo 1 cap PO DAILY 05/12/22 05/12/22 Biloba] Loratadine [All Day Allergy Relief] 10 mg PO DAILY 05/12/22 05/12/22 Magnesium Oxide 1 tab PO DAILY 05/12/22 05/12/22 Melatonin/Pyridoxine [Melatonin 5 1 tab PO QPM PRN 05/12/22 05/12/22 mg Tablet] Metronidazole 1% Gel [Metrogel] 1 applic TOP DAILY 05/12/22 05/12/22 Turmeric 1 cap PO DAILY 05/12/22 05/12/22 Ubidecarenone [Co Q-10] 1 cap PO DAILY 05/12/22 05/12/22 Vitamin B Complex 1 tab PO DAILY 05/12/22 05/12/22 Zinc Sulfate 220 mg PO DAILY 05/12/22 05/12/22 Budesonide [Pulmicort] 0.5 mg INH BID #60 ml 05/15/22 Formoterol Fumarate [Perforomist] 20 mcg IH BID #60 ml 05/15/22 Ipratropium/Albuterol [Duoneb] 3 ml INH Q6H PRN #120 ml 05/15/22 Ipratropium/Albuterol [Duoneb] 3 ml INH RTQID ml 05/15/22 guaiFENesin [Mucinex] 1,200 mg PO BID tab 05/15/22 - LABS Result Diagrams: 05/15/22 05:04 05/15/22 05:04 - SEPSIS Current Stage of Sepsis: Ruled out"
[2022-05-15 13:27] VITALS: BP 135/83
== END 2022-05-15 14:24 | disposition home or self-care (01) | DRG 190 ==
LOC: ED 16:32 → MS2 23:24 → OBSVTOIN 05-12 10:44
PROVIDERS: ADMIT Internal Medicine; ATTEND Specialist
DX: J44.1 Chronic obstructive pulmonary disease with (acute) exacerbation (principal); E87.1 Hypo-osmolality and hyponatremia; R11.10 Vomiting, unspecified; J18.9 Pneumonia, unspecified organism; R00.0 Tachycardia, unspecified; Z20.822 Contact with and (suspected) exposure to COVID-19; E87.0 Hyperosmolality and hypernatremia; J44.0 Chronic obstructive pulmonary disease with (acute) lower respiratory infection; D72.829 Elevated white blood cell count, unspecified; E78.00 Pure hypercholesterolemia, unspecified; I48.91 Unspecified atrial fibrillation; F32.A Depression, unspecified; M19.042 Primary osteoarthritis, left hand; M19.041 Primary osteoarthritis, right hand; M21.612 Bunion of left foot; M21.611 Bunion of right foot; R63.4 Abnormal weight loss; R68.81 Early satiety; H90.2 Conductive hearing loss, unspecified; Q03.1 Atresia of foramina of Magendie and Luschka; E80.6 Other disorders of bilirubin metabolism; Z68.24 Body mass index [BMI] 24.0-24.9, adult; Z79.899 Other long term (current) drug therapy; Z90.710 Acquired absence of both cervix and uterus; Z98.41 Cataract extraction status, right eye; Z98.42 Cataract extraction status, left eye
CPT/HCPCS: 36415; 71046; 71250; 80048; 80053; 83605; 85025; 87070; 87205; 87633; 94640; 94761; 96365; 96366; 96375; 99284; 99285; A9270; J7509; J7512; J7626

== ENCOUNTER 2022-05-16 16:55 | Emergency (ER) | payer MEDICARE, OTHER ==
--- OUTSIDE RECORDS SUMMARY | 2022-05-16 17:10 | EXTERNAL MEDICAL SUMMARY RPT | Continuity of Care Document ---
:1940 Author Organization [place] Address [address] [place], [place] [id number] Phone Allergies No information. Encounters No information. [...] wn) date) unknown) (unknown) (no (unknown) (unknown) [address] [place] [address] (units (unknown) date) unknown) (unknown) (no (unknown) (unknown) 2. Acute (units (unkno wn) date) compression unknown) fracture involving the superior endplate of L4 with marrow (unknown) (no (unknown) (unknown) [id number] (units (unkno wn) date) unknown) (unknown) (no (unknown) (unknown) 3. Old mild to (units (unknown) date) moderate wedge unknown) compression fracture L1. (unknown) (no (unknown) (unknown) Accession (units (unkn own) date) Number: unknown) [id number] (unknown) (no (unknown) (unknown) Age/Sex: 82 / F (units (unknown) date) Date of Service: unknown) (unknown) (no (unknown) (unknown) Alignment and (units ( unknown) date) Curvature: There unknown) is normal bony alignment. (unknown) (no (unknown) (unknown) An old mild to (units (unknown) date) moderate wedge unknown) compression fractures noted involving L1. (unknown) (no (unknown) (unknown) LISETTE Cole (units ( unknown) date) [id number] unknown) (unknown) (no (unknown) (unknown) Approved by: (units (u nknown) date) León Ball unknown) Corrina Zapata on 04/29/2022 at 14:39 (unknown) (no (unknown) (unknown) Bone Marrow: (units (u nknown) date) There is a mild unknown) to moderate acute compression fracture present (unknown) (no (unknown) (unknown) COMPARISON: (units (un known) date) None. unknown) (unknown) (no (unknown) (unknown) : 1940 (units (unknown) date) Acct:[id number] unknown) (unknown) (no (unknown) (unknown) Dictated by: [...] date) Excellent. unknown) (unknown) (no (unknown) (unknown) (units (unknown) date) unknown) (unknown) (no (unknown) [...] (unknown) date) neural foraminal unknown) stenosis and [id number] central canal (unknown) (no (unknown) (unknown) severe (units (unkno wn) date) left-sided neural unknown) foraminal stenosis. No central canal stenosis. (unknown) (no (unknown) (unknown) some moderate (units ( unknown) date) bilateral neural unknown) foraminal stenosis and [id number] central (unknown) (no (unknown) (unknown) spin echo [...]
--- NOTE | 2022-05-16 17:29 | ED Physician Documentation ---
History of Present Illness - Stated complaint Stated Complaint: LETHARGIC,SOA - Chief complaint Chief Complaint: Neuro - History obtained from History obtained from: Patient - History of Present Illness Pain level max: 0 Pain level now: 0 - Additonal information Additional information: Patient is a 82-year-old female who presents to the emergency department with increased work of breathing today. She was discharged yesterday from the hospital for COPD exacerbation and multifocal pneumonia. She is only using her nebulizer twice a day, rather than the prescribed 4 times per day. She is not using any oral steroids, only inhaled steroids. Unclear if she is on antibiotics or not. 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 : None HEENT: None Psych: Depression Musculoskeletal: Osteoarthritis Derm: Rosacea - Past Surgical History Past Surgical History: Yes /ROTARY RIG ENGINE OPERATOR: Hysterectomy Cardiovascular: Other - Present Medications Home Medications: Ambulatory Orders Medication Instructions Recorded Confirmed Albuterol Sulfate [Proair Hfa 1 - 2 puffs IH Q4HR PRN 04/14/18 05/12/22 Inhaler] Cholecalciferol (Vitamin D3) 1,000 unit PO DAILY 04/14/18 05/12/22 [Vitamin D3] FLUoxetine [PROzac] 40 mg PO DAILY 04/14/18 05/12/22 Fluticasone [Flonase] 1 sprays GAEL DAILY PRN 04/14/18 05/12/22 Glucosamine HCl/Chondroitin Liz 1 each PO DAILY 04/14/18 05/12/22 [Endur-Flex Sr Tablet] Atorvastatin [Lipitor] 10 mg PO HS 04/21/22 05/12/22 Montelukast [Singulair] 10 mg PO QPM 04/21/22 05/12/22 Ascorbic Acid [Vitamin C] 500 mg PO DAILY 05/12/22 05/12/22 Biotin 1 tab PO DAILY 05/12/22 05/12/22 Calcium Carbonate [Tums (Calcium 500 mg PO DAILY 05/12/22 05/12/22 Carbonate 500mg)] Cyanocobalamin [Vitamin B-12] 1 tab PO DAILY 05/12/22 05/12/22 Echinacea Purpurea Aerial Ext 1 cap PO DAILY PRN 05/12/22 05/12/22 [Echinacea] Ginkgo Biloba [place] Extract [Ginkgo 1 cap PO DAILY 05/12/22 05/12/22 Biloba] Loratadine [All Day Allergy Relief] 10 mg PO DAILY 05/12/22 05/12/22 Magnesium Oxide 1 tab PO DAILY 05/12/22 05/12/22 Melatonin/Pyridoxine [Melatonin 5 1 tab PO QPM PRN 05/12/22 05/12/22 mg Tablet] Metronidazole 1% Gel [Metrogel] 1 applic TOP DAILY 05/12/22 05/12/22 Turmeric 1 cap PO DAILY 05/12/22 05/12/22 Ubidecarenone [Co Q-10] 1 cap PO DAILY 05/12/22 05/12/22 Vitamin B Complex 1 tab PO DAILY 05/12/22 05/12/22 Zinc Sulfate 220 mg PO DAILY 05/12/22 05/12/22 Budesonide [Pulmicort] 0.5 mg INH BID #60 ml 05/15/22 Formoterol Fumarate [Perforomist] 20 mcg IH BID #60 ml 05/15/22 Ipratropium/Albuterol [Duoneb] 3 ml INH Q6H PRN #120 ml 05/15/22 Ipratropium/Albuterol [Duoneb] 3 ml INH RTQID ml 05/15/22 guaiFENesin [Mucinex] 1,200 mg PO BID tab 05/15/22 predniSONE [Deltasone] 40 mg PO DAILY #10 tablet 05/16/22 - Allergies Allergies/Adverse Reactions: Allergies Allergy/AdvReac Type Severity Reaction Status Date / Time latex Allergy Unknown Verified 11/05/20 09:36 milk Allergy Unknown Verified 11/05/20 09:36 oats Allergy Respiratory Verified 05/12/22 11:00 Sulfa (Sulfonamide Allergy Unknown Verified 11/05/20 09:36 Antibiotics) terfenadine [From Seldane] Allergy Unknown Verified 11/05/20 09:36 tannic acid Allergy Respiratory Uncoded 03/10/20 12:43 - Social History Does the pt smoke?: No Smoking Status: Never smoker Does the pt drink ETOH?: No Does the pt have substance abuse?: No - Immunizations Immunizations are current?: Yes - POLST Patient has POLST: No PD ED PE NORMAL - Vitals Vital signs reviewed: Yes - General General: Alert and oriented X 3, No acute distress - HEENT HEENT: Moist mucous membranes - Neck Neck: Supple, no meningeal sign - Cardiac Cardiac: RRR - Respiratory Respiratory: No respiratory distress, Other (minimal wheezing) - Abdomen Abdomen: Soft, Non tender, Non distended - Derm Derm: Warm and dry - Extremities Extremities: No edema - Neuro Neuro: Alert and oriented X 3 Results - Vitals Vitals: Vital Signs - 24 hr 05/16/22 05/16/22 05/16/22 17:02 17:50 18:04 Temperature 36.8 C Heart Rate 108 H 94 105 H Respiratory 23 20 24 Rate Blood Pressure 128/75 141/83 H O2 Saturation 95 92 05/16/22 05/16/22 19:07 19:22 Temperature 36.4 C L Heart Rate 102 H 90 Respiratory 26 H 24 Rate Blood Pressure 153/93 H O2 Saturation 94 Oxygen O2 Source Room air - Labs Labs: Laboratory Tests 05/16/22 05/16/22 18:56 18:56 WBC 31.2 H RBC 4.63 Hgb 13.6 Hct 38.7 MCV 83.6 MCH 29.4 MCHC 35.1 RDW 12.1 Plt Count 379 MPV 8.1 Neut # (Auto) 29.0 H Lymph # (Auto) 0.6 L [place] # (Auto) 0.6 Eos # (Auto) 0.6 Baso # (Auto) 0.1 Absolute Nucleated RBC 0.00 Band Neuts % (Manual) Not Reportable Abnorm Lymph % (Manual) Not Reportable Nucleated RBC % 0.0 Neutrophils # (Manual) Not Reportable Lymphocytes # (Manual) Not Reportable Monocytes # (Manual) Not Reportable Eosinophils # (Manual) Not Reportable Basophils # (Manual) Not Reportable Differential Comment MANUAL=AUTO DIFF Manual Slide Review Indicated WBC Morphology NORMAL APPEARANCE Platelet Estimate NORMAL (130-450,000) Platelet Morphology NORMAL APPEARANCE RBC Morph Micro Appear NORMAL APPEARANCE Sodium 123 L Potassium 3.4 L Chloride 90 L Carbon Dioxide 21 Anion Gap 12.0 BUN 12 Creatinine 0.5 Estimated GFR (MDRD) 118 Glucose 113 H Calcium 9.0 PD MEDICAL DECISION MAKING - ED course Complexity details: reviewed results, re-evaluated patient, considered differential, d/w patient, d/w family ED course: 82-year-old female with continued subjective dyspnea. Recently treated for COPD exacerbation with steroids. She has had multiple rounds of antibiotics. No fevers. She states she is only been using her nebulizer twice a day, I will increase this to 4 times per day. She does have hyponatremia. She states that this is chronic for her. Offered IV fluids, patient declines this. She is not requiring supplemental oxygen. She is ambulating without difficulty. She does have leukocytosis, but has been on steroids recently as well. A member of her adventism is here with her and is concerned about the patient continuing to live alone. The patient is currently alert and oriented x3, does not meet any criteria to forcibly remove her from her home. She does not want to leave her home. Resources were given to the patient and her friend regarding [facility], home caregivers, respite care, assisted living. They will follow-up with her doctor for further care. Patient is very well-appearing, nontoxic. Afebrile. I also labeled her nebulizer boxes with a marker so she knows how many times per day to use each nebulizer. Patient counseled regarding signs and symptoms for which I believe and urgent re-evaluation would be necessary. Patient with good understanding of and agreement to plan and is comfortable going home at this time This document was made in part using voice recognition software. While efforts are made to proofread this document, sound alike and grammatical errors may occur. Departure - Departure Disposition: 01 Home, Self Care Clinical Impression: COPD exacerbation, Hyponatremia Leukocytosis Qualifiers: Leukocytosis type: unspecified Qualified Code(s): D72.829 - Elevated white blood cell count, unspecified Condition: Good Instructions: ED COPD Flare Follow-Up: Estelle Hooks PA-C [Primary Care Provider] - Within 1 week Prescriptions: predniSONE [Deltasone] 40 mg PO DAILY #10 tablet Comments: Please make sure that you are using the medications as prescribed. You were given resources for home caregivers, respite care and other help at home if you feel that you need this. You can also follow-up with your doctor if you would like to explore an option such as assisted living facilities. Please return if you worsen. Your prescription was sent to [email or web address] in [place]. Discharge Date/Time: 05/16/22 19:25
[2022-05-16] MEDS: predniSONE 20 MG TABLET PO STA (17:43)
[2022-05-16] MEDS: IPRATROPIUM/ALBUTEROL 3 ML NEB INH STA (17:48)
[2022-05-16] MEDS ORDERED: predniSONE 20 MG TABLET PO STA (19:01)
[2022-05-16 19:02] LABS: BASOPHILS # (AUTO) 0.1 10^3/uL (0.0-0.1); BASOPHILS % (AUTO) 0.2 %; EOSINOPHILS # (AUTO) 0.6 10^3/uL (0.0-0.7); EOSINOPHILS % (AUTO) 1.9 %; HCT - HEMATOCRIT 38.7 % (37.0-47.0); HGB - HEMOGLOBIN 13.6 g/dL (12.0-16.0); LYMPHOCYTES # (AUTO) 0.6 10^3/uL (1.5-3.5); LYMPHOCYTES % (AUTO) 1.8 %; MEAN CORPUSCULAR HEMOGLOBIN 29.4 pg (27.0-31.0); MEAN CORPUSCULAR HGB CONC 35.1 g/dL (32.0-36.0); MEAN CORPUSCULAR VOLUME 83.6 fL (81.0-99.0); MEAN PLATELET VOLUME 8.1 fL (7.9-10.8); MONOCYTES # (AUTO) 0.6 10^3/uL (0.0-1.0); NEUTROPHILS % (AUTO) 93.2 %; PLT - PLATELET COUNT 379 10^3/uL (130-450); RED BLOOD COUNT 4.63 10^6/uL (4.20-5.40); RED CELL DISTRIBUTION WIDTH 12.1 % (12.0-15.0); WHITE BLOOD COUNT 31.2 x10^3/uL (4.8-10.8)
[2022-05-16] MEDS: ALBUTEROL NEB 2.5 MG/3 ML INH STA (19:09)
[2022-05-16 19:10] LABS: SLIDE REVIEW? Indicated
[2022-05-16 19:12] LABS: CREATININE 0.5 mg/dL (0.4-1.0); POTASSIUM 3.4 mmol/L (3.5-5.0)
[2022-05-16 19:23] VITALS: BP 153/93
[2022-05-16] MEDS: ONDANSETRON ODT 4 MG TABLET TL STA (19:25)
[2022-05-16 19:38] LABS: DIFFERENTIAL COMMENT MANUAL=AUTO DIFF; PLATELET ESTIMATE, MANUAL NORMAL (130-450,000) (NORMAL); PLATELET MORPHOLOGY NORMAL APPEARANCE (NORMAL); RBC MORPHOLOGY (MULTIPLE) NORMAL APPEARANCE (NORMAL); WBC MORPHOLOGY (MULTIPLE) NORMAL APPEARANCE (NORMAL)
== END 2022-05-16 19:25 | disposition home or self-care (01) ==
LOC: ED 16:55
DX: J44.1 Chronic obstructive pulmonary disease with (acute) exacerbation (principal); E87.1 Hypo-osmolality and hyponatremia; D72.829 Elevated white blood cell count, unspecified
CPT/HCPCS: 36415; 80048; 85025; 94640; 99283; 99284; J7512; Q0162

== ENCOUNTER 2022-05-20 09:19 | Outpatient (CLI) | payer MEDICARE, OTHER ==
[2022-05-20 09:57] LABS: ALBUMIN 3.1 g/dL (3.2-5.5); ALBUMIN/GLOBULIN RATIO 0.9 (1.0-2.2); ALKALINE PHOSPHATASE 123 IU/L (42-121); ALT ALANINE AMINOTRANSFERASE 37 IU/L (10-60); AST ASPARTATE AMINOTRANSFERASE 26 IU/L (10-42); BILIRUBIN,TOTAL 1.5 mg/dL (0.2-1.0); BUN - BLOOD UREA NITROGEN 10 mg/dL (6-20); CARBON DIOXIDE - CO2 27 mmol/L (21-32); CHLORIDE 94 mmol/L (101-111); CHOL/HDL RATIO 2.7 (<4.4); CHOLESTEROL 161 mg/dL; CREATININE 0.6 mg/dL (0.4-1.0); GFR - MDRD 96 (>89); GLUCOSE 115 mg/dL (70-100); HDL CHOLESTEROL 60 mg/dL; LDL CHOLESTEROL,CALCULATED 88 mg/dL; LDL/HDL RATIO 1.5 (<4.4); POTASSIUM 3.8 mmol/L (3.5-5.0); SODIUM 131 mmol/L (135-145); TOTAL PROTEIN 6.4 g/dL (6.7-8.2); TRIGLYCERIDES 65 mg/dL; VLDL CHOLESTEROL 13 mg/dL
== END 2022-05-20 09:20 | disposition home or self-care (01) ==
LOC: LAB 09:19
PROVIDERS: ATTEND Physician Assistant Medical
DX: E78.5 Hyperlipidemia, unspecified (principal)
CPT/HCPCS: 36415; 80053; 80061; 83721

== ENCOUNTER 2022-05-26 10:57 | Outpatient (CLI) | payer MEDICARE, OTHER ==
[2022-05-26 11:18] LABS: BASOPHILS # (AUTO) 0.1 10^3/uL (0.0-0.1); BASOPHILS % (AUTO) 0.2 %; EOSINOPHILS # (AUTO) 0.1 10^3/uL (0.0-0.7); EOSINOPHILS % (AUTO) 0.6 %; HCT - HEMATOCRIT 39.4 % (37.0-47.0); LYMPHOCYTES # (AUTO) 2.1 10^3/uL (1.5-3.5); LYMPHOCYTES % (AUTO) 10.6 %; MEAN CORPUSCULAR HEMOGLOBIN 29.1 pg (27.0-31.0); MEAN CORPUSCULAR VOLUME 88.3 fL (81.0-99.0); MEAN PLATELET VOLUME 7.9 fL (7.9-10.8); MONOCYTES # (AUTO) 1.5 10^3/uL (0.0-1.0); MONOCYTES % (AUTO) 7.5 %; NEUTROPHILS % (AUTO) 79.4 %; PLT - PLATELET COUNT 422 10^3/uL (130-450); RED BLOOD COUNT 4.46 10^6/uL (4.20-5.40); RED CELL DISTRIBUTION WIDTH 13.7 % (12.0-15.0); WHITE BLOOD COUNT 20.2 x10^3/uL (4.8-10.8)
[2022-05-26 11:21] LABS: SLIDE REVIEW? Indicated
[2022-05-26 11:31] LABS: ALBUMIN 3.3 g/dL (3.2-5.5); ALBUMIN/GLOBULIN RATIO 1.2 (1.0-2.2); BILIRUBIN,TOTAL 1.9 mg/dL (0.2-1.0); CALCIUM 9.2 mg/dL (8.5-10.3); CREATININE 0.5 mg/dL (0.4-1.0); POTASSIUM 3.8 mmol/L (3.5-5.0)
[2022-05-26 11:57] LABS: DIFFERENTIAL COMMENT MANUAL=AUTO DIFF; PLATELET ESTIMATE, MANUAL NORMAL (130-450,000) (NORMAL); PLATELET MORPHOLOGY NORMAL APPEARANCE (NORMAL); RBC MORPHOLOGY (MULTIPLE) 1+ SCHISTOCYTES (NORMAL); WBC MORPHOLOGY (MULTIPLE) NORMAL APPEARANCE (NORMAL)
--- NOTE | 2022-05-26 14:25 | XRAY Report ---
PROCEDURE: Chest 2 View X-Ray INDICATIONS: PNEUMONIA TECHNIQUE: 2 views of the chest were acquired. COMPARISON: 05/11/2022. FINDINGS: Surgical changes and devices: None. Lungs and pleura: No pleural effusions or pneumothorax. Lungs are clear of acute opacities. Bilater al interstitial prominence is stable. Mediastinum: Mediastinal contours are normal. Heart size is normal. Bones and chest wall: No suspicious bony abnormalities. Soft tissues appear unremarkable. IMPRESSION: No acute cardiopulmonary disease process. Reviewed by: Yolanda Haywood MD, PhD on 05/26/2022 2:24 PM PST Approved by: Yolanda Haywood MD, PhD on 05/26/2022 2:24 PM PST Station ID: [id number]
== END 2022-05-26 10:58 | disposition home or self-care (01) ==
LOC: DI 10:57
PROVIDERS: ATTEND Physician Assistant Medical
DX: J18.9 Pneumonia, unspecified organism (principal)
CPT/HCPCS: 36415; 80053; 85025

== ENCOUNTER 2022-09-11 08:33 | Emergency (ER) | payer MEDICARE, OTHER ==
--- NOTE | 2022-09-11 09:25 | XRAY Report ---
PROCEDURE: Chest 1 View X-Ray INDICATIONS: fall TECHNIQUE: One view of the chest was acquired. COMPARISON: CT 06/03/2022 FINDINGS: Surgical changes and devices: None. Lungs and pleura: Suspected linear scarring in the right lower lung. No dense consolidation. No pleu ral effusion. Possible small pulmonary nodules, for example the right apex measuring 4 to 5 mm. Mediastinum: Mediastinal contours appear normal. Heart size is normal. Bones and chest wall: No suspicious bony lesions. Overlying soft tissues appear unremarkable. IMPRESSION: No acute radiographic abnormality. Possible small lung nodules are present, for which CT follow-up co uld be obtained. Reviewed by: Johnson Shaw MD on 09/11/2022 9:24 AM PDT Approved by: Johnson Shaw MD on 09/11/2022 9:24 AM PDT Station ID: [id number]
--- NOTE | 2022-09-11 09:28 | XRAY Report ---
PROCEDURE: Ankle 3 View RT INDICATIONS: fall/pain TECHNIQUE: 3 views of the ankle were acquired. COMPARISON: None FINDINGS: Bones: Moderately displaced and comminuted lateral malleolus fracture, abdomen below the syndesmosis. Mildly displaced medial malleolus fracture. There may be some mortise widening. Minimal irregularity of the posterior malleolus could represent degenerative changes versus a nondisplaced injury. Plantar calcaneal enthesopathy. Soft tissues: Soft tissue swelling. IMPRESSION: Moderately displaced lateral and mildly displaced medial malleolus fracture, possibly with some morti se widening on these nonweightbearing views. Questionable degenerative changes versus nondisplaced ab normality of the posterior malleolus on lateral view. Reviewed by: Johnson Shaw MD on 09/11/2022 9:27 AM PDT Approved by: Johnson Shaw MD on 09/11/2022 9:27 AM PDT Station ID: [id number]
--- NOTE | 2022-09-11 09:29 | XRAY Report ---
PROCEDURE: Foot 3 View RT INDICATIONS: fall/pain TECHNIQUE: 3 views of the foot were acquired. COMPARISON: None FINDINGS: Bones: Hallux valgus alignment. Scattered degenerative changes, overall mild to moderate, particularl y at the first MTP. Medial bunion. No displaced fracture seen in the foot. No dislocation in the foot . Ankle findings are separately dictated. Soft tissues: No suspicious calcifications. IMPRESSION: No acute radiographic abnormality in the foot. Scattered degenerative changes. Ankle fractures are se parately dictated. Reviewed by: Johnson Shaw MD on 09/11/2022 9:28 AM PDT Approved by: Johnson Shaw MD on 09/11/2022 9:28 AM PDT Station ID: [id number]
[2022-09-11] MEDS ORDERED: ACETAMINOPHEN 325 MG TABLET PO STA (09:54)
[2022-09-11] MEDS ORDERED: oxyCODONE 5 MG TABLET PO STA (09:54)
--- NOTE | 2022-09-11 11:46 | ED Physician Documentation ---
PD HPI LOWER EXT INJURY - Stated complaint Stated Complaint: RT ANKLE PX - Chief complaint Chief Complaint: Trauma Ext - History obtained from History obtained from: Patient - Additional information Additional information: Patient is an 82-year-old female presenting for evaluation of right ankle pain that occurred last night. Patient was in her kitchen and her tennis shoe got caught on the floor and did not move with her as she was turning. It caused her to fall. She did not hit her head or have LOC. She reports pain to the right ankle and right chest wall.She was able to get herself up and got her cell phone to the [employer] bus to come to the emergency department this morning. She does not take a blood thinner. She lives alone. She states her family lives in [place].She denies head pain or head injury, difficulty breathing, abdominal pain, extremity pain elsewhere. 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 : None HEENT: None Psych: Depression Musculoskeletal: Osteoarthritis Derm: Rosacea - Past Surgical History Past Surgical History: Yes /ROOF FITTER: Hysterectomy Cardiovascular: Other - Present Medications Home Medications: Ambulatory Orders Medication Instructions Recorded Confirmed Albuterol Sulfate [Proair Hfa 1 - 2 puffs IH Q4HR PRN 04/14/18 09/11/22 Inhaler] Cholecalciferol (Vitamin D3) 1,000 unit PO DAILY 04/14/18 09/11/22 [Vitamin D3] FLUoxetine [PROzac] 40 mg PO DAILY 04/14/18 09/11/22 Fluticasone [Flonase] 1 sprays GAEL DAILY PRN 04/14/18 09/11/22 Atorvastatin [Lipitor] 10 mg PO HS 04/21/22 09/11/22 Montelukast [Singulair] 10 mg PO QPM 04/21/22 09/11/22 Ascorbic Acid [Vitamin C] 500 mg PO DAILY 05/12/22 09/11/22 Biotin 1 tab PO DAILY 05/12/22 09/11/22 Calcium Carbonate [Tums (Calcium 500 mg PO DAILY 05/12/22 09/11/22 Carbonate 500mg)] Cyanocobalamin [Vitamin B-12] 1 tab PO DAILY 05/12/22 09/11/22 Echinacea Purpurea Aerial Ext 1 cap PO DAILY PRN 05/12/22 09/11/22 [Echinacea] Ginkgo Biloba [place] Extract [Ginkgo 1 cap PO DAILY 05/12/22 09/11/22 Biloba] Magnesium Oxide 1 tab PO DAILY 05/12/22 09/11/22 Melatonin/Pyridoxine [Melatonin 5 1 tab PO QPM PRN 05/12/22 09/11/22 mg Tablet] Metronidazole 1% Gel [Metrogel] 1 applic TOP DAILY 05/12/22 09/11/22 Turmeric 1 cap PO DAILY 05/12/22 09/11/22 Ubidecarenone [Co Q-10] 1 cap PO DAILY 05/12/22 09/11/22 Vitamin B Complex 1 tab PO DAILY 05/12/22 09/11/22 Zinc Sulfate 220 mg PO DAILY 05/12/22 09/11/22 Budesonide [Pulmicort] 0.5 mg INH BID #60 ml 05/15/22 09/11/22 Formoterol Fumarate [Perforomist] 20 mcg IH BID #60 ml 05/15/22 09/11/22 Alendronate [Fosamax] 70 mg PO Q7D 09/11/22 09/11/22 Cetirizine [ZyrTEC] 10 mg PO DAILY 09/11/22 09/11/22 Fluticasone/Salmeterol [Advair Hfa 2 puffs IH BID 09/11/22 09/11/22 115-21 Mcg Inhaler] Ipratropium/Albuterol [Duoneb] 3 ml INH Q6H 09/11/22 09/11/22 Oxycodone HCl/Acetaminophen 1 each PO Q6H PRN #14 tablet 09/11/22 [Percocet 5-325 mg Tablet] - Allergies Allergies/Adverse Reactions: Allergies Allergy/AdvReac Type Severity Reaction Status Date / Time latex Allergy Unknown Verified 09/11/22 08:43 milk Allergy Unknown Verified 09/11/22 08:43 oats Allergy Respiratory Verified 09/11/22 08:43 Sulfa (Sulfonamide Allergy Unknown Verified 09/11/22 08:43 Antibiotics) terfenadine [From Seldane] Allergy Unknown Verified 09/11/22 08:43 tannic acid Allergy Respiratory Uncoded 09/11/22 08:43 - Social History Does the pt smoke?: No Smoking Status: Never smoker Does the pt drink ETOH?: No Does the pt have substance abuse?: No - Immunizations Immunizations are current?: Yes - POLST Patient has POLST: No PD ED PE NORMAL - General General: Alert and oriented X 3, No acute distress, Well developed/nourished - HEENT HEENT: Atraumatic, Pharynx benign - Neck Neck: Supple, no meningeal sign, No bony TTP - Cardiac Cardiac: RRR - Respiratory Respiratory: No respiratory distress, Clear bilaterally - Abdomen Abdomen: Soft, Non tender - Back Back: No spinal TTP - Derm Derm: Warm and dry - Extremities Extremities: Other (Swelling and bruising to right ankle and foot, Pedal pulses intact,No tenderness more proximally) - Neuro Neuro: Alert and oriented X 3, 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 Syed. Reviewed patient's presentations as well as x-ray images which she was also able to view. He states that the patient should be in a well-padded splint. He can follow-up with the patient as an outpatient. He states that there may not be a need to do surgery as the fragments appear to be well aligned.And certainly he would not do surgery today or in the next several days until the swelling has reduced. Patient is an 82 yo F Presenting for evaluation after a ground-level fall at home that occurred last night with obvious injury to right ankle. She did not h ave head injury and has a normal neuro exam. A chest x-ray was obtained which does not show signs of a broken rib or pneumothorax.X-rays of the ankle and foot of the right were obtained which I reviewed and demonstrate a bimalleolar fracture.The mortise appears to be intact and I do not see signs of a dislocation requiring reduction.Orthopedic surgery was consulted and patient was placed into a well-padded splint.There is a concern regarding discharge plan as the patient lives alone and her family is in [place] and she should not be weightbearing with this injury.Staff was able to reach out to her daughter Kt Thakkar who will be flying back home to help her mother and will possibly be taking her back to [place] with her. Daughter was also able to reach out to a evangelical friend who will be able to assist the patient at home until the daughter arrives later tonight.They do have access to a wheelchair and understand to get a bedside commode.Patient was given a copy of her x-ray. She does not have signs of injury elsewhere.Her pain was adequately controlled here. She did not have symptoms to suggest syncope or other cause of her fall.She is counseled on need for follow-up with orthopedic surgery and advised on concerning symptoms to return for. Departure - Departure Disposition: 01 Home, Self Care Clinical Impression: Closed right ankle fracture Condition: Stable Instructions: ED Fx Ankle General Follow-Up: Solo Syed MD [Provider Admit Priv/Credential] - Prescriptions: Oxycodone HCl/Acetaminophen [Percocet 5-325 mg Tablet] 1 each PO Q6H PRN #14 tablet PRN Reason: pain Comments: You Have a fracture to your right ankle. This has been placed into a splint. You need close follow-up with an orthopedic surgeon and I listed the name of 1 locally that you can call for close follow-up. In the meanwhile you should not be putting weight on the foot. You need to use a wheelchair to get around and you can use a walker to help stand you up to pivot. Your chest x-ray shows possible small lung nodules.I would recommend close follow-up with your primary care doctor as you may need further imaging like a CT scan.At this time the nodules do not appear suspicious but they do need to be monitored to ensure that they are not growing in size at which time they May need further evaluation to make sure they are not cancerous. I have sent a prescription for narcotic pain medication to [facility] in [place]. This can make you constipated so I would recommend taking a stool softener with it. Otherwise you can take plain acetaminophen or ibuprofen as needed for pain. Please make sure to not take too much acetaminophen total for the day. I am prescribing a short course of narcotic pain medication for you. These are potentially dangerous and addictive medications that should be used carefully. These medications may constipate you. Take an xwjv-hec-[id number] stool softener (docusate) twice daily with plenty of water while taking these medications. If you go 24 hours without a bowel movement, take [id number] miralax, per package instructions. Do not drink or drive while taking these medications. If you received narcotic or sedating medications while in the emergency department, do not drive for 24 hours. Store this medication in a safe, secure place and out of reach of children. It is a violation of federal law to give or sell this medication to another person or to use in a manner other than prescribed. The ED will not refill narcotic prescriptions, including prescriptions lost or stolen. To dispose of unwanted medications: 1. [facility] at [address] in [place] has a medication drop box. They accept prescription medications (in pill form) Wednesday through Wednesday 9:00 a.m. to 5:00 p.m. 2. [facility] [employer] accepts prescription medications (in pill form only) for disposal year round. Call for more information. 3. Contact the [facility] for the next [facility] sponsored prescription drug collection event. , [phone], or [phone]; Note that many narcotic pain relievers also contain Tylenol/acetaminophen. Please ensure that your total dose of acetaminophen from all sources does not exceed 3 g (3000 mg) per day. Discharge Date/Time: 09/11/22 16:36
[2022-09-11 15:42] VITALS: BP 123/68
== END 2022-09-11 16:36 | disposition home or self-care (01) ==
LOC: ED 08:33
DX: S82.841A Displaced bimalleolar fracture of right lower leg, initial encounter for closed fracture (principal); W01.0XXA Fall on same level from slipping, tripping and stumbling without subsequent striking against object, initial encounter; Y93.89 Activity, other specified; Y92.000 Kitchen of unspecified non-institutional (private) residence as the place of occurrence of the external cause; R91.8 Other nonspecific abnormal finding of lung field
CPT/HCPCS: 71045; 73610; 73630; 99284; A9270

== ENCOUNTER 2023-01-13 08:46 | Outpatient (CLI) | payer MEDICARE, OTHER ==
[2023-01-13 08:57] LABS: BASOPHILS % (AUTO) 0.5 %; EOSINOPHILS # (AUTO) 0.2 10^3/uL (0.0-0.7); EOSINOPHILS % (AUTO) 3.5 %; HCT - HEMATOCRIT 43.3 % (37.0-47.0); LYMPHOCYTES # (AUTO) 1.4 10^3/uL (1.5-3.5); LYMPHOCYTES % (AUTO) 20.5 %; MEAN CORPUSCULAR HEMOGLOBIN 28.9 pg (27.0-31.0); MEAN CORPUSCULAR HGB CONC 32.3 g/dL (32.0-36.0); MEAN CORPUSCULAR VOLUME 89.5 fL (81.0-99.0); MEAN PLATELET VOLUME 8.5 fL (7.9-10.8); MONOCYTES # (AUTO) 0.4 10^3/uL (0.0-1.0); MONOCYTES % (AUTO) 6.7 %; NEUTROPHILS # (AUTO) 4.5 10^3/uL (1.5-6.6); NEUTROPHILS % (AUTO) 68.5 %; PLT - PLATELET COUNT 270 10^3/uL (130-450); RED BLOOD COUNT 4.84 10^6/uL (4.20-5.40); RED CELL DISTRIBUTION WIDTH 12.8 % (12.0-15.0); WHITE BLOOD COUNT 6.6 x10^3/uL (4.8-10.8)
[2023-01-13 09:14] LABS: ALBUMIN 4.1 g/dL (3.2-5.5); ALBUMIN/GLOBULIN RATIO 1.6 (1.0-2.2); BILIRUBIN,TOTAL 1.4 mg/dL (0.2-1.0); CALCIUM 9.6 mg/dL (8.5-10.3); CREATININE 0.6 mg/dL (0.6-1.3); POTASSIUM 4.4 mmol/L (3.5-4.5); TOTAL PROTEIN 6.6 g/dL (6.4-8.9)
== END 2023-01-13 08:47 | disposition home or self-care (01) ==
LOC: LAB 08:46
PROVIDERS: ATTEND Physician Assistant Medical
DX: J18.9 Pneumonia, unspecified organism (principal)
CPT/HCPCS: 36415; 80053; 85025

== ENCOUNTER 2023-02-16 11:27 | Outpatient (CLI) | payer MEDICARE, OTHER ==
--- NOTE | 2023-02-16 17:31 | Ultrasound Report ---
PROCEDURE: Head or Neck Soft Tissue INDICATIONS: THYROID NODULE TECHNIQUE: Real-time scanning was performed of the thyroid gland, with image documentation. COMPARISON: Thyroid ultrasound 03/29/2020 FINDINGS: Right: Thyroid lobe measures 4.6 x 2.1 x 1.9 cm, and is homogeneous in echotexture. Left: Thyroid lobe measures 4.1 x 1.8 x 1.3 cm, and is homogenous in echotexture. Isthmus: 2 mm thick. Nodule number: One Location: Right posterior lateral Size: Previously 2.4 x 0.9 x 0.9 cm. Not seen on current exam Nodule number: Two Location: Right mid anterior Size: 1.1 x 0.6 x 0.9 cm compared to 1.4 x 0.5 x 1.4 cm. Composition: Solid. Echogenicity: Hypoechoic. Shape: wider than tall. Margins: Smooth (0 points). Echogenic foci: Punctate. Total points: 7 ACR TI-RADS category: 5. Nodule number: Three Location: Right inferior Size: 1.2 x 1.1 x 1.1 cm compared to 1.4 x 1.1 x 1.4 cm. Composition: Mixed. Echogenicity: Hypoechoic. Shape: wider than tall. Margins: Smooth (0 points). Echogenic foci: None (0 points). Total points: 3 ACR TI-RADS category: 3. Nodule number: Four Location: Left superior Size: 0.7 x 0.5 x 0.5 cm. 0.8 x 0.6 x 0.6 cm. Composition: Solid. Echogenicity: Hypoechoic. Shape: wider than tall. Margins: Smooth (0 points). Echogenic foci: None (0 points). Total points: 4 ACR TI-RADS category: 4. Nodule number: 5 Location: Left mid Size: 0.9 x 0.7 x 0.5 cm compared to 2 0.9 x 0.7 x 0.8 cm cm. Composition: Mixed. Echogenicity: Hypoechoic. Shape: wider than tall. Margins: Smooth (0 points). Echogenic foci: None (0 points). Total points: 3 ACR TI-RADS category: 3. Nodule number: 6 Location: Left inferior Size: 1.0 x 0.6 x 0.9 cm compared to 1.3 x 1.2 x 0.9 cm. Composition: Solid. Echogenicity: Hypoechoic. Shape: wider than tall. Margins: Smooth (0 points). Echogenic foci: Punctate. Total points: 7 ACR TI-RADS category: 5. IMPRESSION: Lesion 1 on prior exam not currently identified. Lesions 2, 4 and 6 are considered category 5. They are stable or decreased in size compared to prior exam. Lesion 3 and 5 are considered category 3 and are similar or decreased in size. ACR TI-RADS definitions and recommendations: TI-RADS 1 (benign): 0 points. FNA not needed. TI-RADS 2 (not suspicious): 2 points. FNA not needed. TI-RADS 3 (mildly suspicious): 3 points. "FNA if 2.5 cm or larger, follow up if 1.5 cm or larger (at 1, 3, and 5 years). TI-RADS 4 (moderately suspicious): 4-6 points. "FNA if 1.5 cm or larger, follow up if 1 cm or larger (at 1, 2, 3, and 5 years). TI-RADS 5 (highly suspicious): 7 points or more. "FNA if 1 cm or larger, follow up if 0.5 cm or larger (every year for 5 years). Reviewed by: Jennifer Wetzel MD on 02/16/2023 5:30 PM PDT Approved by: Jennifer Wetzel MD on 02/16/2023 5:30 PM PDT Station ID: [id number]
== END 2023-02-16 11:28 | disposition home or self-care (01) ==
LOC: DI 11:27
PROVIDERS: ATTEND Physician Assistant Medical
DX: E04.2 Nontoxic multinodular goiter (principal)

== ENCOUNTER 2023-04-13 16:50 | Emergency (ER) | payer MEDICARE, OTHER ==
[2023-04-13 17:03] VITALS: BP 130/72; O2SAT 98
--- NOTE | 2023-04-13 17:09 | ED Physician Documentation ---
PD HPI UPPER EXT INJURY - Stated complaint Stated Complaint: LT ARM INJ - Chief complaint Chief Complaint: Trauma Ext - History of Present Illness Location: Left, Wrist Type of injury: No: Fall, Twist, Blunt / blow, Penetrating / stab / GSW Where injury occurred: Home - Additonal information Additional information: 83-year-old female presents with left wrist pain. She states several days ago she was doing some cleaning and felt a "crunch," and since then she has had some mild swelling and pain. She also has pain particularly with flexion but also some with extension. The pain Is around the entire left wrist but also radiates into the left middle finger. She denies any falls or significant trauma but did use her wrist while cleaning several days ago. She is wearing a wrist brace that she states does give her some relief. PD PAST MEDICAL HISTORY - Past Medical History Past Medical History: Yes Cardiovascular: High cholesterol, Atrial fibrillation Respiratory: Asthma, COPD Neuro: None Endocrine/Autoimmune: None GI: None CORPORATE COMMUNICATIONS ASSOCIATE: None : None HEENT: None Psych: Depression Musculoskeletal: Osteoarthritis Derm: Rosacea - Past Surgical History Past Surgical History: Yes /CORPORATE COMMUNICATIONS ASSOCIATE: Hysterectomy Cardiovascular: Other - Present Medications Home Medications: Ambulatory Orders Medication Instructions Recorded Confirmed Albuterol Sulfate [Proair Hfa 1 - 2 puffs IH Q4HR PRN 04/14/18 09/11/22 Inhaler] Cholecalciferol (Vitamin D3) 1,000 unit PO DAILY 04/14/18 09/11/22 [Vitamin D3] FLUoxetine [PROzac] 40 mg PO DAILY 04/14/18 09/11/22 Fluticasone [Flonase] 1 sprays GAEL DAILY PRN 04/14/18 09/11/22 Atorvastatin [Lipitor] 10 mg PO HS 04/21/22 09/11/22 Montelukast [Singulair] 10 mg PO QPM 04/21/22 09/11/22 Ascorbic Acid [Vitamin C] 500 mg PO DAILY 05/12/22 09/11/22 Biotin 1 tab PO DAILY 05/12/22 09/11/22 Calcium Carbonate [Tums (Calcium 500 mg PO DAILY 05/12/22 09/11/22 Carbonate 500mg)] Cyanocobalamin [Vitamin B-12] 1 tab PO DAILY 05/12/22 09/11/22 Echinacea Purpurea Aerial Ext 1 cap PO DAILY PRN 05/12/22 09/11/22 [Echinacea] Ginkgo Biloba [place] Extract [Ginkgo 1 cap PO DAILY 05/12/22 09/11/22 Biloba] Magnesium Oxide 1 tab PO DAILY 05/12/22 09/11/22 Melatonin/Pyridoxine [Melatonin 5 1 tab PO QPM PRN 05/12/22 09/11/22 mg Tablet] Metronidazole 1% Gel [Metrogel] 1 applic TOP DAILY 05/12/22 09/11/22 Turmeric 1 cap PO DAILY 05/12/22 09/11/22 Ubidecarenone [Co Q-10] 1 cap PO DAILY 05/12/22 09/11/22 Vitamin B Complex 1 tab PO DAILY 05/12/22 09/11/22 Zinc Sulfate 220 mg PO DAILY 05/12/22 09/11/22 Budesonide [Pulmicort] 0.5 mg INH BID #60 ml 05/15/22 09/11/22 Formoterol Fumarate [Perforomist] 20 mcg IH BID #60 ml 05/15/22 09/11/22 Alendronate [Fosamax] 70 mg PO Q7D 09/11/22 09/11/22 Cetirizine [ZyrTEC] 10 mg PO DAILY 09/11/22 09/11/22 Fluticasone/Salmeterol [Advair Hfa 2 puffs IH BID 09/11/22 09/11/22 115-21 Mcg Inhaler] Ipratropium/Albuterol [Duoneb] 3 ml INH Q6H 09/11/22 09/11/22 Oxycodone HCl/Acetaminophen 1 each PO Q6H PRN #14 tablet 09/11/22 [Percocet 5-325 mg Tablet] - Allergies Allergies/Adverse Reactions: Allergies Allergy/AdvReac Type Severity Reaction Status Date / Time latex Allergy Unknown Verified 04/13/23 17:01 milk Allergy Unknown Verified 04/13/23 17:01 oats Allergy Respiratory Verified 04/13/23 17:01 Sulfa (Sulfonamide Allergy Unknown Verified 04/13/23 17:01 Antibiotics) terfenadine [From Seldane] Allergy Unknown Verified 04/13/23 17:01 tannic acid Allergy Respiratory Uncoded 04/13/23 17:01 - Social History Does the pt smoke?: No Smoking Status: Never smoker Does the pt drink ETOH?: No Does the pt have substance abuse?: No - Immunizations Immunizations are current?: Yes - POLST Patient has POLST: No PD ED PE NORMAL - Vitals Vital signs reviewed: Yes - General General: Alert and oriented X 3, No acute distress, Well developed/nourished - Derm Derm: Normal color, Warm and dry - Extremities Extremities: No tenderness to palpate ( moderate swelling the left wrist is tender to palpate throughout), Normal ROM s pain (. Patient has pain mostly with wrist flexion but also some with dorsiflexion. She has very minimal wrist flexion due to pain.), No edema (There is generalized left wrist swelling.), Other (2+ radial pulses with brisk cap refill of the left hand.). No: No deformity (There is chronic arthritic changes to the left wrist with) Results - Vitals Vitals: Vital Signs - 24 hr 04/13/23 16:57 Temperature 36.7 C Heart Rate 78 Respiratory 16 Rate Blood Pressure 130/72 O2 Saturation 98 Oxygen O2 Source Room air - Rads (name of study) No standard instances Relevant Findings:: Final report received PD Medical Decision Making - ED course Complexity details: reviewed results, d/w patient ED course: 83-year-old female presented with left wrist pain after using it while cleaning a few days ago. She has left wrist pain and swelling on physical exam no obvious deformities. Hand x-ray which shows severe Arthritic changes but no acute fractures. The patient already has a wrist brace which is sufficient and I advised her to continue to use that, she can use a cool compress, Tylenol as needed for pain, and I let her know that it may take a couple of weeks to improve. If worsening or new concerns, she can follow-up in the ER or with her PCP. Patient discharged home in stable condition. Departure - Departure Disposition: 01 Home, Self Care Clinical Impression: Injury of wrist Qualifiers: Encounter type: initial encounter Laterality: left Qualified Code(s): S69.92XA - Unspecified injury of left wrist, hand and finger(s), initial encounter Condition: Good Instructions: ED Sprain Wrist Comments: Your x-ray shows arthritic changes in your left wrist but I do not see any obvious broken bones. You can continue to wear the wrist brace that you purchased in use a cool compress to help with swelling. You also may take ibuprofen or Tylenol as tolerated. Keep the wrist elevated whenever possible for the next week or so but you should do light range of motion and try to avoid any strenuous exercise or repetitive motion with this wrist. Forms: PCP List Discharge Date/Time: 04/13/23 18:16
--- NOTE | 2023-04-13 19:10 | XRAY Report ---
PROCEDURE: Wrist 4 View LT INDICATIONS: Trauma TECHNIQUE: 3 views of the wrist were acquired. COMPARISON: None. FINDINGS: Bones: No fractures or dislocations. Advanced degenerative change. Bones are osteopenic. No suspicio us bony lesions. Soft tissues: No suspicious soft tissue calcifications or masses. Chondrocalcinosis at the DRUJ. IMPRESSION: No fracture identified. Bones are osteopenic. Chondrocalcinosis. Reviewed by: Rambo Braden MD on 04/13/2023 7:09 PM PDT Approved by: Rambo Braden MD on 04/13/2023 7:09 PM PDT Station ID: [id number]
== END 2023-04-13 18:16 | disposition home or self-care (01) ==
LOC: ED 16:50
DX: S69.92XA Unspecified injury of left wrist, hand and finger(s), initial encounter (principal); X58.XXXA Exposure to other specified factors, initial encounter; Y93.89 Activity, other specified; I48.91 Unspecified atrial fibrillation; E78.00 Pure hypercholesterolemia, unspecified; J44.9 Chronic obstructive pulmonary disease, unspecified; Z79.899 Other long term (current) drug therapy; Z91.040 Latex allergy status
CPT/HCPCS: 99283

== ENCOUNTER 2023-06-23 10:30 | Emergency (ER) | payer MEDICARE, OTHER ==
[2023-06-23 10:54] VITALS: BP 139/94; O2SAT 99
--- NOTE | 2023-06-23 11:06 | XRAY Report ---
PROCEDURE: Chest 1V INDICATIONS: cough/congestion TECHNIQUE: One view of the chest was acquired. COMPARISON: 09/11/2022 FINDINGS: Surgical changes and devices: None. Lungs and pleura: No pleural effusions or pneumothorax. Lungs are clear. Mediastinum: Mediastinal contours appear normal. Heart size is normal. Bones and chest wall: No suspicious bony lesions. Overlying soft tissues appear unremarkable. IMPRESSION: No acute process. Reviewed by: Arnoldo Callahan MD on 06/23/2023 11:05 AM [facility] Approved by: Arnoldo Callahan MD on 06/23/2023 11:05 AM [facility] Station ID: [id number]
[2023-06-23 12:03] LABS: B. PARAPERTUSSIS- RESP PCR PAN NOT DETECTED; B. PERTUSSIS- RESP PCR PANEL NOT DETECTED; C. PNEUMONIAE- RESP PCR PANEL NOT DETECTED; CORONAVIRUS 229E-RESP PCR NOT DETECTED; CORONAVIRUS HKU1-RESP PCR NOT DETECTED; CORONAVIRUS NL63-RESP PCR NOT DETECTED; CORONAVIRUS OC43-RESP PCR NOT DETECTED; HUMAN METAPNEUMOVIRUS NOT DETECTED; INFLUENZA A- RESP PCR PANEL NOT DETECTED; INFLUENZA B - RESP PCR PANEL NOT DETECTED; M. PNEUMONIAE- RESP PCR PANEL NOT DETECTED; PARAINFLUENZA VIRUS 1 NOT DETECTED; PARAINFLUENZA VIRUS 2 NOT DETECTED; PARAINFLUENZA VIRUS 3 NOT DETECTED; PARAINFLUENZA VIRUS 4 NOT DETECTED; RHINOVIRUS/ENTEROVIRUS DETECTED; RSV- RESP PCR PANEL NOT DETECTED; SARS-CoV-2 -RESP PCR PANEL NOT DETECTED
--- NOTE | 2023-06-23 15:10 | ED Physician Documentation ---
PD HPI URI - Stated complaint Stated Complaint: SOA - Chief complaint Chief Complaint: Resp - History obtained from History obtained from: Patient - History of Present Illness Timing - onset: How many weeks ago (1-2) Timing duration: Weeks (1-2) Timing details: Gradual onset (was down to [place] for holidays and felt ill there with cough and wheezing. Returned few days ago and feeling worse cough, productive sputum and sinus pressure/drainage. No edema, no leg swelling. Plane flights were just few hours.), Still present Associated symptoms: Fever, Chills, Nasal congestion, Sinus pain, Productive cough, Dyspnea. No: NVD Contributing factors: Travel, COPD / asthma. No: Immunocompromised Recently seen: Not recently seen Review of Systems Constitutional: reports: Fever, Chills, Myalgias Nose: reports: Rhinorrhea / runny nose, Congestion Throat: denies: Sore throat Cardiac: denies: Chest pain / pressure Respiratory: reports: Dyspnea, Cough, Wheezing GI: denies: Vomiting, Diarrhea Skin: denies: Rash Neurologic: denies: Altered mental status PD PAST MEDICAL HISTORY - Past Medical History Past Medical History: Yes Cardiovascular: High cholesterol, Atrial fibrillation Respiratory: Asthma, COPD Neuro: None Endocrine/Autoimmune: None GI: None CONCESSIONIST: None : None HEENT: None Psych: Depression Musculoskeletal: Osteoarthritis Derm: Rosacea - Past Surgical History Past Surgical History: Yes /CONCESSIONIST: Hysterectomy Cardiovascular: Other - Present Medications Home Medications: Ambulatory Orders Medication Instructions Recorded Confirmed Albuterol Sulfate [Proair Hfa 1 - 2 puffs IH Q4HR PRN 04/14/18 09/11/22 Inhaler] Cholecalciferol (Vitamin D3) 1,000 unit PO DAILY 04/14/18 09/11/22 [Vitamin D3] FLUoxetine [PROzac] 40 mg PO DAILY 04/14/18 09/11/22 Fluticasone [Flonase] 1 sprays GAEL DAILY PRN 04/14/18 09/11/22 Atorvastatin [Lipitor] 10 mg PO HS 04/21/22 09/11/22 Montelukast [Singulair] 10 mg PO QPM 04/21/22 09/11/22 Ascorbic Acid [Vitamin C] 500 mg PO DAILY 05/12/22 09/11/22 Biotin 1 tab PO DAILY 05/12/22 09/11/22 Calcium Carbonate [Tums (Calcium 500 mg PO DAILY 05/12/22 09/11/22 Carbonate 500mg)] Cyanocobalamin [Vitamin B-12] 1 tab PO DAILY 05/12/22 09/11/22 Echinacea Purpurea Aerial Ext 1 cap PO DAILY PRN 05/12/22 09/11/22 [Echinacea] Ginkgo Biloba [place] Extract [Ginkgo 1 cap PO DAILY 05/12/22 09/11/22 Biloba] Magnesium Oxide 1 tab PO DAILY 05/12/22 09/11/22 Melatonin/Pyridoxine [Melatonin 5 1 tab PO QPM PRN 05/12/22 09/11/22 mg Tablet] Metronidazole 1% Gel [Metrogel] 1 applic TOP DAILY 05/12/22 09/11/22 Turmeric 1 cap PO DAILY 05/12/22 09/11/22 Ubidecarenone [Co Q-10] 1 cap PO DAILY 05/12/22 09/11/22 Vitamin B Complex 1 tab PO DAILY 05/12/22 09/11/22 Zinc Sulfate 220 mg PO DAILY 05/12/22 09/11/22 Budesonide [Pulmicort] 0.5 mg INH BID #60 ml 05/15/22 09/11/22 Formoterol Fumarate [Perforomist] 20 mcg IH BID #60 ml 05/15/22 09/11/22 Alendronate [Fosamax] 70 mg PO Q7D 09/11/22 09/11/22 Cetirizine [ZyrTEC] 10 mg PO DAILY 09/11/22 09/11/22 Fluticasone/Salmeterol [Advair Hfa 2 puffs IH BID 09/11/22 09/11/22 115-21 Mcg Inhaler] Ipratropium/Albuterol [Duoneb] 3 ml INH Q6H 09/11/22 09/11/22 Oxycodone HCl/Acetaminophen 1 each PO Q6H PRN #14 tablet 09/11/22 [Percocet 5-325 mg Tablet] Amoxicillin 500 mg PO TID #21 cap 06/23/23 Benzonatate [Tessalon] 100 mg PO TID PRN #20 cap 06/23/23 dexAMETHasone [Decadron] 4 mg PO DAILY #7 tablet 06/23/23 - Allergies Allergies/Adverse Reactions: Allergies Allergy/AdvReac Type Severity Reaction Status Date / Time latex Allergy Unknown Verified 04/13/23 17:01 milk Allergy Unknown Verified 04/13/23 17:01 oats Allergy Respiratory Verified 04/13/23 17:01 Sulfa (Sulfonamide Allergy Unknown Verified 04/13/23 17:01 Antibiotics) terfenadine [From Seldane] Allergy Unknown Verified 04/13/23 17:01 tannic acid Allergy Unknown Respiratory Uncoded 06/23/23 15:34 - Social History Does the pt smoke?: No Smoking Status: Never smoker Does the pt drink ETOH?: No Does the pt have substance abuse?: No - Immunizations Immunizations are current?: Yes - POLST Patient has POLST: No PD ED PE NORMAL - Vitals Vital signs reviewed: Yes (good sats and HR. ) - General General: Alert and oriented X 3, No acute distress, Well developed/nourished - Neck Neck: Supple, no meningeal sign, No adenopathy - Cardiac Cardiac: RRR, No murmur - Respiratory Respiratory: No respiratory distress. No: Clear bilaterally (no coarse sounds but exp wheezing diffusely. ) - Abdomen Abdomen: Soft, Non tender - Derm Derm: Normal color, Warm and dry - Extremities Extremities: Normal ROM s pain, No edema, No calf tenderness / cord - Neuro Neuro: Alert and oriented X 3, No motor deficit, Normal speech Results - Vitals Vitals: Oxygen O2 Source Room air - Labs Labs: Laboratory Tests 06/23/23 10:48 Nasal Adenovirus (PCR) NOT DETECTED Nasal B. parapertussis DNA (PCR) NOT DETECTED Nasal Coronavir 229E PCR NOT DETECTED Nasal Coronavir HKU1 PCR NOT DETECTED Nasal Coronavir NL63 PCR NOT DETECTED Nasal Coronavir OC43 PCR NOT DETECTED Nasal Enterovir/Rhinovir PCR DETECTED A Nasal Influenza B PCR NOT DETECTED Nasal Influenza A PCR NOT DETECTED Nasal Parainfluen 1 PCR NOT DETECTED Nasal Parainfluen 2 PCR NOT DETECTED Nasal Parainfluen 3 PCR NOT DETECTED Nasal Parainfluen 4 PCR NOT DETECTED Nasal RSV (PCR) NOT DETECTED Nasal B.pertussis DNA PCR NOT DETECTED Nasal C.pneumoniae (PCR) NOT DETECTED Gael Human Metapneumo PCR NOT DETECTED Nasal M.pneumoniae (PCR) NOT DETECTED Nasal SARS-CoV-2 (PCR) NOT DETECTED - Rads (name of study) chest xray Relevant Findings:: Prelim report reviewed (no acute process), EMP independent interpretation of test (no noted pneumonia) PD Medical Decision Making - ED course Complexity details: reviewed results (has rhinovirus with wheezing, but excess wheezing due to exac of asthma, so add MDI and steroids. ), considered differential (persistent and worsening cough and wheezing, no productive, with underlying RAD. Consider pneumonia/bronchitis along wih viral illness, add steroids/ abx per guidelines with RAD/asthma exac. and in consideration of prolonged ill/cough with now productive sputum and some sinusitis symptoms. ), d/w patient Departure - Departure Disposition: Home, Self Care Clinical Impression: Acute bronchitis due to Rhinovirus, Exacerbation of asthma Condition: Stable Record reviewed to determine appropriate education?: Yes Follow-Up: Estelle Hooks PA-C [Primary Care Provider] - Prescriptions: Amoxicillin 500 mg PO TID #21 cap dexAMETHasone [Decadron] 4 mg PO DAILY #7 tablet Benzonatate [Tessalon] 100 mg PO TID PRN #20 cap PRN Reason: Cough Comments: Your chest x-ray is clear without any signs of pneumonia. Your respiratory viral panel test is positive for rhinovirus which is a upper respiratory and bronchial virus infection that causes a lot of wheeziness. It does seem to be exacerbating your asthma. I would continue with your albuterol inhaler or nebulizer regularly 3-4 times daily for the next several days to a week. Also add echo Methasone steroid daily for a week. Given your history of asthma/reactive airways, and the prolonged cough etc., there will be concern for bacterial secondary infection and guidelines would recommend adding an antibiotic to cover that possibility. I sent a prescription to your preferred pharmacy. Recheck if not improving well over the next few days and return if worse. Forms: PCP List Discharge Date/Time: 06/23/23 16:35
[2023-06-23] MEDS ORDERED: ALBUTEROL NEB 2.5 MG/3 ML INH STA (15:28)
[2023-06-23] MEDS ORDERED: dexAMETHasone 4 MG TABLET PO STA (15:28)
[2023-06-23] MEDS ORDERED: AMOXICILLIN 250 MG CAPSULE PO STA (15:29)
== END 2023-06-23 16:35 | disposition home or self-care (01) ==
LOC: ED 10:30
DX: J20.6 Acute bronchitis due to rhinovirus (principal); J45.901 Unspecified asthma with (acute) exacerbation
CPT/HCPCS: 71045; 87633; 94640; 94664; 99284; A9270; J8540

== ENCOUNTER 2023-07-29 10:14 | Outpatient (CLI) | payer MEDICARE, OTHER ==
[2023-07-29 10:24] LABS: BILIRUBIN,URINE NEGATIVE (NEGATIVE); GLUCOSE, URINE (UA) NEGATIVE (NEGATIVE); KETONES,URINE (UA) NEGATIVE (NEGATIVE); LEUKOCYTE ESTERASE, URINE TRACE (NEGATIVE); NITRITE,URINE NEGATIVE (NEGATIVE); OCCULT BLOOD,URINE NEGATIVE (NEGATIVE); PROTEIN,URINE NEGATIVE (NEGATIVE); UROBILINOGEN,URINE 1 (NORMAL) E.U./dL (NORMAL)
[2023-07-29 10:25] LABS: CLARITY,URINE CLEAR (CLEAR)
[2023-07-29 10:42] LABS: AMORPHOUS SEDIMENT,UR Few /LPF; BACTERIA,URINE Moderate /HPF (None Seen); RBC,URINE 0-5 /HPF (0-5); SQUAMOUS EPITHELIAL CELL,UR FEW Squamous (<= Few); WBC,URINE 0-3 /HPF (0-5)
[2023-07-29 10:43] LABS: CRYSTALS,URINE 26-50 Ca Oxalate /LPF; MUCUS,URINE Few Strands
== END 2023-07-29 10:15 | disposition home or self-care (01) ==
LOC: LAB.R 10:14
PROVIDERS: ATTEND Nurse Practitioner Family
DX: R32 Unspecified urinary incontinence (principal)
CPT/HCPCS: 81001; 87086

== ENCOUNTER 2023-08-10 07:55 | Outpatient (CLI) | payer MEDICARE, OTHER ==
[2023-08-10 08:05] LABS: BASOPHILS % (AUTO) 0.3 %; EOSINOPHILS # (AUTO) 0.2 10^3/uL (0.0-0.7); EOSINOPHILS % (AUTO) 2.7 %; HCT - HEMATOCRIT 41.7 % (37.0-47.0); HGB - HEMOGLOBIN 13.5 g/dL (12.0-16.0); LYMPHOCYTES # (AUTO) 1.3 10^3/uL (1.5-3.5); LYMPHOCYTES % (AUTO) 14.8 %; MEAN CORPUSCULAR HGB CONC 32.4 g/dL (32.0-36.0); MEAN CORPUSCULAR VOLUME 89.7 fL (81.0-99.0); MEAN PLATELET VOLUME 8.7 fL (7.9-10.8); MONOCYTES # (AUTO) 0.5 10^3/uL (0.0-1.0); MONOCYTES % (AUTO) 6.2 %; NEUTROPHILS # (AUTO) 6.5 10^3/uL (1.5-6.6); NEUTROPHILS % (AUTO) 75.8 %; PLT - PLATELET COUNT 319 10^3/uL (130-450); RED BLOOD COUNT 4.65 10^6/uL (4.20-5.40); RED CELL DISTRIBUTION WIDTH 13.8 % (12.0-15.0); WHITE BLOOD COUNT 8.6 x10^3/uL (4.8-10.8)
[2023-08-10 08:18] LABS: ALBUMIN 3.8 g/dL (3.2-5.5); ALBUMIN/GLOBULIN RATIO 1.2 (1.0-2.2); ALKALINE PHOSPHATASE 170 IU/L (42-121); ALT ALANINE AMINOTRANSFERASE 47 IU/L (10-60); AST ASPARTATE AMINOTRANSFERASE 44 IU/L (10-42); BILIRUBIN,TOTAL 1.6 mg/dL (0.2-1.0); BUN - BLOOD UREA NITROGEN 11 mg/dL (6-20); CALCIUM 9.4 mg/dL (8.5-10.3); CARBON DIOXIDE - CO2 28 mmol/L (21-32); CHLORIDE 97 mmol/L (101-111); CHOL/HDL RATIO 2.3 (<4.4); CHOLESTEROL 163 mg/dL; CREATININE 0.5 mg/dL (0.6-1.3); GFR - MDRD 118 (>89); GLUCOSE 99 mg/dL (74-104); HDL CHOLESTEROL 70 mg/dL; LDL CHOLESTEROL,CALCULATED 76 mg/dL; LDL/HDL RATIO 1.1 (<4.4); POTASSIUM 4.3 mmol/L (3.5-4.5); SODIUM 130 mmol/L (135-145); TRIGLYCERIDES 83 mg/dL (48-352); VLDL CHOLESTEROL 17 mg/dL
[2023-08-10 08:33] LABS: THYROID STIMULATING HORMONE 1.93 uIU/mL (0.34-5.60)
== END 2023-08-10 07:56 | disposition home or self-care (01) ==
LOC: LAB 07:55
PROVIDERS: ATTEND Physician Assistant Medical
DX: E78.5 Hyperlipidemia, unspecified (principal); E04.1 Nontoxic single thyroid nodule; K21.9 Gastro-esophageal reflux disease without esophagitis
CPT/HCPCS: 36415; 80053; 80061; 83721; 84443; 85025

== ENCOUNTER 2024-02-21 14:02 | Emergency (ER) | payer MEDICARE, OTHER ==
--- NOTE | 2024-02-21 15:08 | ED Physician Documentation ---
History of Present Illness - Stated complaint Stated Complaint: FALL - Chief complaint Chief Complaint: Trauma Ext - History obtained from History obtained from: Patient - Additonal information Additional information: Patient is an 84-year-old female presenting to the emergency department after a fall at home. Patient was trying to jump over a white small fence when she tripped and fell on both her knees her chest ribs wrist and arm. Patient notes persistent swelling to left wrist and shoulder and left rib cage. She denies any loss of consciousness. She suspects she hit her head she is not on any blood thinners. 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 : None HEENT: None Psych: Depression Musculoskeletal: Osteoarthritis Derm: Rosacea - Past Surgical History Past Surgical History: Yes /KENO WRITER / RUNNER: Hysterectomy Cardiovascular: Other - Present Medications Home Medications: Ambulatory Orders Medication Instructions Recorded Confirmed Albuterol Sulfate [Proair Hfa 1 - 2 puffs IH Q4HR PRN 04/14/18 02/21/24 Inhaler] Cholecalciferol (Vitamin D3) 1,000 unit PO DAILY 04/14/18 02/21/24 [Vitamin D3] FLUoxetine [PROzac] 40 mg PO DAILY 04/14/18 02/21/24 Fluticasone [Flonase] 1 sprays GAEL DAILY PRN 04/14/18 02/21/24 Atorvastatin [Lipitor] 10 mg PO HS 04/21/22 02/21/24 Montelukast [Singulair] 10 mg PO QPM 04/21/22 02/21/24 Ascorbic Acid [Vitamin C] 500 mg PO DAILY 05/12/22 02/21/24 Biotin 1 tab PO DAILY 05/12/22 02/21/24 Calcium Carbonate [Tums (Calcium 500 mg PO DAILY 05/12/22 02/21/24 Carbonate 500mg)] Cyanocobalamin [Vitamin B-12] 1 tab PO DAILY 05/12/22 02/21/24 Echinacea Purpurea Aerial Ext 1 cap PO DAILY PRN 05/12/22 02/21/24 [Echinacea] Ginkgo Biloba [place] Extract [Ginkgo 1 cap PO DAILY 05/12/22 02/21/24 Biloba] Magnesium Oxide 1 tab PO DAILY 05/12/22 02/21/24 Melatonin/Pyridoxine [Melatonin 5 1 tab PO QPM PRN 05/12/22 02/21/24 mg Tablet] Metronidazole 1% Gel [Metrogel] 1 applic TOP DAILY 05/12/22 02/21/24 Turmeric 1 cap PO DAILY 05/12/22 02/21/24 Ubidecarenone [Co Q-10] 1 cap PO DAILY 05/12/22 02/21/24 Vitamin B Complex 1 tab PO DAILY 05/12/22 02/21/24 Zinc Sulfate 220 mg PO DAILY 05/12/22 02/21/24 Budesonide [Pulmicort] 0.5 mg INH BID #60 ml 05/15/22 02/21/24 Formoterol Fumarate [Perforomist] 20 mcg IH BID #60 ml 05/15/22 02/21/24 Alendronate [Fosamax] 70 mg PO Q7D 09/11/22 09/11/22 Cetirizine [ZyrTEC] 10 mg PO DAILY 09/11/22 02/21/24 Fluticasone Propion/Salmeterol 2 puffs IH BID 09/11/22 02/21/24 [Advair Hfa 115-21 Mcg Inhaler] Ipratropium/Albuterol [Duoneb] 3 ml INH Q6H 09/11/22 02/21/24 Oxycodone HCl/Acetaminophen 1 each PO Q6H PRN #14 tablet 09/11/22 [Percocet 5-325 mg Tablet] Amoxicillin 500 mg PO TID #21 cap 06/23/23 Benzonatate [Tessalon] 100 mg PO TID PRN #20 cap 06/23/23 dexAMETHasone [Decadron] 4 mg PO DAILY #7 tablet 06/23/23 Lidocaine Patch 5% [Lidoderm Patch] 1 patch TOP DAILY PRN #10 patch 02/21/24 traMADol [Ultram] 50 mg PO ONCE PRN 3 Days #6 tablet 02/21/24 - Allergies Allergies/Adverse Reactions: Allergies Allergy/AdvReac Type Severity Reaction Status Date / Time latex Allergy Unknown Verified 02/21/24 14:05 milk Allergy Unknown Verified 02/21/24 14:05 oats Allergy Respiratory Verified 02/21/24 14:05 Sulfa (Sulfonamide Allergy Unknown Verified 02/21/24 14:05 Antibiotics) terfenadine [From Seldane] Allergy Unknown Verified 02/21/24 14:05 tannic acid Allergy Unknown Respiratory Uncoded 06/23/23 15:34 - Social History Does the pt smoke?: No Smoking Status: Never smoker Does the pt drink ETOH?: No Does the pt have substance abuse?: No - Immunizations Immunizations are current?: Yes - POLST Patient has POLST: No PD ED PE NORMAL - Vitals Vital signs reviewed: Yes - General General: Alert and oriented X 3 - HEENT HEENT: Atraumatic, Other (No acute trauma to the head) - Neck Neck: Supple, no meningeal sign, Other (no spinous process tenderness) - Cardiac Cardiac: RRR, No murmur, No gallop, No rub - Respiratory Respiratory: No respiratory distress, Clear bilaterally - Extremities Extremities: Other (Swelling to left wrist without bleeding) - Neuro Neuro: Alert and oriented X 3 Eye Opening: Spontaneous Motor: Obeys Commands Verbal: Oriented GCS Score: 15 Results - Vitals Vitals: Oxygen O2 Source Room air PD Medical Decision Making - ED course Complexity details: reviewed old records ED course: Beth is an 84 yo female presenint from home after a fall while trying to step over a small fence, patient tripped and fell and sustained injury to left wrist and right shoulder and rib pain and bilateral shaffer abrasions. Patient was able to get up. She denies any loss of consciousness and drove herself to the ED. Patient did not take anything for her pain. She denies hitting her head. She is not on any blood thinners. Abrasions on bilateral shins were cleaned thoroughly here in the ED. Patient had steri strips applied and wounds were wrapped bilaterally. patient tolerated this well. Patient had imaging performed given pain after the fall. She had CXR and dedicated rib X-ray showing no acute findings. Right arm did show mildly displaced fracture of distal radius. Patient was given a splint here in the ED. She was re-evaluated shortly after splint applied and she remained neurovascularly intact. Patinet hd no acute fracture of right shoulder on imainging. CT scan of head and neck shows no acute intracranail findings, and no acute cervical spine fracture. Patient updated on findings on CT and and imaging. Patient will be given instructions for strict follow-up with PCP and orthopedics in the outpatient setting. Patient instructed to watch for any numbness, tingling, discoloration, loss of sensation, difficulty moving her hand in outpatient setting as this could be a sign of compartment syndrome and she should return to the ED immediately. Patient understands and is agreeable with this plan. Departure - Departure Disposition: 01 Home, Self Care Clinical Impression: Distal radius fracture, right, Shoulder pain, right, Rib pain on right side Condition: Good Follow-Up: Estelle Hooks PA-C [Primary Care Provider] - JAMSHID CHACON DO [Physician No Access] - Prescriptions: Lidocaine Patch 5% [Lidoderm Patch] 1 patch TOP DAILY PRN #10 patch PRN Reason: pain traMADol [Ultram] 50 mg PO ONCE PRN 3 Days #6 tablet PRN Reason: Analgesia Comments: You were seen here in the emergency department for your shoulder pain wrist pain rib pain and neck and head pain. Your workup here showed a fracture to your radius but no other acute fractures. I have sent pain medication home with you and if you continue to have pain you should return to the emergency department. Follow-up with your PCP in 1 week for reevaluation. I have given you the number for orthopedics for follow-up as well follow-up at next available appointment you will require a cast as the splint is temporary at this time. I am prescribing a short course of narcotic pain medication for you. These are potentially dangerous and addictive medications that should be used carefully. These medications may constipate you. Take an ezbl-rkr-rsdsvby stool softener (docusate) twice daily with plenty of water while taking these medications. If you go 24 hours without a bowel movement, take hclz-ejq-vcepday miralax, per package instructions. Do not drink or drive while taking these medications. If you received narcotic or sedating medications while in the emergency department, do not drive for 24 hours. Store this medication in a safe, secure place and out of reach of children. It is a violation of federal law to give or sell this medication to another person or to use in a manner other than prescribed. The ED will not refill narcotic prescriptions, including prescriptions lost or stolen. To dispose of unwanted medications: 1. [facility]'s Office provides a drop box for medication in pill form only (no liquids) 8:00 am to 4:30 p.m. Wednesday-Wednesday in the lobby of [facility], [address] Empty pills into ziplock bag before disposal. Call [phone] for information. 2.[employer] is a free service available to all [facility] residents. Go to [email or web address] Note that many narcotic pain relievers also contain Tylenol/acetaminophen. Please ensure that your total dose of acetaminophen from all sources does not exceed 3 g (3000 mg) per day. Forms: PCP List Discharge Date/Time: 02/21/24 21:11
--- NOTE | 2024-02-21 16:13 | XRAY Report ---
PROCEDURE: Ribs w/PA Chest 3+V LT INDICATIONS: pain after fall TECHNIQUE: 4 views of the ribs were acquired, along with a single view chest. COMPARISON: Chest radiograph on June 23, 2023. FINDINGS: Surgical changes and devices: None. Bones and chest wall: No acute displaced rib fracture. Remote healed right-sided rib fractures. No s uspicious bony lesions. Overlying soft tissues appear unremarkable. Lungs and pleura: No pleural effusions or pneumothorax. Mild diffuse interstitial prominence. Mediastinum: Mediastinal contours appear normal. Heart size is at the upper limits of normal. Aorti c arch is calcified, versus. IMPRESSION: 1.No acute displaced rib fracture or pneumothorax. 2.Mild diffuse interstitial prominence suggestive of pulmonary edema and/or atypical infection. Reviewed by: Janet Torres MD on 02/21/2024 3:11 PM AKMAYTE Approved by: Janet Torres MD on 02/21/2024 3:11 PM AKDT Station ID: [id number]
--- NOTE | 2024-02-21 16:14 | XRAY Report ---
PROCEDURE: Shoulder 2+V LT INDICATIONS: pain and swelling TECHNIQUE: 4 views of the shoulder were acquired. COMPARISON: None. FINDINGS: Bones: Diffuse osseous demineralization limits sensitivity for subtle nondisplaced fracture. Within these limitations, no definite fracture or dislocation. Mild glenohumeral and acromioclavicular joint space narrowing and juxta-articular osteophytosis. No suspicious bony lesions. Visualized ribs appe ar intact. Soft tissues: No suspicious soft tissue calcifications. Please see same day chest radiograph for add itional findings. IMPRESSION: 1.Diffuse osseous demineralization limits sensitivity for subtle nondisplaced fracture. Within these limitations, no definite fracture or dislocation. If clinical symptoms persist, consider repeat radio graph in 10-14 days versus cross-sectional imaging. 2.Mild glenohumeral and acromioclavicular joint osteoarthritis. Reviewed by: Janet Torres MD on 02/21/2024 3:13 PM DANIEL Approved by: Janet Torres MD on 02/21/2024 3:13 PM DANIEL Station ID: [id number]
--- NOTE | 2024-02-21 16:18 | XRAY Report ---
PROCEDURE: Wrist 3+V LT INDICATIONS: pain and swelling TECHNIQUE: 3 views of the wrist were acquired. COMPARISON: None. FINDINGS: Bones: Acute, transverse, impacted fracture of the distal radius with mild volar displacement and an gulation. Marked first CMC and STT joint space narrowing and juxta-articular osteophytosis. Chondroca lcinosis of the TFCC, radiocarpal joint and scapholunate interval. Degenerative changes throughout th e carpus with narrowing of the radiocarpal joint. Query No suspicious bony lesions. Diffuse osseous demineralization. Subchondral cystic changes of the ulna styloid. Soft tissues: No suspicious soft tissue calcifications or masses. IMPRESSION: 1.Acute, transverse, extra articular fracture of the distal radius with slight volar displacement and angulation. 2.Marked first CMC and STT joint osteoarthritis and scattered degenerative changes. 3.Chondrocalcinosis of the TFCC, radiocarpal joint and scapholunate interval. Reviewed by: Janet Torres MD on 02/21/2024 3:16 PM DANIEL Approved by: Janet Torres MD on 02/21/2024 3:16 PM DANIEL Station ID: [id number]
--- NOTE | 2024-02-21 18:01 | CT Report ---
PROCEDURE: Cervical Spine WO INDICATIONS: pain after fall TECHNIQUE: Noncontrast 3 mm thick sections acquired from the skull base to the T4 level. Sagittal and coronal r eformats were then constructed. For radiation dose reduction, the following was used: automated exp osure control, adjustment of mA and/or kV according to patient size. COMPARISON: CT cervical spine on March 10, 2020. FINDINGS: Image quality: Excellent. Bones: No fractures or dislocations. Moderate to marked multilevel degenerative changes of the spin e with osteophytosis, disc height loss and facet arthropathy, worse at C4-C5. Disc osteophyte complex es at C2-C3, C3-C4 and C4-C5 which result in mild ventral effacement of the central canal. Posteriorl y calcified disc at the C7-T1 level resulting in mild to moderate moderate ventral effacement of the canal which has progressed compared to prior CT C-spine dated March 10, 2020 (). Visualized superior ribs are intact. Straightening of the normal cervical lordosis. Soft tissues: Prevertebral soft tissues are normal in thickness. No paravertebral hematomas. No ap ical pneumothoraces. 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 Thyroid gland is heterogeneous, similar to prior, with no discrete nodule which warrants ultrasound follow-up. IMPRESSION: 1.No acute fracture or traumatic subluxation of the cervical spine. 2.Moderate to marked multilevel degenerative changes which have mildly progressed compared to prior C T dated March 10, 2020.Posteriorly calcified disc at the C7-T1 level resulting in mild to moderat e moderate ventral effacement of the canal. 3.Straightening of the normal cervical lordosis which may be secondary to c-collar versus muscular st rain/spasm. Reviewed by: Janet Torres MD on 02/21/2024 5:00 PM DANIEL Approved by: Janet Torres MD on 02/21/2024 5:00 PM DANIEL Station ID: [id number]
[2024-02-21] MEDS: KETOROLAC 15 MG/ML VIAL IM STA (18:25)
[2024-02-21] MEDS: ACETAMINOPHEN 500 MG TABLET PO STA (18:26)
--- NOTE | 2024-02-21 19:53 | CT Report ---
PROCEDURE: Head WO INDICATIONS: pain after fall TECHNIQUE: Noncontrast 4.5 mm thick angled axial sections acquired from the foramen magnum to the vertex. For r adiation dose reduction, the following was used: automated exposure control, adjustment of mA and/or kV according to patient size. COMPARISON: CT head 03/10/2022. FINDINGS: Image quality: Diagnostic. CSF spaces: Basal cisterns are patent. No extra-axial fluid collections. Ventricles are normal in size and shape. Brain: No midline shift. No intracranial masses or hemorrhage. Steven-white matter interface is norm al. Redemonstration of prominent posterior fossa arachnoid cyst Skull and face: Calvarium and visualized facial bones are intact, without suspicious lesions. Sinuses: Visualized sinuses and mastoids are clear. IMPRESSION: No acute intracranial pathology. Reviewed by: Alaina Hannah MD, PhD on 02/21/2024 7:52 PM PDT Approved by: Alaina Hannah MD, PhD on 02/21/2024 7:52 PM PDT Station ID: [id number]
[2024-02-21 21:11] VITALS: BP 154/92; O2SAT 97
== END 2024-02-21 21:11 | disposition home or self-care (01) ==
LOC: ED 14:02
DX: S80.812A Abrasion, left lower leg, initial encounter (principal); S80.811A Abrasion, right lower leg, initial encounter; S52.552A Other extraarticular fracture of lower end of left radius, initial encounter for closed fracture; M25.512 Pain in left shoulder; R07.81 Pleurodynia; W01.0XXA Fall on same level from slipping, tripping and stumbling without subsequent striking against object, initial encounter; Y93.89 Activity, other specified; Y92.007 Garden or yard of unspecified non-institutional (private) residence as the place of occurrence of the external cause
CPT/HCPCS: 70450; 71101; 72125; 73030; 73110; 96372; 99283; 99284; A9270

== ENCOUNTER 2024-02-25 09:58 | Outpatient (CLI) | payer MEDICARE, OTHER ==
--- NOTE | 2024-02-26 11:35 | XRAY Report ---
PROCEDURE: Chest 2V INDICATIONS: COUGH TECHNIQUE: 2 views of the chest were acquired. COMPARISON: Chest x-ray 06/23/2023 and 09/11/2022. FINDINGS: Surgical changes and devices: None. Lungs and pleura: No pleural effusions or pneumothorax. Lungs are clear of acute opacities. Scarring in the left lung base is stable. Stable small lung nodules. Mediastinum: Mediastinal contours appear normal. Heart size is normal. Bones and chest wall: No suspicious bony lesions. Overlying soft tissues appear unremarkable. IMPRESSION: No acute cardiopulmonary process. Reviewed by: Yolanda Haywood MD, PhD on 02/26/2024 11:33 AM PDT Approved by: Yolanda Haywood MD, PhD on 02/26/2024 11:33 AM PDT Station ID: [id number]
--- NOTE | 2024-02-26 11:37 | XRAY Report ---
PROCEDURE: Thoracic Spine 3V INDICATIONS: THORACIC BACK PAIN TECHNIQUE: 3 views of the thoracic spine were acquired. COMPARISON: None. FINDINGS: Bones: Bones are diffusely osteopenic. Convex right thoracic spine scoliosis. Loss of height in in th e T11, T12 and L2 vertebral bodies compatible compression fracture of indeterminate age. Spine degene rative disc disease and facet arthropathy are noted. No suspicious bony lesions. 12 pairs of ribs a re noted, and appear intact where visualized. Soft tissues: No paravertebral stripe thickening. IMPRESSION: T11, T12 and L2 compression fracture of indeterminate age. Consider CT scan or MRI scanning for addit ional evaluation Reviewed by: Yolanda Haywood MD, PhD on 02/26/2024 11:36 AM PDT Approved by: Yolanda Haywood MD, PhD on 02/26/2024 11:36 AM PDT Station ID: [id number]
== END 2024-02-25 09:59 | disposition home or self-care (01) ==
LOC: DI 09:58
PROVIDERS: ATTEND Nurse Practitioner
DX: M48.54XA Collapsed vertebra, not elsewhere classified, thoracic region, initial encounter for fracture (principal); M48.56XA Collapsed vertebra, not elsewhere classified, lumbar region, initial encounter for fracture; M51.34 Other intervertebral disc degeneration, thoracic region; M47.814 Spondylosis without myelopathy or radiculopathy, thoracic region

== ENCOUNTER 2024-03-09 14:02 | Outpatient (CLI) | payer MEDICARE, OTHER ==
--- NOTE | 2024-03-09 21:09 | XRAY Report ---
PROCEDURE: Wrist 3+V LT INDICATIONS: LEFT WRIST PAIN TECHNIQUE: 3 views of the wrist were acquired. COMPARISON: Left wrist x-ray 02/29/2024 FINDINGS: Diffuse osseous demineralization. Reidentified, impacted fracture of the distal radius with mild dors al angulation of the distal fracture fragment. Reidentified nondisplaced ulnar styloid process fractu re. TFCC chondrocalcinosis. Severe 1st CMC and triscaphe osteoarthritis. IMPRESSION: Continued healing of distal radial and ulnar styloid process fractures without significant change in alignment. Reviewed by: Kem De Paz MD on 03/09/2024 9:08 PM PDT Approved by: Kem De Paz MD on 03/09/2024 9:08 PM PDT Station ID: [id number]
== END 2024-03-09 14:03 | disposition home or self-care (01) ==
LOC: DI 14:02
PROVIDERS: ATTEND Orthopaedic Surgery
DX: S52.502D Unspecified fracture of the lower end of left radius, subsequent encounter for closed fracture with routine healing (principal); S52.615D Nondisplaced fracture of left ulna styloid process, subsequent encounter for closed fracture with routine healing